=== PATIENT | male | born 1965 | race Caucasian/White ===

== ENCOUNTER 2021-03-26 10:04 | Emergency (ER) | payer MEDICAID, SELFPAY ==
[2021-03-26 10:07] VITALS: BP 129/75; PULSE 71; RESP 16; TEMP 36.5; O2SAT 99
--- NOTE | 2021-03-26 10:58 | NUR.NOTE ---
referral to [facility] for pcp establishment
[2021-03-26] MEDS: Lidocaine 2% Viscous 15 ML CUP PO (11:15)
[2021-03-26] MEDS: Clindamycin 300 MG CAP PO (11:15)
--- NOTE | 2021-03-26 11:45 | W.ED.GENAD ---
Discharge Plan Disposition Patient Disposition: HOME Condition: Stable Discharge Details Clinical Impression: Dental infection Primary Care Provider: Unknown,Unknown ED Provider: José Miguel Nick Home Meds and New Rx's Prescriptions: New clindamycin HCl 300 mg capsule 300 mg PO Q8H 10 Days Qty: 30 RF: 0 Continued lisinopril 20 mg Tablet RF: 0 oxycodone-acetaminophen [Percocet] 10-325 mg Tablet 1 tab PO Q6H PRNRF: 0 lorazepam 2 mg Tablet 2 mg PO DAILY PRNRF: 0 fluoxetine [Prozac] 20 mg Capsule 20 mg PO DAILY RF: 0 Eliquis 5 mg Tablet 5 mg PO BID RF: 0 Discharge Instructions Instructions: Dental Abscess (ED) Additional Instructions: Clindamycin as directed. Warm compresses every 2 hours for 20 minutes. Please watch for new or worsening symptoms and return to the ER for any concerns. Continue taking the Percocet you are already prescribed for your discomfort. [id number] medication as directed for symptomatic control. I have given you the local dental list, I recommend contacting all of the clinics locally to set up prompt outpatient reevaluation. I have also contacted our care management team to help expedite your outpatient primary care follow-up. Your chronic medications will need to be prescribed through 1 provider especially the narcotic medication. Please call Vivi at the [facility] at [phone]. Discharge Data Discharge Date/Time-TO BE ENTERED AT DEPARTURE: 03/26/21 11:57 Medical Decision Making 56-year-old gentleman presenting for right-sided facial pain and swelling over the past few days worsening in nature. Patient did take leftover Cipro tablets. He is also been taking his Percocet that he is prescribed. Clinically he appears well, nontoxic, is normotensive, no evidence of tachycardia, fever, trismus, etc. Airway is patent. Given his allergy to the penicillins, I will place him on oral clindamycin. Given he is on Eliquis I would prefer not to perform a digital block to avoid any potential complications. Patient is already taking Percocet, unable to take NSAIDs. I see no clear indication he requires additional narcotic medication at this time. I will provide him with viscous lidocaine. We had a lengthy conversation regarding his recent move to the area, need to establish primary care and dental follow-up. I have placed him on the care management list to help expedite outpatient primary care provider. He also states he contacted 2 or 3 local dentist and cannot be seen for a couple of days although in the broad scheme of follow-up I believe 2 or 3-day follow-up is completely appropriate. I will also provide him with the local dental list so that he may contact additional dentist to see if he can be seen sooner. Clinically there is no clear abscess formation that requires I&D or needle aspiration. Patient has chronic back pain, is prescribed Percocet on a regular basis, I feels that this medication should come from a single provider. Do not believe that refilling narcotic medication here in the ER is appropriate. He still does have some to get him through the next few days and adding him onto the care management list will hopefully expedite outpatient follow-up. Patient was given his first dose of clindamycin here in the ER and he was given viscous lidocaine as well. Patient has no additional questions or concerns and is comfortable with this plan. Standard discharge and return precautions provided This documentation was generated using [employer] system, please disregard any oddities of phrase or misspellings. HPI General Mode of arrival: ambulatory. Date/Time Provider Initiated Documentation: 03/26/21 10:21. Limitations to Documentation: no limitations. Information obtained by: patient. HPI Narrative: This is a 56-year-old male, unfortunately a rather vague and poor historian, presenting to the ER with past medical history of anxiety, chronic back pain, takes Eliquis daily, current smoker, recently relocated here from [place] for does not have a primary care provider, presenting to the ER today for a right sided dental infection. Patient states that he has poor dentition at baseline and does not have a dentist. He has contacted 2 or 3 local dentist, states that he cannot be seen for a couple of days. Patient had some leftover Cipro from her previous infection and did take a couple of those tablets over the past 24 hours. He states that he is prescribed oxycodone but that is not helping with the pain, and he is also concerned that he will be running out of this medication soon. He states that he cannot anti-inflammatory medication. Patient denies fever, headache, difficulty swallowing, chest pain, shortness of breath, nausea or vomiting. Related Data Home Medications Medication Instructions Recorded Confirmed Eliquis 5 mg PO BID 03/26/21 03/26/21 clindamycin HCl 300 mg PO Q8H 10 Days #30 cap 03/26/21 fluoxetine [Prozac] 20 mg PO DAILY 03/26/21 03/26/21 lisinopril 03/26/21 lorazepam 2 mg PO DAILY PRN 03/26/21 03/26/21 oxycodone-acetaminophen [Percocet] 1 tab PO Q6H PRN 03/26/21 03/26/21 Previous Rx's Medication Instructions Recorded clindamycin HCl 300 mg PO Q8H 10 Days #30 cap 03/26/21 Allergies Allergy/AdvReac Type Severity Reaction Status Date / Time Penicillins Allergy Unverified 03/26/21 10:10 General Stated Complaint: DentalOral BRANDY: 4 Review of Systems Constitutional Constitutional: Denies fever(s) and Denies headache(s) ENT Ears, Nose, Mouth, and Throat: Reports facial pain, Denies headache(s), Reports mouth pain, Denies neck pain and Denies sore throat Cardiovascular Cardiovascular: Denies chest pain Respiratory Respiratory: Denies cough Musculoskeletal Musculoskeletal: Denies neck pain Integumentary/Breasts Skin/Breast: Denies erythema Neurologic Neurologic: Denies headache(s) [facility] Active Problem List Dental infection (Acute) Social History Smoking/Tobacco Use Status: Current every day Smoking risk assessment performed?: Yes Alcohol Intake: former Substance use type: does not use Exam Const General: cooperative, healthy appearing, comfortable and no acute distress Orientation: alert, awake and oriented x3 HENMT Head: normal to inspection, normocephalic and atraumatic General nose exam: external nose normal Face images: 1. Mild swelling and discomfort. No erythema, warmth, fluctuance, induration or pointing abscess. Skin is intact. No evidence of trismus. Mouth: moist mucous membranes Teeth and gingiva: poor dentition (Throughout. Many teeth decayed to the gumline) Throat: posterior oropharynx normal Eyes General: appearance normal, both eyes and all related structures Conjunctivae: conjunctivae normal Neck Neck: normal visual inspection, full ROM, no lymphadenopathy, no meningeal signs, trachea midline, supple and nontender Resp Effort & Inspection: normal respiratory effort and able to speak in complete sentences Auscultation: clear to auscultation bilaterally Cardio Rate: regular rate Rhythm: regular rhythm Skin General skin exam: no rashes or lesions noted Neuro General: patient alert, patient awake, moves all extremities and no focal motor deficits Sensory Exam: no sensory deficits noted Psych Appearance: grossly normal Mental Status: mental status grossly normal Course Vital Signs Vital signs: Vital Signs Temperature 36.5 C 03/26/21 10:07 Pulse 71 03/26/21 10:07 Respiratory Rate 16 03/26/21 10:07 Blood Pressure 129/75 03/26/21 10:07 Pulse Oximetry 99 03/26/21 10:07 Temperature 36.5 C 03/26/21 10:07 Pulse 71 03/26/21 10:07 Respiratory Rate 16 03/26/21 10:07 Respiratory Effort 03/26/21 10:12 Blood Pressure 129/75 03/26/21 10:07 Blood Pressure Position Sitting 03/26/21 10:07 Pulse Oximetry 99 03/26/21 10:07 Oxygen Delivery Method Room Air 03/26/21 10:07 Oxygen Flow Rate 0 03/26/21 10:07 Pain Level 10 03/26/21 10:07
--- NOTE | 2021-03-27 13:19 | CMPROGNOTE_ITS ---
- If Service Date Differs Date of service: 03/27/21 Time of Service: 13:19 Care Management Progress Note EVELYN receives a telephone call from Alexx stating he is unable to find a dentist in the area who is accepting new patients and Medicaid. EVELYN telephones the [facility] in [place] and is advised that they are closed to new patients but that their [facility] is currently taking new patients. EVELYN contacts the [facility] at [phone] and is advised that they accept Medicaid. They additionally confirm that they are currently taking new patients. EVELYN contacts Alexx to relay the information and to provide contact information for the [facility].
== END 2021-03-26 11:57 | disposition home or self-care (01) ==
PROVIDERS: Emergency Provider Physician Assistant
DX: K04.7 Periapical abscess without sinus (principal)
CPT/HCPCS: 99283

== ENCOUNTER 2021-04-12 16:55 | Outpatient (REF) | payer MEDICAID, SELFPAY ==
[2021-04-12 15:28] LABS: ALT 71 U/L (16-63); AST 68 U/L (15-37); Albumin 3.5 g/dL (3.4-5.0); Alkaline Phosphatase 149 U/L (46-116); Anion Gap 9.9 mmol/L (3-11); BUN 18 mg/dL (7-18); Bilirubin, Total 0.7 mg/dL (0.2-1.0); CO2 27.1 mmol/L (21.0-32.0); CREATININE 1.7 mg/dL (0.70-1.30); Calcium 8.6 mg/dL (8.5-10.1); Chloride 103 mmol/L (98-107); Folate 7.3 ng/mL (8.6-20.0); Glucose 90 mg/dL (74-106); Potassium 4.1 mmol/L (3.5-5.1); Sodium 140 mmol/L (136-145); TSH (W/Ref FT4) 1.86 uIU/mL (0.36-3.74); Vitamin B12 519 pg/mL (193-986)
[2021-04-12 15:35] LABS: Absolute Basophil Count 0.03 10^3/uL (0.0-0.2); Absolute Eosinophil Count 0.05 10^3/uL (0.0-0.7); Absolute Lymphocyte Count 2.63 10^3/uL (1.2-3.4); Absolute Monocyte Count 0.46 10^3/uL (0.1-0.8); Absolute Neutrophil Count 1.66 10^3/uL (1.2-6.7); Basophils % 0.6; HCT 38.9 % (40.0-50.0); HGB 13.3 g/dL (13.5-17.5); Lymphocytes % 54.5; MCH 35.8 pg (27.0-33.0); MCHC 34.2 % (32.0-36.0); MCV 104.9 fL (80-95); MPV 10.7 fL (8.0-11.0); Monocytes % 9.5; Neutrophils % 34.4; Nucleated RBC 0 %; Platelet Count 101 10^3/uL (130-400); RBC 3.71 10^6/uL (4.36-5.78); RDW 13.4 % (11.8-14.1); RDW-SD 52.4 fL; WBC 4.83 10^3/uL (4.4-10.8)
[2021-04-16 10:23] LABS: Hepatitis C Ab w Rflx HCV PCR Reactive (Negative)
[2021-04-16 15:36] LABS: HCV RNA Detection Quantitative 1320000 IU/mL (Undetected); HCV RNA Qualitative Detected (Undetected)
== END 2021-04-12 16:56 | disposition home or self-care (01) ==
LOC: NCHCN 16:55
PROVIDERS: Visit Provider Family Medicine
DX: I10 Essential (primary) hypertension (principal); K21.9 Gastro-esophageal reflux disease without esophagitis; B19.20 Unspecified viral hepatitis C without hepatic coma; F41.8 Other specified anxiety disorders; G62.9 Polyneuropathy, unspecified; Z11.59 Encounter for screening for other viral diseases
CPT/HCPCS: 80053; 86803; 87522; 82607; 82746; 84443; 85025

== ENCOUNTER 2021-05-16 17:06 | Outpatient (REF) | payer MEDICAID, SELFPAY ==
[2021-05-16 20:37] LABS: HGB 13.3 g/dL (13.5-17.5); MCH 35.8 pg (27.0-33.0); MCHC 34.1 % (32.0-36.0); MCV 105.1 fL (80-95); Platelet Count 89 10^3/uL (130-400); RBC 3.71 10^6/uL (4.36-5.78); RDW 12.2 % (11.8-14.1); RDW-SD 48.2 fL; WBC 4.08 10^3/uL (4.4-10.8)
[2021-05-16 20:40] LABS: Bilirubin Negative (Negative); Blood Negative (Negative); Clarity Clear (Clear); Glucose Negative (Negative); Ketones Negative (Negative); Leukocyte Esterase Negative (Negative); Nitrite Negative (Negative); Specific Gravity 1.025 (1.005-1.025); pH 5.5 (5-8)
[2021-05-16 20:51] LABS: ALT 75 U/L (16-63); AST 85 U/L (15-37); Albumin 3.3 g/dL (3.4-5.0); Alkaline Phosphatase 135 U/L (46-116); Anion Gap 3.8 mmol/L (3-11); BUN 17 mg/dL (7-18); Bilirubin, Total 0.9 mg/dL (0.2-1.0); CO2 31.2 mmol/L (21.0-32.0); CREATININE 1.5 mg/dL (0.70-1.30); Calcium 8.5 mg/dL (8.5-10.1); Chloride 104 mmol/L (98-107); Estimated GFR 48.07 (mL/min/1.73m2); Glucose 88 mg/dL (74-106); Potassium 4.7 mmol/L (3.5-5.1); Sodium 139 mmol/L (136-145); Total Protein 7.7 g/dL (6.4-8.2)
[2021-05-16 21:03] LABS: ETHANOL BLOOD < 3.0 mg/dL (<10)
[2021-05-18 10:01] LABS: HIV-1/2 Ag & Ab Screen Negative (Negative)
[2021-05-18 13:35] LABS: Albumin 49.7 % (55.8-66.1)
[2021-05-22 15:40] LABS: Oxymorphone-by LC-MS/MS Negative ng/mL (Cutoff: 25)
[2021-05-22 15:41] LABS: Oxycodone Interpretation Positive; Oxycodone-by LC-MS/MS 25 ng/mL (Cutoff: 25)
[2021-05-23 15:03] LABS: 2-OH-Ethyl-Flurazepam Negative ng/mL (Cutoff: 10); 7-NH-Clonazepam Negative ng/mL (Cutoff: 10); 7-NH-Flunitrazepam Negative ng/mL (Cutoff: 10); Alpha OH-Alprazolam Negative ng/mL (Cutoff: 10); Alpha-OH Midazolam Negative ng/mL (Cutoff: 10); Alpha-OH-Triazolam Negative ng/mL (Cutoff: 10); Alprazolam Negative ng/mL (Cutoff: 10); Chlordiazepoxide Negative ng/mL (Cutoff: 10); Clonazepam Negative ng/mL (Cutoff: 10); Diazepam Negative ng/mL (Cutoff: 10); Flurazepam Negative ng/mL (Cutoff: 10); Lorazepam Negative ng/mL (Cutoff: 10); Midazolam Negative ng/mL (Cutoff: 10); N-Desmethylclobazam Negative ng/mL (Cutoff: 10); Prazepam Negative ng/mL (Cutoff: 10); Temazepam Negative ng/mL (Cutoff: 10); Triazolam Negative ng/mL (Cutoff: 10); Zolpidem Carboxylic acid Negative ng/mL (Cutoff: 10)
== END 2021-05-16 17:07 | disposition home or self-care (01) ==
LOC: NCHCN 17:06
PROVIDERS: Visit Provider Family Medicine
DX: F10.10 Alcohol abuse, uncomplicated (principal); Z00.00 Encounter for general adult medical examination without abnormal findings; Z11.4 Encounter for screening for human immunodeficiency virus [HIV]; I10 Essential (primary) hypertension; F19.10 Other psychoactive substance abuse, uncomplicated; R35.0 Frequency of micturition
CPT/HCPCS: 80053; 80365; 85027; 87389; 80320; 80346; 81003; 84165

== ENCOUNTER 2021-07-24 16:03 | Outpatient (CLI) | payer MEDICAID, SELFPAY ==
--- NOTE | 2021-07-24 13:45 | DI.MRI_ITS ---
Exam(s) MR LUMBAR SPINE WO EXAM: MR LUMBAR SPINE WO CLINICAL HISTORY: bilateral foot pain/PN with LBP,peripheral neuropathy,m79.2,m54.9. TECHNIQUE: Multiplanar multisequence MRI of the Lumbar spine was performed. COMPARISON: No exams were available for comparison FINDINGS: Bones: The last intervertebral disc space is designated the L5/S1 level for the numbering purpose of this examination. The vertebral body heights are well maintained. Alignment is satisfactory. The ma rrow signal characteristics are unremarkable. Cord: The conus tip ends at the T12 level. It is of normal size and signal intensity. T12-L1: No disc herniations or bulges are present. No central spinal canal or neural foraminal stenos is. L1-2: No disc herniations or bulges are present. No central spinal canal or neural foraminal stenosis . L2-3: No disc herniations or bulges are present. No central spinal canal or neural foraminal stenosis . L3-4: Minimal disc bulging. Mild facet degenerative changes. No central spinal canal or neural fora zaina stenosis. L4-5: The disc is well maintained in height. There is mild concentric disc bulging. No focal disc h erniation.. Prominent facet degenerative changes combine with the disc bulging to produce severe rosa tral canal stenosis. The osteophytes also moderately encroach on the neural foramen bilaterally. L5-S1: Minimal endplate osteophytes. Minimal disc bulging.. Small right lateral focal disc protrusi on which may impinge on the adjacent nerve root. Mild facet degenerative changes. No central spinal canal or neural foraminal stenosis. Soft tissues: The visualized SI joints and sacrum are well maintained. The paraspinal soft tissues ar e unremarkable. IMPRESSION: 1. Severe central canal stenosis and bilateral neural foraminal narrowing at L4-5 secondary to a com bination of disc bulging and prominent facet degenerative changes. 2. Small right lateral focal disc protrusion which appears to impinge on the adjacent nerve root. DATA REPOSITORY:
== END 2021-07-24 16:23 ==
PROVIDERS: PCP Nurse Practitioner Family; Visit Provider Psychiatry & Neurology Neurology
DX: M79.671 Pain in right foot (principal); M79.672 Pain in left foot; M54.59 Other low back pain; G62.89 Other specified polyneuropathies; M99.53 Intervertebral disc stenosis of neural canal of lumbar region; M51.37 Other intervertebral disc degeneration, lumbosacral region; G89.29 Other chronic pain
CPT/HCPCS: 72148

== ENCOUNTER 2021-10-19 16:19 | Outpatient (REF) | payer MEDICAID, SELFPAY ==
[2021-10-19 14:38] LABS: Hemoglobin A1C 5.3 % (<5.7)
[2021-10-19 14:47] LABS: BUN 17 mg/dL (7-18); CREATININE 1.2 mg/dL (0.70-1.30); Calcium 9.1 mg/dL (8.5-10.1); Chloride 96 mmol/L (98-107); Glucose 83 mg/dL (74-106); Sodium 133 mmol/L (136-145)
[2021-10-22 09:11] LABS: PSA, Screening 0.4 ng/mL (<=3.5)
== END 2021-10-19 16:20 | disposition home or self-care (01) ==
LOC: NCHCN 16:19
PROVIDERS: PCP Nurse Practitioner Family; Visit Provider Nurse Practitioner Family
DX: R35.0 Frequency of micturition (principal); R82.998 Other abnormal findings in urine; I10 Essential (primary) hypertension; Z12.5 Encounter for screening for malignant neoplasm of prostate; R79.89 Other specified abnormal findings of blood chemistry
CPT/HCPCS: 80048; 84153; 83036

== ENCOUNTER → 2021-11-13 01:12 | Outpatient (CLI) | payer MEDICAID, SELFPAY ==
--- NOTE | 2021-11-13 | DI.US_ITS ---
Exam(s) US ABDOMEN LIMITED EXAM: US ABDOMEN LIMITED CLINICAL HISTORY: HEPATIC CIRRHOSIS,K74.60,CHRONIC HEP C,B18.2,CHRONIC GASTRITIS TECHNIQUE: Ultrasound abdomen performed using standard protocol. COMPARISON: No prior exams were available for comparison. Priors were requested but have not yet ar rived. If these arrived an addendum will follow. FINDINGS: There is no ascites evident. LIVER: There are no hepatic lesions evident nor dilatation of intrahepatic ducts. GALLBLADDER/BILIARY: There are gallstones evident on the dependent wall of the gallbladder. Gallblad roger wall is not edematous and there is no pericholecystic fluid. The common hepatic duct isnot dilated, measuring 3mm at the level of xiang hepatis. PANCREAS: There is no evidence of pancreatic mass nor dilatation of the pancreatic duct. RIGHT KIDNEY:Apparently there has been partial right nephrectomy in 2009. The right kidney measures 5 .7 cm length by 3.9 x 4.5 cm. There are 2 echogenic structures at the outer aspect the kidney. Thes e may be surgical clips. Cannot exclude the fact the may represent calculi. There is no obvious mas s within the remaining right kidney and no perinephric fluid. No mass evident in the perinephric tis sues. IMPRESSION: 1. Cholelithiasis evident. No ultrasound evidence of acute cholecystitis nor dilatation of the bili bridgett tree. 2. Partial right nephrectomy. Two echogenic structures intimately related to the right kidney are p robably surgical clips. No obvious abnormal mass tissue at this level. 3. An addendum will follow if we receive the prior outside images for comparison. DATA REPOSITORY:
== END ==
PROVIDERS: PCP Nurse Practitioner Family; Visit Provider Nurse Practitioner Adult Health
DX: K74.60 Unspecified cirrhosis of liver (principal); B18.2 Chronic viral hepatitis C; K29.50 Unspecified chronic gastritis without bleeding; K80.20 Calculus of gallbladder without cholecystitis without obstruction; Z90.5 Acquired absence of kidney; F10.11 Alcohol abuse, in remission; R77.2 Abnormality of alphafetoprotein
CPT/HCPCS: 76705

== ENCOUNTER 2021-12-05 14:59 | Outpatient (REF) | payer MEDICAID, SELFPAY ==
[2021-12-05 15:47] LABS: ALT 28 U/L (16-63); AST 23 U/L (15-37); Albumin 3.9 g/dL (3.4-5.0); Alkaline Phosphatase 132 U/L (46-116); Anion Gap 9.9 mmol/L (3-11); BUN 19 mg/dL (7-18); Bilirubin, Total 0.5 mg/dL (0.2-1.0); CO2 28.1 mmol/L (21.0-32.0); CREATININE 1.3 mg/dL (0.70-1.30); Chloride 100 mmol/L (98-107); Glucose 99 mg/dL (74-106); Sodium 138 mmol/L (136-145); Total Protein 7.9 g/dL (6.4-8.2)
== END 2021-12-05 15:00 | disposition home or self-care (01) ==
LOC: NCHCN 14:59
PROVIDERS: PCP Nurse Practitioner Family; Referring Provider Nurse Practitioner Family; Visit Provider Nurse Practitioner Family
DX: Z87.890 Personal history of sex reassignment (principal); F64.8 Other gender identity disorders
CPT/HCPCS: 80053

== ENCOUNTER 2021-12-13 00:04 | Emergency (ER) | payer MEDICAID, SELFPAY ==
[2021-12-13 00:16] VITALS: BP 179/97; PULSE 75; RESP 16; TEMP 36.6; O2SAT 98
--- NOTE | 2021-12-13 00:50 | W.ED.GENAD ---
Discharge Plan Disposition Patient Disposition: HOME Condition: Stable Discharge Details Chief Complaint: PsychEval Clinical Impression: Neuropathic pain Primary Care Provider: Jessica Garcia ED Provider: Alexx Diaz Home Meds and New Rx's Prescriptions: No Action lidocaine-prilocaine 2.5-2.5 % cream 1 applic topical Q4H PRN Qty: 30 5RF Rx Instructions: apply small amount to bilateral feet prn pain bimatoprost [Latisse] 0.03 % Drops With Applicator 1 drp TOPICAL HS bimatoprost [Latisse] 0.03 % drops with applicator 1 applic topical DAILY amlodipine 5 mg tablet 5 mg PO DAILY atenolol 50 mg tablet 50 mg PO PRN pregabalin 25 mg capsule 25 cap PO DAILY Mavyret 100-40 mg tablet 3 tab PO .QHS fluoxetine [Prozac] 20 mg Capsule 20 mg PO DAILY lisinopril 20 mg tablet 40 mg PO DAILY Label Comments: increased to 40 mg per patient Discharge Instructions Instructions: Paresthesia (ED) Additional Instructions: Please follow-up with your primary care physician. Please return to the emergency department for any worsening symptoms Medical Decision Making 56-year-old male history of alcohol abuse, presents with acute on chronic neuropathic pain in bilateral feet. Has been going on for years, patient attributes it to his prior alcohol use. Complicated social situation at the moment involving being evicted from his apartment by his stepfather. Endorses that he is having trouble getting into the comforting as he lost his ID. Was picked up by EMS call was for chest pain and foot pain. Patient denies chest pain or shortness of breath. Hemodynamically stable. No SI no HI. Patient endorses that he is looking for a place to stay. I told him that he is welcome to wait in the waiting room this evening and I will have a case management referral process for him. Low suspicion for traumatic injury, no evidence of inflammation or infection, patient has warm well perfused sensate extremities is mobile ambulatory without assistance. High clinical suspicion for secondary gain for a place to stay tonight. HPI General Date/Time Provider Initiated Documentation: 12/13/21 00:48. HPI Narrative: 56-year-old male history of neuropathic pain presents brought in by EMS for acute on chronic bilateral foot pain in the setting of being kicked out of his apartment by his stepfather. Initial call was for chest pain however patient has not experienced any chest pain or respiratory distress. Patient endorses chronic neuropathic pain that he attributes to years of drinking. Denies SI denies HI. Related Data Home Medications Medication Instructions Recorded Confirmed fluoxetine 20 mg capsule (Prozac) 20 mg PO DAILY 03/26/21 12/13/21 amlodipine 5 mg tablet 5 mg PO DAILY 05/17/21 12/13/21 lisinopril 20 mg tablet 40 mg PO DAILY 08/21/21 12/13/21 lidocaine-prilocaine 2.5 %-2.5 % 1 applic topical Q4H PRN #30 grams 08/22/21 12/13/21 topical cream bimatoprost 0.03 % drops with 1 drp topical HS 10/23/21 12/13/21 applicator, eyelash base (Latisse) bimatoprost 0.03 % drops with 1 applic topical DAILY 10/30/21 12/13/21 applicator, eyelash base (Latisse) atenolol 50 mg tablet 50 mg PO PRN 12/13/21 glecaprevir 100 mg-pibrentasvir 40 3 tab PO .QHS 12/13/21 12/13/21 mg tablet (Mavyret) pregabalin 25 mg capsule 25 cap PO DAILY 12/13/21 12/13/21 Previous Rx's Medication Instructions Recorded lidocaine-prilocaine 2.5 %-2.5 % 1 applic topical Q4H PRN #30 grams 08/22/21 topical cream Allergies Allergy/AdvReac Type Severity Reaction Status Date / Time grape Allergy Severe Verified 12/13/21 00:22 ibuprofen [From Motrin] Allergy Severe Verified 12/13/21 00:22 aspirin Allergy Intermediate Verified 12/13/21 00:22 Penicillins Allergy Verified 12/13/21 00:22 General Stated Complaint: PsychEval BRANDY: 4 Review of Systems Narrative: Review of Systems Constitutional: negative Eyes: negative ENT: negative Cardiovascular: negative Respiratory: negative Gastrointestinal: negative : negative Musculoskeletal: negative Skin: negative Neurologic: Foot pain Psych: negative PFSH All Active Problems (Updated 12/13/21 @ 00:55 by Alexx Diaz MD) Lumbar stenosis without neurogenic claudication (Acute) Neuropathic pain (Acute) Dental infection (Acute) Medical History Alcohol abuse Anxiety with depression Chronic back pain Chronic kidney disease Cirrhosis, alcoholic Diverticulosis of colon GERD (gastroesophageal reflux disease) Hepatitis C Hypertension Peripheral neuropathy Renal cancer Substance abuse Surgical History H/O partial nephrectomy Family History Brother Hypertension Heart disease Father Hypertension Heart disease Mother Hypertension Heart disease Neuropathy Social History Smoking/Tobacco Use Status: Current every day Tobacco Type: cigarettes Smoking risk assessment performed?: Yes Alcohol Intake: former Substance use type: does not use Household members: family Number of Children: 2 current occupation: Retired [employer] Pets and animals: Yes Pets and animals: cat(s) and bird(s) Exam Narrative Exam Narrative: Physical Examination General: alert, awake, cooperative, resting comfortably, no acute distress HEENT: normocephalic, atraumatic; PERRL, EOM intact, conjunctiva normal; no nasal discharge; moist mucous membranes, oral and pharyngeal mucosa normal, tolerating secretions Neck: supple, trachea midline; full ROM Chest: normal to inspection Respiratory: normal respiratory effort, speaking in full sentences, clear to auscultation, no wheezing, rales or rhonchi Cardiac: regular rate, regular rhythm, S1S2 intact, no murmurs rubs or gallops GI: abdomen soft, non-tender, non-distended; no palpable mass or hepatosplenomegaly Skin: no lesions, rashes or trauma appreciated Neuro: AAOx3, normal speech, moving all extremities Extremities:Warm well perfused extremities, DP pulses intact ambulatory without assistance, no evidence of inflammation or infection; no edema no trauma Psych: Easily angered, denies SI denies HI Course Vital Signs Vital signs: Vital Signs Temperature 36.6 C 12/13/21 00:16 Pulse 75 12/13/21 00:16 Respiratory Rate 16 12/13/21 00:16 Blood Pressure 179/97 H 12/13/21 00:16 Pulse Oximetry 98 12/13/21 00:16 Temperature 36.6 C 12/13/21 00:16 Temperature Source Oral 12/13/21 00:16 Pulse 75 12/13/21 00:16 Respiratory Rate 16 12/13/21 00:16 Respiratory Effort 12/13/21 00:16 Blood Pressure 179/97 H 12/13/21 00:16 Blood Pressure Position Supine 12/13/21 00:16 Pulse Oximetry 98 12/13/21 00:16 Oxygen Delivery Method Room Air 12/13/21 00:16 Oxygen Flow Rate 0 12/13/21 00:16 Pain Level 10 12/13/21 00:16
[2021-12-13] MEDS: Acetaminophen 325 MG TAB (02:36)
== END 2021-12-13 01:02 | disposition home or self-care (01) ==
PROVIDERS: Emergency Provider Emergency Medicine; PCP Nurse Practitioner Family
DX: M79.2 Neuralgia and neuritis, unspecified (principal); M79.671 Pain in right foot; M79.672 Pain in left foot; G89.29 Other chronic pain; I12.9 Hypertensive chronic kidney disease with stage 1 through stage 4 chronic kidney disease, or unspecified chronic kidney disease; N18.9 Chronic kidney disease, unspecified; F17.210 Nicotine dependence, cigarettes, uncomplicated; Z90.5 Acquired absence of kidney
CPT/HCPCS: 99283; 99282

== ENCOUNTER 2021-12-18 13:04 | Emergency (ER) | payer MEDICAID, SELFPAY ==
--- NOTE | 2021-12-18 12:45 | RT.EKG_ITS ---
APPROVED REPORT Exam: Resting ECG Reason for Exam: dizzy Patient Location: E HR:65 bpm ECG Measurements Heart Rate 65 AXIS AK 153 P 54 QRSd 99 QRS 55 QT 417 T 52 QTc 433 Conclusion Sinus rhythm...normal P axis, V-rate 60- 99 sinus rhythm, normal axis, normal intervals, non ischemic
[2021-12-18 13:03] VITALS: BP 130/74; PULSE 64; RESP 18; TEMP 37; O2SAT 99
[2021-12-18 13:07] VITALS: RESP 18
--- NOTE | 2021-12-18 13:10 | W.ED.GENAD ---
Discharge Plan Disposition Patient Disposition: AGAINST MEDICAL ADVICE Condition: Improving Discharge Details Chief Complaint: Dizzy/Sync Clinical Impression: Dizziness Primary Care Provider: Jessica Garcia ED Provider: Alexx Diaz Home Meds and New Rx's Prescriptions: No Action lidocaine-prilocaine 2.5-2.5 % cream 1 applic topical Q4H PRN Qty: 30 5RF Rx Instructions: apply small amount to bilateral feet prn pain bimatoprost [Latisse] 0.03 % Drops With Applicator 1 drp TOPICAL HS bimatoprost [Latisse] 0.03 % drops with applicator 1 applic topical DAILY amlodipine 5 mg tablet 5 mg PO DAILY atenolol 50 mg tablet 50 mg PO PRN pregabalin 25 mg capsule 25 cap PO DAILY Mavyret 100-40 mg tablet 3 tab PO .QHS fluoxetine [Prozac] 20 mg Capsule 20 mg PO DAILY lisinopril 20 mg tablet 40 mg PO DAILY Label Comments: increased to 40 mg per patient Discharge Instructions Instructions: Dizziness (ED) Additional Instructions: Please follow-up with primary care physician. Please return to the emergency department develop any worsening symptoms. Please reach out to the resources provided to you by care management team. Medical Decision Making 56-year-old male history of neuropathy, hepatitis, presents with dizziness/lightheadedness that began while being served trespassing orders/restraining orders by [place] police. No chest pain or shortness of breath no nausea no vomiting. Blood sugar 160 in the field. No external signs of trauma no signs of intoxication. Patient is alert and oriented normal speech 5-5 strength upper and lower extremities cranial nerves II through XII intact. Likely stress reaction in the setting of restraining order placement versus dehydration versus electrolyte abnormality versus vasovagal episode versus unlikely ACS versus unlikely CVA. Will obtain basic labs, EKG, chest x-ray, CT brain. Disposition pending results. Likely will be discharged home with close follow-up 14: 55 patient resting comfortably no acute distress. Neurologically intact. Asymptomatic at this time. Patient refusing head CT and chest x-ray as he says what he can to do for me anyway or disc and kick me out. I explained to the patient that our initial concern was for his dizziness and wanted to evaluate for any intracranial process or intrathoracic process. Patient not complying with further treatment. I have contacted case planner to help provide available resources to this patient as I believe his primary reason for being here in the emergency department is his current homelessness and social situation with regards to the restraining order placed today. I will not force patient to proceed with CT and chest x-ray as he has no clinical signs of stroke thoracic or cardiopulmonary issues at this time. 15: 05 care management team to bedside offering resources and further discussion with patient however patient not receptive to conversation, interrupting conversation by taking a phone call, not allowing team to offer advice and further plan. Patient is connected with resources as an outpatient. At this time patient is medically stable, no acute distress no neurologic findings no lab abnormalities. Patient continues to obstruct the progress of his own care. At this point does not wish to further comply with evaluation. Patient be discharged AGAINST MEDICAL ADVICE. HPI General Date/Time Provider Initiated Documentation: 12/18/21 13:05. HPI Narrative: 56-year-old male history of neuropathy, hepatitis, currently experiencing lightheadedness and dizzy sensation, symptomatology arose as patient was being served a trespassing order and restraining order by state police. Patient has been evicted by his stepfather and was trespassing on the premises; denies history of cardiac disease or stroke in the past. Blood sugar 160 in the field. No weakness or numbness. No signs of trauma. Patient brought in by EMS, accompanied by [facility] police Related Data Home Medications Medication Instructions Recorded Confirmed fluoxetine 20 mg capsule (Prozac) 20 mg PO DAILY 03/26/21 12/13/21 amlodipine 5 mg tablet 5 mg PO DAILY 05/17/21 12/13/21 lisinopril 20 mg tablet 40 mg PO DAILY 08/21/21 12/13/21 lidocaine-prilocaine 2.5 %-2.5 % 1 applic topical Q4H PRN #30 grams 08/22/21 12/13/21 topical cream bimatoprost 0.03 % drops with 1 drp topical HS 10/23/21 12/13/21 applicator, eyelash base (Latisse) bimatoprost 0.03 % drops with 1 applic topical DAILY 10/30/21 12/13/21 applicator, eyelash base (Latisse) atenolol 50 mg tablet 50 mg PO PRN 12/13/21 glecaprevir 100 mg-pibrentasvir 40 3 tab PO .QHS 12/13/21 12/13/21 mg tablet (Mavyret) pregabalin 25 mg capsule 25 cap PO DAILY 12/13/21 12/13/21 Previous Rx's Medication Instructions Recorded lidocaine-prilocaine 2.5 %-2.5 % 1 applic topical Q4H PRN #30 grams 08/22/21 topical cream Allergies Allergy/AdvReac Type Severity Reaction Status Date / Time grape Allergy Severe Verified 12/13/21 00:22 ibuprofen [From Motrin] Allergy Severe Verified 12/13/21 00:22 aspirin Allergy Intermediate Verified 12/13/21 00:22 Penicillins Allergy Verified 12/13/21 00:22 General Stated Complaint: Dizzy/Sync BRANDY: 3 Review of Systems Narrative: Review of Systems Constitutional: negative Eyes: negative ENT: negative Cardiovascular: negative Respiratory: negative Gastrointestinal: negative : negative Musculoskeletal: negative Skin: negative Neurologic: dizziness Psych: negative PFSH All Active Problems (Updated 12/18/21 @ 15:08 by Alexx Diaz MD) Dizziness (Acute) Lumbar stenosis without neurogenic claudication (Acute) Neuropathic pain (Acute) Dental infection (Acute) Medical History Alcohol abuse Anxiety with depression Chronic back pain Chronic kidney disease Cirrhosis, alcoholic Diverticulosis of colon GERD (gastroesophageal reflux disease) Hepatitis C Hypertension Peripheral neuropathy Renal cancer Substance abuse Surgical History H/O partial nephrectomy Family History Brother Hypertension Heart disease Father Hypertension Heart disease Mother Hypertension Heart disease Neuropathy Social History Smoking/Tobacco Use Status: Current every day Tobacco Type: cigarettes Smoking risk assessment performed?: Yes Alcohol Intake: former Drug use: Rarely Substance use type: does not use and marijuana Household members: family Number of Children: 2 current occupation: Retired [employer] Pets and animals: Yes Pets and animals: cat(s) and bird(s) Do you feel safe at home: No (pt states he is homeless does not feel safe living on the street) Do you feel safe in your relationship?: Yes Exam Narrative Exam Narrative: Physical Examination General: alert, awake, cooperative, resting comfortably, no acute distress HEENT: normocephalic, atraumatic; PERRL, EOM intact, conjunctiva normal; no nasal discharge; moist mucous membranes, oral and pharyngeal mucosa normal, tolerating secretions Neck: supple, trachea midline; full ROM Chest: normal to inspection Respiratory: normal respiratory effort, speaking in full sentences, clear to auscultation, no wheezing, rales or rhonchi Cardiac: regular rate, regular rhythm, S1S2 intact, no murmurs rubs or gallops GI: abdomen soft, non-tender, non-distended; no palpable mass or hepatosplenomegaly Skin: no lesions, rashes or trauma appreciated Neuro: AAOx3, normal speech, moving all extremities; 5 out of 5 strength upper and lower extremities, cranial nerves II to XII intact Extremities: No trauma no peripheral edema Psych: Appropriate mood and affect Course Vital Signs Vital signs: Vital Signs Temperature 37.0 C 12/18/21 13:03 Pulse 64 12/18/21 13:03 Respiratory Rate 18 12/18/21 13:03 Blood Pressure 130/74 12/18/21 13:03 Pulse Oximetry 99 12/18/21 13:03 Temperature 37.0 C 12/18/21 13:03 Temperature Source Tympanic 12/18/21 13:03 Pulse 64 12/18/21 13:03 Respiratory Rate 18 12/18/21 13:03 Blood Pressure 130/74 12/18/21 13:03 Blood Pressure Position Supine 12/18/21 13:03 Pulse Oximetry 99 12/18/21 13:03 Oxygen Delivery Method Room Air 12/18/21 13:03 Oxygen Flow Rate 0 12/18/21 13:03
[2021-12-18 13:20] LABS: Abs Immature Grans 0.01 10^3/uL (0.0-0.06); Absolute Basophil Count 0.04 10^3/uL (0.0-0.2); Absolute Eosinophil Count 0.13 10^3/uL (0.0-0.7); Absolute Lymphocyte Count 2.63 10^3/uL (1.2-3.4); Absolute Monocyte Count 0.53 10^3/uL (0.1-0.8); Basophils % 0.7; Eosinophils % 2.1; HCT 34.7 % (40.0-50.0); HGB 12.1 g/dL (13.5-17.5); Immature Grans % 0.2; Lymphocytes % 42.8; MCH 34.6 pg (27.0-33.0); MCHC 34.9 % (32.0-36.0); MCV 99 fL (80-95); MPV 9.2 fL (8.0-11.0); Monocytes % 8.6; Neutrophils % 45.6; Platelet Count 109 10^3/uL (130-400); RDW 12.6 % (11.8-14.1); RDW-SD 45.2 fL; WBC 6.14 10^3/uL (4.4-10.8)
[2021-12-18] MEDS: Ondansetron 4 MG/2 ML VIAL IVP (13:20)
[2021-12-18] MEDS: Normal Saline 1,000 ML 1000 ML IV (13:33)
[2021-12-18 13:39] VITALS: RESP 18
[2021-12-18 13:39] LABS: ALT 33 U/L (16-63); AST 44 U/L (15-37); Albumin 3.6 g/dL (3.4-5.0); Alkaline Phosphatase 126 U/L (46-116); Anion Gap 6.4 mmol/L (3-11); BUN 17 mg/dL (7-18); Bilirubin, Total 0.5 mg/dL (0.2-1.0); CO2 30.6 mmol/L (21.0-32.0); CREATININE 1.4 mg/dL (0.70-1.30); Calcium 8.9 mg/dL (8.5-10.1); Chloride 101 mmol/L (98-107); Estimated GFR 52.05 (mL/min/1.73m2); Glucose 128 mg/dL (74-106); Potassium 3.9 mmol/L (3.5-5.1); Sodium 138 mmol/L (136-145); Total Protein 7.6 g/dL (6.4-8.2); Troponin I < 50 ng/L (<or=60)
--- NOTE | 2021-12-18 14:09 | NUR.NOTE ---
patient explained to this nurse the dizziness he is experiencing started last night (12/17/21) when he was trying to set up a tent, that was given to him, when it started raining and it was very dark outside. ODETTE, RN
--- NOTE | 2021-12-18 14:24 | PDOC.ERCMPRO ---
- If Service Date Differs Date of service: 12/18/21 Time of Service: 14:24 Care Management Progress Note SBIRT screen: positive for nicotine. Pt report he has cut back on his smoking to 6-7 cigarettes per day, but is not interested in quitting at this time. Pt is struggling with chronic pain and identifies some anxiety, based on his medical condition but does not endorse mental health symptoms beyond that
--- NOTE | 2021-12-18 14:41 | NUR.NOTE ---
patient walked out in hallway with no teleleads on, in socks, looking for this nurse. When asked he state When am I just going home. this nurse connect patient back up to his tele and BP cuff. this nurse, Spoke to Doctor about interaction. It was explained to this nurse that the patient refused chest x-ray and CT scan. Care management called to speak with patient
== END 2021-12-18 15:43 | disposition left against medical advice (07) ==
LOC: ER 15:57
PROVIDERS: Emergency Provider Emergency Medicine; PCP Nurse Practitioner Family
DX: R42 Dizziness and giddiness (principal); I12.9 Hypertensive chronic kidney disease with stage 1 through stage 4 chronic kidney disease, or unspecified chronic kidney disease; N18.9 Chronic kidney disease, unspecified; F17.210 Nicotine dependence, cigarettes, uncomplicated; Z53.20 Procedure and treatment not carried out because of patient's decision for unspecified reasons
CPT/HCPCS: 80053; 93005; 96361; 96374; 99284; 84484; 85025; 93010; J2405

== ENCOUNTER 2021-12-19 02:39 | Emergency (ER) | payer MEDICAID, SELFPAY ==
[2021-12-19 02:39] VITALS: BP 131/71; PULSE 72; RESP 16; TEMP 36.7; O2SAT 99
--- NOTE | 2021-12-19 02:50 | ED.GENADUL_ITS ---
Discharge Plan Disposition Patient Disposition: HOME Condition: Stable Discharge Details Clinical Impression: Dizziness Primary Care Provider: Jessica Garcia ED Provider: Efra Castellanos Home Meds and New Rx's Prescriptions: Continued lidocaine-prilocaine 2.5-2.5 % cream 1 applic topical Q4H PRN Qty: 30 5RF Rx Instructions: apply small amount to bilateral feet prn pain bimatoprost [Latisse] 0.03 % Drops With Applicator 1 drp TOPICAL HS bimatoprost [Latisse] 0.03 % drops with applicator 1 applic topical DAILY amlodipine 5 mg tablet 5 mg PO DAILY atenolol 50 mg tablet 50 mg PO PRN pregabalin 25 mg capsule 25 cap PO DAILY Mavyret 100-40 mg tablet 3 tab PO .QHS fluoxetine [Prozac] 20 mg Capsule 20 mg PO DAILY lisinopril 20 mg tablet 40 mg PO DAILY Label Comments: increased to 40 mg per patient Discharge Instructions Additional Instructions: Unfortunately your symptoms are likely from the lack of sleep from your social situation which we can't address tonight I have placed you on our follow up list to have a child caregiver reach out to see if theres any services they can set you up with you can always return for an exam if you feel you are more ill or are experienc ing worsening symptoms Medical Decision Making 56 yo male with hx of htn who comes in with cc of fatigue. He was recently kicked out of his family member's house and is homeless now. HE states due to this he hasn't been sleeping well. He was seen in the ED yesterday and had reassuring exam per documentation, lab work as well and left ama before head ct could be done though per chart review clinician felt this was likely of low yield. On discharge he walked to [facility] [place] throughout the day and called ems again for feeling fatigued. He denies chest pain, headache, dyspnea, n/v. HE arrives stable and has normal gait. He is caox4, speaking clearly in no distress. He has no focalmotor or sensation deficits and CN II-XII are intact. NIH of 0, reassuring Hints exam. His symptoms are likely related to his decreased sleep from his living situation which I advised at the current time I was not able to help him with but could have care management meet with him or reach out to him. There is no findings to suggest central stroke/vertigo though did offer to do the head CT which he declined to do. Had lab work done yesterday so do not feel any lab work indicated now. Will place on care management list to reach out to him to see if there are any services they can help with in terms of getting his medications and other resources. Advised to f/u with pcp, return precautions given Differential Diagnosis Differential Diagnosis: lack of sleep, vertigo Medical Records Medical records reviewed: Yes I reviewed the patient's medical records. HPI General Mode of arrival: EMS . Date/Time Provider Initiated Documentation: 12/19/21 02:43 . Limitations to Documentation: no limitations . Information obtained by: patient . History of Present Illness 56 year old M presents to the emergency department with the chief complaint of tired, Patient started experiencing this week(s) (1) and it has been constant. No relieving factors improve symptom(s), No exacerbating factors reported . Patient did receive the following treatments prior to arrival, none Related Data Home Medications Medication Instructions Recorded Confirmed fluoxetine 20 mg capsule (Prozac) 20 mg PO DAILY 03/26/21 12/19/21 amlodipine 5 mg tablet 5 mg PO DAILY 05/17/21 12/19/21 lisinopril 20 mg tablet 40 mg PO DAILY 08/21/21 12/19/21 lidocaine-prilocaine 2.5 %-2.5 % 1 applic topical Q4H PRN #30 grams 08/22/21 12/19/21 topical cream bimatoprost 0.03 % drops with 1 drp topical HS 10/23/21 12/19/21 applicator, eyelash base (Latisse) bimatoprost 0.03 % drops with 1 applic topical DAILY 10/30/21 12/19/21 applicator, eyelash base (Latisse) atenolol 50 mg tablet 50 mg PO PRN 12/13/21 glecaprevir 100 mg-pibrentasvir 40 3 tab PO .QHS 12/13/21 12/19/21 mg tablet (Mavyret) pregabalin 25 mg capsule 25 cap PO DAILY 12/13/21 12/19/21 Previous Rx's Medication Instructions Recorded lidocaine-prilocaine 2.5 %-2.5 % 1 applic topical Q4H PRN #30 grams 08/22/21 topical cream Allergies Allergy/AdvReac Type Severity Reaction Status Date / Time grape Allergy Severe Verified 12/19/21 02:43 ibuprofen [From Motrin] Allergy Severe Verified 12/19/21 02:43 aspirin Allergy Intermediate Verified 12/19/21 02:43 Penicillins Allergy Verified 12/19/21 02:43 General Stated Complaint: GenMedical BRANDY: 3 Review of Systems All systems reviewed & are unremarkable except as noted in HPI and below Constitutional Constitutional: Denies chills, Denies fever(s) and Denies weakness Eyes Eyes: Denies loss of vision Cardiovascular Cardiovascular: Denies chest pain and Denies dyspnea Respiratory Respiratory: Denies cough and Denies dyspnea Gastrointestinal Gastrointestinal: Denies abdominal pain, Denies nausea and Denies vomiting Integumentary/Breasts Skin/Breast: Denies rash Neurologic Neurologic: Denies loss of vision and Denies weakness PFS All Active Problems (Updated 12/19/21 @ 02:50 by Efra Castellanos MD) Dizziness (Acute) Lumbar stenosis without neurogenic claudication (Acute) Neuropathic pain (Acute) Dental infection (Acute) Medical History Alcohol abuse Anxiety with depression Chronic back pain Chronic kidney disease Cirrhosis, alcoholic Diverticulosis of colon GERD (gastroesophageal reflux disease) Hepatitis C Hypertension Peripheral neuropathy Renal cancer Substance abuse Surgical History H/O partial nephrectomy Family History Brother Hypertension Heart disease Father Hypertension Heart disease Mother Hypertension Heart disease Neuropathy Social History Smoking/Tobacco Use Status: Current every day Tobacco Type: cigarettes Smoking risk assessment performed?: Yes Alcohol Intake: former Drug use: Rarely Substance use type: does not use and marijuana Household members: family Number of Children: 2 current occupation: Retired [employer] Pets and animals: Yes Pets and animals: cat(s) and bird(s) Do you feel safe at home: No (pt states he is homeless does not feel safe living on the street) Do you feel safe in your relationship?: Yes Exam Const General: no acute distress Orientation: alert HENMT Head: normal to inspection Ears: external ears normal General nose exam: external nose normal Mouth: moist mucous membranes Eyes General: appearance normal, both eyes and all related structures Neck Neck: normal visual inspection Resp Effort & Inspection: normal respiratory effort and able to speak in complete sentences Cardio Rate: regular rate Skin General skin exam: no rashes or lesions noted Neuro General: patient alert and patient oriented x3 Extrem General: normal to inspection Psych Mental Status: mental status grossly normal Course Vital Signs Vital signs: Vital Signs Temperature 36.7 C 12/19/21 02:39 Pulse 72 12/19/21 02:39 Respiratory Rate 16 12/19/21 02:39 Blood Pressure 131/71 12/19/21 02:39 Pulse Oximetry 99 12/19/21 02:39 Temperature 36.7 C 12/19/21 02:39 Temperature Source Skin 12/19/21 02:39 Pulse 72 12/19/21 02:39 Respiratory Rate 16 12/19/21 02:39 Respiratory Effort 12/19/21 02:39 Blood Pressure 131/71 12/19/21 02:39 Blood Pressure Position Sitting 12/19/21 02:39 Pulse Oximetry 99 12/19/21 02:39 Oxygen Delivery Method Room Air 12/19/21 02:39 Oxygen Flow Rate 0 12/19/21 02:39 Pain Level 9 12/19/21 02:39 Comment 12/19/21 02:39
[2021-12-19 04:39] VITALS: RESP 16
== END 2021-12-19 03:06 | disposition home or self-care (01) ==
PROVIDERS: Emergency Provider Emergency Medicine; PCP Nurse Practitioner Family
DX: R42 Dizziness and giddiness (principal); R53.83 Other fatigue; I12.9 Hypertensive chronic kidney disease with stage 1 through stage 4 chronic kidney disease, or unspecified chronic kidney disease; N18.9 Chronic kidney disease, unspecified; F17.210 Nicotine dependence, cigarettes, uncomplicated; Z59.00 Homelessness unspecified
CPT/HCPCS: 99281

== ENCOUNTER 2021-12-19 05:59 | Emergency (ER) | payer MEDICAID, SELFPAY ==
[2021-12-19 06:09] VITALS: BP 129/83; PULSE 61; RESP 18; TEMP 36.3; O2SAT 100
[2021-12-19 06:10] VITALS: RESP 18
== END 2021-12-19 06:15 ==
LOC: ER 06:24
PROVIDERS: PCP Nurse Practitioner Family
DX: Z53.21 Procedure and treatment not carried out due to patient leaving prior to being seen by health care provider (principal)

== ENCOUNTER 2022-02-07 20:44 | Outpatient (REF) | payer MEDICAID, SELFPAY ==
[2022-02-07 19:28] LABS: Anion Gap 6.2 mmol/L (3-11); BUN 14 mg/dL (7-18); CO2 29.8 mmol/L (21.0-32.0); CREATININE 1.2 mg/dL (0.70-1.30); Calcium 9.2 mg/dL (8.5-10.1); Chloride 98 mmol/L (98-107); Estimated GFR 69.66 (mL/min/1.73m2); Glucose 109 mg/dL (74-106); Potassium 4.2 mmol/L (3.5-5.1); Sodium 134 mmol/L (136-145)
== END 2022-02-07 20:45 | disposition home or self-care (01) ==
LOC: NCHCN 20:44
PROVIDERS: PCP Nurse Practitioner Family; Visit Provider Nurse Practitioner Family
DX: I10 Essential (primary) hypertension (principal)
CPT/HCPCS: 80048

== ENCOUNTER 2022-02-24 21:12 | Inpatient (IN) | payer MEDICAID, SELFPAY ==
[2022-02-24] VITALS (44 sets, daily range): BP systolic 90–168; BP diastolic 62–98; PULSE 57–80; RESP 12–21; TEMP 36.7; O2SAT 91–100
--- NOTE | 2022-02-24 21:15 | DI.RAD_ITS ---
Exam(s) XR PORTABLE CHEST AP EXAM: XR PORTABLE CHEST AP CLINICAL HISTORY: post intubation TECHNIQUE: 2D digital imaging was performed of the chest. One image was obtained. An AP view was ob tained. COMPARISON: No exams were available for comparison FINDINGS: MEDIASTINUM: Normal. HEART: Normal. PULMONARY VASCULATURE: Normal. LUNGS: Clear. PLEURAL SPACE: No pleural effusion or pneumothorax. BONE:Within normal limits for the patient's age. There is an old healed right clavicular fracture. OTHER FINDINGS:The tip of the endotracheal tube is seen at the level of the clavicles approximately 9 cm above the irma. The endotracheal tube passes into the stomach. The tip, though not included o n this examination, is below the diaphragm. IMPRESSION: 1. Endotracheal and enteric tubes are in place as discussed above. 2. No acute pulmonary process. DATA REPOSITORY: RADIATION DOSE DELIVERED:
--- NOTE | 2022-02-24 21:15 | DI.CT_ITS ---
Exam(s) CT HEAD WO EXAM: CT HEAD WO CLINICAL HISTORY: altered. TECHNIQUE: Imaging Protocol: Axial computed tomography images with coronal and sagittal reformatted images were created and reviewed COMPARISON: No exams were available for comparison FINDINGS: Ventricles and Extra axial spaces: Normal in size and morphology for the patient's age. Hemorrhage: None. Cerebral parenchyma: Normal. Midline shift: None. Brainstem/Cerebellum: Normal. Calvarium: Normal. Visualized Paranasal sinuses/Mastoids: Mucosal thickening in the visualized paranasal sinuses is note d particularly the maxillary and ethmoid air cells. The mastoid air cells are clear. Soft Tissues: Unremarkable. IMPRESSION: No acute intracranial process. RADIATION DOSE DELIVERED: 828.79mGy.cm Total DLP DATA REPOSITORY: All CT scans at this facility are submitted to the National Radiology Data Registry (NRDR) Dose Index Registry (DIR) with the [employer] (A[employer]). RADIATION OPTIMIZATION: All CT scans at this facility use at least one of these dose optimization te chniques: automated exposure control; mA and/or kV adjustment per patient size (includes targeted exa ms where dose is matched to clinical indication); or iterative reconstruction.
--- NOTE | 2022-02-24 21:43 | ED.GENADUL_ITS ---
Discharge Plan Disposition Patient Disposition: [facility] INPATIENT Condition: Serious Discharge Details Chief Complaint: OD/Poison Clinical Impression: Benzodiazepine overdose, Somnolence, AMS (altered mental status) Primary Care Provider: Jessica Garcia ED Provider: Rohan Martel Home Meds and New Rx's Prescriptions: No Action bimatoprost [Latisse] 0.03 % Drops With Applicator 1 drp TOPICAL HS bimatoprost [Latisse] 0.03 % drops with applicator 1 applic topical DAILY amlodipine 5 mg tablet 5 mg PO DAILY pregabalin 25 mg capsule See Rx Instructions PO BID Qty: 28 0RF Rx Instructions: Rx #1 25mg BID x 2 wk, then Rx #2 pregabalin 50 mg capsule 50 mg PO BID Qty: 60 5RF Rx Instructions: Rx #2 after titration. atenolol 50 mg tablet 50 mg PO PRN Mavyret 100-40 mg tablet 3 tab PO .QHS fluoxetine [Prozac] 20 mg Capsule 20 mg PO DAILY lisinopril 20 mg tablet 40 mg PO DAILY Label Comments: increased to 40 mg per patient Medical Decision Making This is a 57-year-old male who identifies as female who presents today for overdose. Patient states that she has been drinking alcohol all throughout the day and at around noon began starting to take 2 mg alprazolam's. Patient took upwards of 20+ tablets throughout the afternoon. This evening the patient was found obtunded by the hotel staff, and EMS was called. When EMS arrived the patient was notably animated and talkative and discussed what been going on throughout the day. However as the patient transitioned here the patient became more responsive and more fatigued appearing. Blood glucose is normal. Patient was brought to the ER for further management. Patient denies any other drug use. Physical exam demonstrates a notably altered patient. Patient has no gag ref michelle. Patient is breathing spontaneously with a diminished respiratory effort. Oxygenation remained stable. GCS is around 10-11, however with no gag reflex I am very concerned for potential aspiration. Patient is quite altered and extremely sleepy. EMS states that just in the last 30 minutes there has been a notable decline in the patient's mental status and alertness. I am worried that the patient has had a large amount of ingestants just before arrival, and that we are beginning to see the effects of this now. For protection of the patient's airway, prevention of life-threatening deterioration, we will electively intubate the patient. This was discussed with the patient however the patient did not at all comprehend what was going on, and only asked what her heart rate was multiple times. 10:44 PM Patient was intubated successfully without any complication or difficulty. Patient remained stable on low-dose propofol. Laboratory work-up demonstrates no significant abnormalities. Potassium is slightly low at 3.3, we will replenish this. Transaminases are at baseline. Thyroid function stable. Alcohol level low. Salicylate is 6.9. We will get a repeat level in 2 hours. Acetaminophen normal. We did contact poison control and they had no additional recommendations. Pending CT scan of the head. Patient stable and is a good candidate for admission to the ICU. 11:[address] scan of the head is negative for acute process. Patient remained stable on the vent. Discussed the case with Dr. Capps. He agrees with the assessment and plan. I have extensively reviewed the treatment plan with the patient. I have addressed all patient concerns at this time. I have also discussed the plan with the admitting physician and they agree with the current assessment and plan and have agreed to assume responsibility for the patient. All parties demonstrate verbal understanding and agreement with our assessment and plan at this time. The documentation in this chart was dictated using Vidible dictation software. Please excuse any dictation errors. EKG 21: 55 Rate 61, sinus rhythm, no significant ST elevation or depression. Intervals are stable. No evidence of STEMI. QRS is minimally widened at 109, but on comparison appears very similar to baseline from prior EKG on 12/18/2021 FINDINGS: Tubes, catheters and devices: Endotracheal tube is in place with distal tip approximately 9.7 cm proximal to the irma, at the level of the clavicular heads. Enteric tube is in place with distal tip and side port subdiaphragmatic, side port approximately 4-5 cm distal to expected location of GE junction. Lungs: Lungs are adequately inflated and symmetric. No focal consolidation. Asymmetric streaky right perihilar opacity suspected to represent subsegmental atelectasis but nonspecific. Pleural spaces: No visible pleural effusion. No pneumothorax. Heart/Mediastinum: Cardiomediastinal contours within normal limits. Bones/joints: Old healed right midclavicular fracture. No acute osseous finding. IMPRESSION: Endotracheal and enteric tubes are in place as discussed. Thank you for allowing us to participate in the care of your patient. Dictated and Authenticated by: Sea Perales MD 02/24/2022 10:57 PM Eastern Time ([place] & [place]) FINDINGS: Brain: Normal volume for age. No acute intracranial hemorrhage. Perez-white matter differentiation is grossly preserved. No edema. No midline shift or herniation. Cerebral ventricles: No ventriculomegaly. Paranasal sinuses: Mucosal thickening of the ethmoid air cells. There is trace mucoid debris within the dependent maxillary sinuses. Otherwise no air-fluid levels. Mastoid air cells: No mastoid effusion. Pharynx: Mucosal thickening within the nasal cavity with low-attenuation material within the nasopharynx. Bones/joints: Persistent metopic suture, normal anatomic variant. No discrete, displaced, or depressed fracture. Soft tissues: No focal soft tissue abnormality. IMPRESSION: No acute intracranial finding. Thank you for allowing us to participate in the care of your patient. Dictated and Authenticated by: Sea Perales MD 02/24/2022 11:06 PM Eastern Time ([place] & [place]) HPI General Date/Time Provider Initiated Documentation: 02/24/22 21:21 . HPI Narrative: This is a 57-year-old male who identifies as female who presents today for overdose. Patient states that she has been drinking alcohol all throughout the day and at around noon began starting to take 2 mg alprazolam's. Patient took upwards of 20+ tablets throughout the afternoon. This evening the patient was found obtunded by the hotel staff, and EMS was called. When EMS arrived the patient was notably animated and talkative and discussed what been going on throughout the day. However as the patient transitioned here the patient became more responsive and more fatigued appearing. Blood glucose is normal. Patient was brought to the ER for further management. Patient denies any other drug use. Related Data Home Medications Medication Instructions Recorded Confirmed fluoxetine 20 mg capsule (Prozac) 20 mg PO DAILY 03/26/21 01/10/22 amlodipine 5 mg tablet 5 mg PO DAILY 05/17/21 01/10/22 lisinopril 20 mg tablet 40 mg PO DAILY 08/21/21 01/10/22 bimatoprost 0.03 % drops with 1 drp topical HS 10/23/21 01/10/22 applicator, eyelash base (Latisse) bimatoprost 0.03 % drops with 1 applic topical DAILY 10/30/21 01/10/22 applicator, eyelash base (Latisse) atenolol 50 mg tablet 50 mg PO PRN 12/13/21 01/10/22 glecaprevir 100 mg-pibrentasvir 40 3 tab PO .QHS 12/13/21 01/10/22 mg tablet (Mavyret) pregabalin 25 mg capsule See Rx Instructions PO BID #28 caps 01/15/22 pregabalin 50 mg capsule 50 mg PO BID #60 caps 01/15/22 Previous Rx's Medication Instructions Recorded pregabalin 25 mg capsule See Rx Instructions PO BID #28 caps 01/15/22 pregabalin 50 mg capsule 50 mg PO BID #60 caps 01/15/22 Allergies Allergy/AdvReac Type Severity Reaction Status Date / Time grape Allergy Severe Verified 01/10/22 11:21 ibuprofen [From Motrin] Allergy Severe Verified 01/10/22 11:21 aspirin Allergy Intermediate Verified 01/10/22 11:21 Penicillins Allergy Verified 01/10/22 11:21 General BRANDY: 5 Review of Systems All systems reviewed & are unremarkable except as noted in HPI and below PFSH All Active Problems (Updated 02/24/22 @ 23:21 by Rohan Martel DO) Benzodiazepine overdose (Acute) Somnolence (Acute) AMS (altered mental status) (Acute) Lumbar stenosis without neurogenic claudication (Acute) Neuropathic pain (Acute) Dental infection (Acute) Medical History Alcohol abuse Anxiety with depression Chronic back pain Chronic kidney disease Cirrhosis, alcoholic Diverticulosis of colon GERD (gastroesophageal reflux disease) Hepatitis C Hypertension Peripheral neuropathy Renal cancer Substance abuse Surgical History H/O partial nephrectomy Family History Brother Hypertension Heart disease Father Hypertension Heart disease Mother Hypertension Heart disease Neuropathy Social History Smoking/Tobacco Use Status: Current every day Tobacco Type: cigarettes Smoking risk assessment performed?: Yes Alcohol Intake: former Drug use: Rarely Substance use type: marijuana Household members: family Number of Children: 2 current occupation: Retired [employer] Pets and animals: Yes Pets and animals: cat(s) and bird(s) Do you feel safe at home: No (pt states he is homeless does not feel safe living on the street) Do you feel safe in your relationship?: Yes Exam Narrative Exam Narrative: 1.Const: Well-nourished, Well-developed, appearing stated age 2.Eyes: PERRL, no conjunctival injection, and symmetrical lids. 3.ENT: Atraumatic external nose and ears. Moist MM. Neck: Symmetric, trachea midline, No thyromegaly. 4.CVS: +S1/S2, No murmurs or gallops. Peripheral pulses 2+ and equal in all extremities. Brisk capillary refill in all extremities. 5.RESP: Unlabored but diminished respiratory effort. Clear to auscultation bilaterally. No wheezes rales or rhonchi 6.GI: Soft, Nontender/Nondistended, No hepatosplenomegaly. No guarding or rebound. 7.MSK: Normocephalic/Atraumatic, Extremities w/o deformity or ttp No cyanosis or clubbing, Normal movement of all extremities 8.Skin: Warm, Dry. No rashes or lesions. 9.Neuro: purchasing administrative assistant II-XII grossly intact. Sensation grossly intact, no focal neurologic deficits. 10.Psych: (AAO) x1. Notably altered. Speech minimally slurred. Patient appears intoxicated or under the influence of high-dose benzos. Procedures Intubation Time out performed: Yes sedative: Etomidate Mg Given: 20 paralytic: Rocuronium Mg Given: 100 Laryngoscope: other (glidescope) ET Tube Size: 7 ET Tube Uncuffed: No Tube Secured Depth (cm): 22 Tube Secured Location: teeth Tube Placement Confirmation: visualized tube passing through cords, equal breath sounds bilaterally, no breath sounds over epigastrum and confirmation by capnometry Patient Tolerated Procedure: well and no complications Intubation Complications: none Critical Care Time Critical Care Time Critical Care Time: Yes Total Critical Care Time: 45 Attestation: Upon my evaluation, this patient had a high probability of imminent or life- threatening deterioration, which required my direct attention, intervention, and personal management. I have personally provided 45 minutes of critical care time exclusive of time spent on separately billable procedures. Time includes review of laboratory data, radiology results, discussion with consultants, and monitoring for potential decompensation. Interventions were performed as documented.
[2022-02-24] MEDS: Normal Saline 1,000 ML 1000 ML IV (21:45)
--- NOTE | 2022-02-24 21:45 | RT.EKG_ITS ---
APPROVED REPORT Exam: Resting ECG Reason for Exam: od Patient Location: E HR:61 bpm ECG Measurements Heart Rate 61 AXIS CA 145 P -3 QRSd 109 QRS 24 QT 431 T 22 QTc 436 Conclusion Sinus rhythm...normal P axis, V-rate 60- 99 PHysician: Rate 61, sinus rhythm, no significant ST elevation or depression. Intervals are stable. No evidence of STEMI. QRS is minimally widened at 109, but on comparison appears very similar to lanny cee from prior EKG on 12/18/2021
[2022-02-24 21:48] LABS: Abs Immature Grans 0.03 10^3/uL (0.0-0.06); Absolute Basophil Count 0.06 10^3/uL (0.0-0.2); Absolute Eosinophil Count 0.42 10^3/uL (0.0-0.7); Absolute Lymphocyte Count 2.66 10^3/uL (1.2-3.4); Absolute Monocyte Count 0.58 10^3/uL (0.1-0.8); Absolute Neutrophil Count 3.12 10^3/uL (1.2-6.7); Basophils % 0.9; Eosinophils % 6.1; HCT 40.2 % (40.0-50.0); HGB 14.3 g/dL (13.5-17.5); Immature Grans % 0.4; Lymphocytes % 38.7; MCH 35.6 pg (27.0-33.0); MCHC 35.6 % (32.0-36.0); MCV 100 fL (80-95); MPV 9.2 fL (8.0-11.0); Monocytes % 8.4; Neutrophils % 45.5; Platelet Count 135 10^3/uL (130-400); RBC 4.02 10^6/uL (4.36-5.78); RDW 14.6 % (11.8-14.1); RDW-SD 54.3 fL; WBC 6.87 10^3/uL (4.4-10.8)
[2022-02-24] MEDS: Etomidate 20 MG/10 ML VIAL IVP (22:03)
[2022-02-24] MEDS: Rocuronium 50 MG/5 ML SYR 100 MG IVP (22:05)
[2022-02-24 22:09] LABS: ALT 64 U/L (16-63); AST 45 U/L (15-37); Alkaline Phosphatase 108 U/L (46-116); Anion Gap 7.6 mmol/L (3-11); BUN 15 mg/dL (7-18); Bilirubin, Total 0.5 mg/dL (0.2-1.0); CO2 30.4 mmol/L (21.0-32.0); CREATININE 1.5 mg/dL (0.70-1.30); Chloride 99 mmol/L (98-107); ETHANOL BLOOD 83.6 mg/dL (<10); Glucose 87 mg/dL (74-106); Potassium 3.3 mmol/L (3.5-5.1); Sodium 137 mmol/L (136-145); TSH (W/Ref FT4) 0.84 uIU/mL (0.36-3.74); Total Protein 8.7 g/dL (6.4-8.2)
[2022-02-24 22:11] LABS: Salicylate 6.9 mg/dL (<2.8)
[2022-02-24 22:12] LABS: Acetaminophen < 2 ug/mL (10-30)
[2022-02-24] MEDS: PROPOFOL 1,000 MG/100 ML BTL 11.25 MG IVPB (22:20)
--- NOTE | 2022-02-24 22:58 | DI.VRAD_ITS ---
PROCEDURE INFORMATION: Exam: XR Chest Exam date and time: 02/24/2022 10:10 PM Age: 57 years old Clinical indication: Device placement; Other: Post intubation TECHNIQUE: Imaging protocol: Radiologic exam of the chest. Views: 1 view. COMPARISON: No relevant prior studies available. FINDINGS: Tubes, catheters and devices: Endotracheal tube is in place with distal tip approximately 9.7 cm proximal to the irma, at the level of the clavicular heads. Enteric tube is in place with distal tip and side port subdiaphragmatic, side port approximately 4-5 cm distal to expected location of GE junction. Lungs: Lungs are adequately inflated and symmetric. No focal consolidation. Asymmetric streaky right perihilar opacity suspected to represent subsegmental atelectasis but nonspecific. Pleural spaces: No visible pleural effusion. No pneumothorax. Heart/Mediastinum: Cardiomediastinal contours within normal limits. Bones/joints: Old healed right midclavicular fracture. No acute osseous finding. IMPRESSION: Endotracheal and enteric tubes are in place as discussed. Dictated and Authenticated by: Sea Perales MD. Ordering:MELBA Madrigal MD
[2022-02-24] MEDS: Normal Saline 1,000 ML 150 ML IV (23:00)
[2022-02-24 23:06] LABS: Source Nasal/Nares
--- NOTE | 2022-02-24 23:07 | DI.VRAD_ITS ---
PROCEDURE INFORMATION: Exam: CT Head Without Contrast Exam date and time: 02/24/2022 10:40 PM Age: 57 years old Clinical indication: Altered mental status/memory loss; Other: AMS TECHNIQUE: Imaging protocol: Computed tomography of the head without contrast. Radiation optimization: All CT scans at this facility use at least one of these dose optimization techniques: automated exposure control; mA and/or kV adjustment per patient size (includes targeted exams where dose is matched to clinical indication); or iterative reconstruction. COMPARISON: No relevant prior studies available. FINDINGS: Brain: Normal volume for age. No acute intracranial hemorrhage. Perez-white matter differentiation is grossly preserved. No edema. No midline shift or herniation. Cerebral ventricles: No ventriculomegaly. Paranasal sinuses: Mucosal thickening of the ethmoid air cells. There is trace mucoid debris within the dependent maxillary sinuses. Otherwise no air-fluid levels. Mastoid air cells: No mastoid effusion. Pharynx: Mucosal thickening within the nasal cavity with low-attenuation material within the nasopharynx. Bones/joints: Persistent metopic suture, normal anatomic variant. No discrete, displaced, or depressed fracture. Soft tissues: No focal soft tissue abnormality. IMPRESSION: No acute intracranial finding. Dictated and Authenticated by: Sea Perales MD. Ordering:MELBA Madrigal MD
[2022-02-24 23:10] LABS: Bilirubin Negative (Negative); Blood Negative (Negative); Clarity Clear (Clear); Glucose Negative (Negative); Ketones Negative (Negative); Leukocyte Esterase Negative (Negative); Nitrite Negative (Negative); Specific Gravity 1.015 (1.005-1.025); Urobilinogen 0.2 EU/dL (Up TO 0.2); pH 6.5 (5-8)
[2022-02-24 23:23] LABS: *AMPHETAMINES SCREEN URINE Negative (Negative); *BARBITURATES SCREEN URINE Negative (Negative); *BENZODIAZEPINES SCREEN URINE Positive (Negative); Cannabinoids THC Positive (Negative); Cocaine Screen,Urine Positive (Negative); METHADONE URINE SCREEN Negative (Negative); OPIATES URINE SCREEN Negative (Negative); Tricyclic Antidepressants Negative (Negative)
[2022-02-24] MEDS: POTASSIUM CHLORIDE 20 MEQ/100 ML BAG 50 MEQ IVPB (23:25)
[2022-02-24 23:36] LABS: Magnesium 1.7 mg/dL (1.8-2.4)
[2022-02-24 23:42] LABS: COVID-19 PCR Negative (Negative)
--- NOTE | 2022-02-24 23:56 | HPE_ITS ---
Date of service: 02/24/22 Time of Service: 23:56 Assessment and Plan Assessment and plan (1) Benzodiazepine overdose: Start date: 02/24/22 Status: Acute Assessment and plan: This is a 57-year-old gentleman who prefers to be called she, Diane, who was brought to the ED obtunded from alcohol intake all the day of admission plus an overdose of Xanax which she had at home and was taking throughout the day with up to 20 tablets swallows. He had advancing respiratory suppression and did not have a gag reflex. He was intubated in a controlled fashion with sedation using propofol and will be supported protecting airway as he clears his Xanax overdose. He will need respiratory support for at least 24 hours and his OG tube did have some pill particles when placed to suction which will continue to be in place. He did not have suicidal ideation by review when he reported to the ED. He does have chronic depression. He is a full code. (2) Substance abuse: Assessment and plan: Patient had cocaine in his urine drug screen and alcohol level was elevated with patient also slightly dehydrated which will be treated with IV fluids. His electrolyte abnormalities will also be repleted. As he awakens we need to watch closely for alcohol withdrawal. Long-term he needs assistance with substance abuse and should not be prescribed addictive medications. (3) Anxiety with depression: Assessment and plan: Patient has chronic depression and anxiety and most likely should not be prescribed benzodiazepines in the future. He had a large bottle of different colored Xanax tablets and Xanax is not on his active list. The pill bottle was from last year. (4) Alcohol abuse: Assessment and plan: Patient was drinking alcohol all day and will need to be on CIWA protocol once he clears his Xanax overdose. He was not suicidal and should seek treatment for his substance abuse. (5) Hepatitis C: Assessment and plan: On treatment by medication list but this needs to be cleared once patient awakens. (6) Hypertension: Assessment and plan: Hold medications while patient is sedated with propofol which may cause hypotension. Reevaluate once patient awakens. This may be associate with chronic alcohol use and needs reevaluation. (7) Peripheral neuropathy: Assessment and plan: Chronically on Lyrica which will be restarted once patient awakens. Patient should avoid addictive medications. History of Present Illness History of Present Illness Chief Complaint: Overdose Xanax with alcohol intoxication Narrative: This is a 57-year-old male patient who identifies himself as female presenting to the ED after being found in his apartment by staff having been drinking alcohol daily and taking more than 20 tablets of his Xanax 2 mg tablets. The patient was awake in the ED and did not endorse suicidal ideation but was simply overmedicating with alcohol and Xanax. He was very talkative earlier in the ED visit but did not have a gag reflex and was intubated and sedated to guard his airway anticipating further sedation with his Xanax dosing. He did have an OG tube placed and some pill particles were found once he was in ICU with the OG being placed to suction. The patient did have a low potassium level and had repletion of potassium in the ED. Magnesium was also being checked and repleted if needed. The bigger concern would be sedation and less so alcohol withdrawal with benzodiazepine overdose. As he clears his benzodiazepine he will need to be watched closely for alcohol withdrawal if he remains hospitalized. He is a full code. His medication list and chronic medical problems were not able to be reviewed and as says it appears he is on treatment for hep C and chronic myalgias and pain along with mood disorder. See ED note for evaluation and discussion while patient still speaking. Review of Systems Narrative: 13 point review of systems otherwise unrevealing and unobtainable with patient being intubated and sedated. PFSH All Active Problems Benzodiazepine overdose (Acute) Somnolence (Acute) AMS (altered mental status) (Acute) Lumbar stenosis without neurogenic claudication (Acute) Neuropathic pain (Acute) Dental infection (Acute) Medical History Alcohol abuse Anxiety with depression Chronic back pain Chronic kidney disease Cirrhosis, alcoholic Diverticulosis of colon GERD (gastroesophageal reflux disease) Hepatitis C Hypertension Peripheral neuropathy Renal cancer Substance abuse Surgical History H/O partial nephrectomy Family History Brother Hypertension Heart disease Father Hypertension Heart disease Mother Hypertension Heart disease Neuropathy Social History Smoking/Tobacco Use Status: Current every day Tobacco Type: cigarettes Smoking risk assessment performed?: Yes Alcohol Intake: former Drug use: Rarely Substance use type: marijuana Household members: family Number of Children: 2 current occupation: Retired [employer] Pets and animals: Yes Pets and animals: cat(s) and bird(s) Do you feel safe at home: No (pt states he is homeless does not feel safe living on the street) Do you feel safe in your relationship?: Yes Meds Allergies and Home Medications Allergies Allergy/AdvReac Type Severity Reaction Status Date / Time grape Allergy Severe Verified 01/10/22 11:21 ibuprofen [From Motrin] Allergy Severe Verified 01/10/22 11:21 aspirin Allergy Intermediate Verified 01/10/22 11:21 Penicillins Allergy Verified 01/10/22 11:21 Home Medications Medication Instructions Recorded Confirmed Type fluoxetine 20 mg capsule (Prozac) 20 mg PO DAILY 03/26/21 01/10/22 History amlodipine 5 mg tablet 5 mg PO DAILY 05/17/21 01/10/22 History lisinopril 20 mg tablet 40 mg PO DAILY 08/21/21 01/10/22 History bimatoprost 0.03 % drops with 1 drp topical HS 10/23/21 01/10/22 History applicator, eyelash base (Latisse) bimatoprost 0.03 % drops with 1 applic topical DAILY 10/30/21 01/10/22 History applicator, eyelash base (Latisse) atenolol 50 mg tablet 50 mg PO PRN 12/13/21 01/10/22 History glecaprevir 100 mg-pibrentasvir 40 3 tab PO .QHS 12/13/21 01/10/22 History mg tablet (Mavyret) pregabalin 25 mg capsule See Rx Instructions PO BID #28 caps 01/15/22 Rx pregabalin 50 mg capsule 50 mg PO BID #60 caps 01/15/22 Rx Exam Narrative Exam Narrative: General: Patient appears older than stated age, he is unconscious being sedated with propofol and intubated breathing comfortably with assisted breathing. HEENT: Normocephalic, eyes with pupils equal and react to light symmetrically and extraocular movement intact by passive exam. Sclera anicteric. Oropharynx with moist mucosa. Neck: Supple without JVD. Back: Not examined. Lungs: Fair aeration with assisted inspiration and clear vesicular breath sounds without rales or rhonchi. No expiratory wheeze. Heart: Regular rate and rhythm with no murmurs gallops appreciated. Abdomen: Obese contour, soft and nontender to palpation with no palpable hepatosplenomegaly. Bowel sounds positive in all quadrants. Genitalia/rectal: Exam deferred with Holbrook catheter in place. Extremities: Without clubbing, cyanosis or pitting edema. Skin changes over lower extremities with variable hyperpigmentation changes and loss of hair but no skin breakdown or ulcerations. Skin: Hyperpigmentation which is diffuse and without suspicious lesions, appears to be freckling which is confluent. Otherwise normal color, warm and dry. Neuro: Cranial nerves II through XII grossly intact by passive exam, no focalized motor deficits. Patient is sedated and has decreased muscle tone. Psych: Not testable with patient having history of depression. By history no abnormal thought processes manifested. By history remote and recent memory was grossly intact. Results Imaging Imaging Studies: Exam: CT Head Without Contrast Exam date and time: 02/24/2022 10:40 PM Age: 57 years old Clinical indication: Altered mental status/memory loss; Other: AMS TECHNIQUE: Imaging protocol: Computed tomography of the head without contrast. Radiation optimization: All CT scans at this facility use at least one of these dose optimization techniques: automated exposure control; mA and/or kV adjustment per patient size (includes targeted exams where dose is matched to clinical indication); or iterative reconstruction. COMPARISON: No relevant prior studies available. FINDINGS: Brain: Normal volume for age. No acute intracranial hemorrhage. Perez-white matter differentiation is grossly preserved. No edema. No midline shift or herniation. Cerebral ventricles: No ventriculomegaly. Paranasal sinuses: Mucosal thickening of the ethmoid air cells. There is trace mucoid debris within the dependent maxillary sinuses. Otherwise no air-fluid levels. Mastoid air cells: No mastoid effusion. Pharynx: Mucosal thickening within the nasal cavity with low-attenuation material within the nasopharynx. Bones/joints: Persistent metopic suture, normal anatomic variant. No discrete, displaced, or depressed fracture. Soft tissues: No focal soft tissue abnormality. IMPRESSION: No acute intracranial finding. Exam: XR Chest Exam date and time: 02/24/2022 10:10 PM Age: 57 years old Clinical indication: Device placement; Other: Post intubation TECHNIQUE: Imaging protocol: Radiologic exam of the chest. Views: 1 view. COMPARISON: No relevant prior studies available. FINDINGS: Tubes, catheters and devices: Endotracheal tube is in place with distal tip approximately 9.7 cm proximal to the irma, at the level of the clavicular heads. Enteric tube is in place with distal tip and side port subdiaphragmatic, side port approximately 4-5 cm distal to expected location of GE junction. Lungs: Lungs are adequately inflated and symmetric. No focal consolidation.? Asymmetric streaky right perihilar opacity suspected to represent subsegmental atelectasis but nonspecific. Pleural spaces: No visible pleural effusion. No pneumothorax. Heart/Mediastinum: Cardiomediastinal contours within normal limits. Bones/joints: Old healed right midclavicular fracture. No acute osseous finding. IMPRESSION: Endotracheal and enteric tubes are in place as discussed. Labs Result diagrams: 02/24/22 21:40 02/25/22 08:09 Labs: Laboratory Results - last 24 hr 02/24/22 02/24/22 02/24/22 21:40 21:40 21:40 WBC 6.87 RBC 4.02 L Hgb 14.3 Hct 40.2 MCV 100 H MCH 35.6 H MCHC 35.6 RDW 14.6 H Plt Count 135 MPV 9.2 Immature Gran % 0.4 Neutrophils % 45.5 Lymphocytes % 38.7 Monocytes % 8.4 Eosinophils % 6.1 Basophils % 0.9 Nucleated RBC % 0.0 Absolute Neutrophils 3.12 Absolute Lymphocytes 2.66 Absolute Monocytes 0.58 Absolute Eosinophils 0.42 Absolute Basophils 0.06 Sodium 137 Potassium 3.3 L Chloride 99 Carbon Dioxide 30.4 Anion Gap 7.6 BUN 15 Creatinine 1.5 H Est GFR (CKD-EPI 2020) 53.30 Glucose 87 Calcium 9.0 Magnesium Total Bilirubin 0.5 AST 45 H ALT 64 H Alkaline Phosphatase 108 Total Protein 8.7 H Albumin 4.0 TSH 0.84 Urine Color Urine Clarity Urine pH Ur Specific [place] Urine Protein Urine Ketones Urine Blood Urine Nitrite Urine Bilirubin Urine Urobilinogen Ur Leukocyte Esterase Urine Glucose Salicylates 6.9 Urine Opiates Screen Urine Methadone Screen Acetaminophen < 2 Ur Barbiturates Screen Ur Tricyclics Screen Ur Amphetamines Screen U Benzodiazepines Scrn Urine Cocaine Screen Ur THC Screen Ethyl Alcohol 83.6 H COVID-19 Source SARS-CoV-2 (PCR) 02/24/22 02/24/22 02/24/22 21:40 22:55 23:00 WBC RBC Hgb Hct MCV MCH MCHC RDW Plt Count MPV Immature Gran % Neutrophils % Lymphocytes % Monocytes % Eosinophils % Basophils % Nucleated RBC % Absolute Neutrophils Absolute Lymphocytes Absolute Monocytes Absolute Eosinophils Absolute Basophils Sodium Potassium Chloride Carbon Dioxide Anion Gap BUN Creatinine Est GFR (CKD-EPI 2020) Glucose Calcium Magnesium 1.7 L Total Bilirubin AST ALT Alkaline Phosphatase Total Protein Albumin TSH Urine Color Urine Clarity Urine pH Ur Specific [place] Urine Protein Urine Ketones Urine Blood Urine Nitrite Urine Bilirubin Urine Urobilinogen Ur Leukocyte Esterase Urine Glucose Salicylates Urine Opiates Screen Negative Urine Methadone Screen Negative Acetaminophen Ur Barbiturates Screen Negative Ur Tricyclics Screen Negative Ur Amphetamines Screen Negative U Benzodiazepines Scrn Positive A Urine Cocaine Screen Positive A Ur THC Screen Positive A Ethyl Alcohol COVID-19 Source Nasal/Nares SARS-CoV-2 (PCR) Negative 02/24/22 23:00 WBC RBC Hgb Hct MCV MCH MCHC RDW Plt Count MPV Immature Gran % Neutrophils % Lymphocytes % Monocytes % Eosinophils % Basophils % Nucleated RBC % Absolute Neutrophils Absolute Lymphocytes Absolute Monocytes Absolute Eosinophils Absolute Basophils Sodium Potassium Chloride Carbon Dioxide Anion Gap BUN Creatinine Est GFR (CKD-EPI 2020) Glucose Calcium Magnesium Total Bilirubin AST ALT Alkaline Phosphatase Total Protein Albumin TSH Urine Color Yellow Urine Clarity Clear Urine pH 6.5 Ur Specific [place] 1.015 Urine Protein Negative Urine Ketones Negative Urine Blood Negative Urine Nitrite Negative Urine Bilirubin Negative Urine Urobilinogen 0.2 Ur Leukocyte Esterase Negative Urine Glucose Negative Salicylates Urine Opiates Screen Urine Methadone Screen Acetaminophen Ur Barbiturates Screen Ur Tricyclics Screen Ur Amphetamines Screen U Benzodiazepines Scrn Urine Cocaine Screen Ur THC Screen Ethyl Alcohol COVID-19 Source SARS-CoV-2 (PCR) Last Vital Signs Temp 36.7 C 02/24/22 21:44 Pulse 67 02/24/22 23:07 Resp 16 02/24/22 23:07 BP 118/73 02/24/22 23:07 Pulse Ox 100 02/24/22 23:07 PAWSS Evidence of Increased Autonomic Activity (i.e. HR>120, tremor, sweating, agitation, nausea)?: Yes Result: 1
[2022-02-25] VITALS (196 sets, daily range): BP systolic 91–154; BP diastolic 56–113; PULSE 43–76; RESP 12–23; TEMP 36.3–37.4; O2SAT 93–100
[2022-02-25 01:48] LABS: BE 2 mmol/L (-2-3); HCO3 27 mmol/L (22-26); pCO2 49 mmHg (35-45); pH 7.36 (7.35-7.45); pO2 58 mmHg (80-105); sO2 91 % (95-98); tCO2 25 mmol/L (23-27)
[2022-02-25 01:49] LABS: Site Left Radial
[2022-02-25 01:50] LABS: FIO2 21 %
--- NOTE | 2022-02-25 02:13 | NUR.NOTE ---
soft wrist restrants used.Nursing Note:
[2022-02-25] MEDS: MAGNESIUM SULFATE 2 GM/50 ML BAG IVPB (03:11)
[2022-02-25] MEDS: PROPOFOL 1,000 MG/100 ML BTL 15.75 MG IVPB (03:11)
[2022-02-25] MEDS: Normal Saline 1,000 ML 150 ML IV ×4 (03:12→23:30)
[2022-02-25 08:30] LABS: Anion Gap 4.9 mmol/L (3-11); BUN 14 mg/dL (7-18); CO2 29.1 mmol/L (21.0-32.0); CREATININE 1.3 mg/dL (0.70-1.30); Calcium 8.1 mg/dL (8.5-10.1); Chloride 106 mmol/L (98-107); Estimated GFR 63.28 (mL/min/1.73m2); Glucose 95 mg/dL (74-106); Sodium 140 mmol/L (136-145)
[2022-02-25] MEDS: PROPOFOL 1,000 MG/100 ML BTL 18 MG IV ×2 (08:30→14:19)
--- NOTE | 2022-02-25 08:30 | PDOC.CMIN ---
- If Service Date Differs Date of service: 02/25/22 Time of Service: 08:30 Care Management Initial Assess REASON FOR HOSPITALIZATION:: overdose PAST MEDICAL HISTORY/PAST SURGICAL HISTORY:: All Active Problems . Benzodiazepine overdose (Acute). Somnolence (Acute). AMS (altered mental status) (Acute). Lumbar stenosis without neurogenic claudication (Acute). Neuropathic pain (Acute). Dental infection (Acute). Medical History . Alcohol abuse. Anxiety with depression. Chronic back pain. Chronic kidney disease. Cirrhosis, alcoholic. Diverticulosis of colon. GERD (gastroesophageal reflux disease). Hepatitis C. Hypertension. Peripheral neuropathy. Renal cancer. Substance abuse. Surgical History . H/O partial nephrectomy PREVIOUS FUNCTIONAL STATUS/SOCIAL/FAMILY SUPPORTS:: Diane lives in in a local motel. She declined to identify which one. Diane is . She stated to CM that she has no friends or family. CURRENT FUNCTIONAL STATUS:: Diane is intubated and unable to engage in conversation. No one is listed on her HIPAA. CM will follow up with Diane when she has been extubated. ADVANCE DIRECTIVES:: none on file Has patient been provided with info about the portal/API?: Yes Did the patient sign up for the portal?: No CODE STATUS:: Full Code INSURANCE COVERAGE / FINANCIAL ISSUES:: Medicaid CURRENT HOME/COMMUNITY SERVICES/EQUIPMENT:: unknown PRIMARY CARE PHYSICIAN:: Jessica Garcia POTENTIAL DISCHARGE NEEDS:: follow up with PCP, mental health and plan of care PATIENT/FAMILY EDUCATION NEEDS:: Review of discharge instructions, follow up plan, limitations, activity, substance use resources, [facility] [employer] TRANSPORTATION:: via private vehicle with a friend PLAN:: Diane's discharge plan is unclear at this time. She is intubated and not able to converse. CM will follow and assess for ongoing discharge coincerns when Diane has been extubated.
[2022-02-25] MEDS: Enoxaparin 40 MG/0.4 ML SYR SC (12:59)
[2022-02-25] MEDS: PROPOFOL 1,000 MG/100 ML BTL 31.5 MG IV (19:05)
--- NOTE | 2022-02-25 19:34 | PGE_ITS ---
Date of Service Date of service: 02/25/22 Time of Service: 19:34 Assessment and Plan Assessment and plan (1) Benzodiazepine overdose: Start date: 02/24/22 Status: Acute Assessment and plan: This is a 57-year-old transgender female. She was brought to the ED obtunded from alcohol intake all the day of admission plus an overdose of Xanax which she had at home and was taking throughout the day with up to 20 tablets swallowed. She had advancing respiratory suppression and did not have a gag reflex; therefore was intubated in a controlled fashion with sedation using propofol. Plan is respiratory support for at least 24 hours. OG tube did have some pill particles when placed to suction which will continue to be in place. She did not have suicidal ideation by review when he reported to the ED. She does have chronic depression. Precedex initiated. Plan for spont. breathing trial tomorrow and then extubation if possible. (2) Substance abuse: Assessment and plan: Patient had cocaine in his urine drug screen, alcohol level was elevated, known overdose on benzos. Once extubated, plan to load with Phenobarbitol for expected alcohol withdrawal. Long-term she needs assistance with substance abuse and should not be prescribed addictive medications. (3) Anxiety with depression: Assessment and plan: Patient has chronic depression and anxiety and most likely should not be prescribed benzodiazepines in the future. She had a large bottle of different colored Xanax tablets and Xanax is not on her active list. The pill bottle was from last year. Cont fluoxetine (4) Alcohol abuse: Assessment and plan: Patient was drinking alcohol all day and will need to be on CIWA protocol once she clears the Xanax overdose and is extubated. Currently on precedex. She was not suicidal and should seek treatment for substance abuse. (5) Hepatitis C: Assessment and plan: On treatment with Mavyret. (6) Hypertension: Assessment and plan: Hold medications while patient is sedated with propofol which may cause hypotension. Reevaluate once patient awakens. This may be associate with chronic alcohol use and needs reevaluation. (7) Peripheral neuropathy: Assessment and plan: Chronically on Lyrica which will be restarted once patient awakens. Patient should avoid addictive medications. Subjective Subjective Patient reports: afebrile; denies diarrhea Interval history since last seen: Intubated. Developed agitation later in the day and precedex initiated. Exam Narrative Exam Narrative: General: Sedated and intubated. HEENT: Sclera clear. MMM Lungs: Fair aeration with assisted inspiration and clear vesicular breath sounds. Heart: Regular rate and rhythm with no murmurs. Abdomen: Obese contour, soft, + bowel sounds. Genitalia; Holbrook catheter in place. Extremities: Without clubbing, cyanosis or pitting edema. Skin changes over lower extremities with variable hyperpigmentation changes and loss of hair but no skin breakdown or ulcerations. Skin: Hyperpigmentation which is diffuse and without suspicious lesions, appears to be freckling which is confluent. Psych: Not testable while sedated/intubated. Objective Last Vital Signs Temp 37 C 02/25/22 16:05 Pulse 67 02/25/22 18:01 Resp 19 02/25/22 18:01 BP 145/83 H 02/25/22 18:01 Pulse Ox 97 02/25/22 18:01 Laboratory Results - last 24 hr 02/24/22 02/24/22 02/24/22 21:40 21:40 21:40 WBC 6.87 RBC 4.02 L Hgb 14.3 Hct 40.2 MCV 100 H MCH 35.6 H MCHC 35.6 RDW 14.6 H Plt Count 135 MPV 9.2 Immature Gran % 0.4 Neutrophils % 45.5 Lymphocytes % 38.7 Monocytes % 8.4 Eosinophils % 6.1 Basophils % 0.9 Nucleated RBC % 0.0 Absolute Neutrophils 3.12 Absolute Lymphocytes 2.66 Absolute Monocytes 0.58 Absolute Eosinophils 0.42 Absolute Basophils 0.06 ABG Sample Site ABG pH ABG pCO2 ABG pO2 ABG HCO3 ABG Total CO2 ABG O2 Saturation ABG Base Excess Oxygen Liter Flow FiO2 Sodium 137 Potassium 3.3 L Chloride 99 Carbon Dioxide 30.4 Anion Gap 7.6 BUN 15 Creatinine 1.5 H Est GFR (CKD-EPI 2020) 53.30 Glucose 87 Calcium 9.0 Magnesium Total Bilirubin 0.5 AST 45 H ALT 64 H Alkaline Phosphatase 108 Total Protein 8.7 H Albumin 4.0 TSH 0.84 Urine Color Urine Clarity Urine pH Ur Specific [place] Urine Protein Urine Ketones Urine Blood Urine Nitrite Urine Bilirubin Urine Urobilinogen Ur Leukocyte Esterase Urine Glucose Salicylates 6.9 Urine Opiates Screen Urine Methadone Screen Acetaminophen < 2 Ur Barbiturates Screen Ur Tricyclics Screen Ur Amphetamines Screen U Benzodiazepines Scrn Urine Cocaine Screen Ur THC Screen Ethyl Alcohol 83.6 H COVID-19 Source SARS-CoV-2 (PCR) 02/24/22 02/24/22 02/24/22 21:40 22:55 23:00 WBC RBC Hgb Hct MCV MCH MCHC RDW Plt Count MPV Immature Gran % Neutrophils % Lymphocytes % Monocytes % Eosinophils % Basophils % Nucleated RBC % Absolute Neutrophils Absolute Lymphocytes Absolute Monocytes Absolute Eosinophils Absolute Basophils ABG Sample Site ABG pH ABG pCO2 ABG pO2 ABG HCO3 ABG Total CO2 ABG O2 Saturation ABG Base Excess Oxygen Liter Flow FiO2 Sodium Potassium Chloride Carbon Dioxide Anion Gap BUN Creatinine Est GFR (CKD-EPI 2020) Glucose Calcium Magnesium 1.7 L Total Bilirubin AST ALT Alkaline Phosphatase Total Protein Albumin TSH Urine Color Urine Clarity Urine pH Ur Specific [place] Urine Protein Urine Ketones Urine Blood Urine Nitrite Urine Bilirubin Urine Urobilinogen Ur Leukocyte Esterase Urine Glucose Salicylates Urine Opiates Screen Negative Urine Methadone Screen Negative Acetaminophen Ur Barbiturates Screen Negative Ur Tricyclics Screen Negative Ur Amphetamines Screen Negative U Benzodiazepines Scrn Positive A Urine Cocaine Screen Positive A Ur THC Screen Positive A Ethyl Alcohol COVID-19 Source Nasal/Nares SARS-CoV-2 (PCR) Negative 02/24/22 02/25/22 02/25/22 23:00 01:44 02:08 WBC RBC Hgb Hct MCV MCH MCHC RDW Plt Count MPV Immature Gran % Neutrophils % Lymphocytes % Monocytes % Eosinophils % Basophils % Nucleated RBC % Absolute Neutrophils Absolute Lymphocytes Absolute Monocytes Absolute Eosinophils Absolute Basophils ABG Sample Site Left Radial ABG pH 7.36 ABG pCO2 49 H ABG pO2 58 L ABG HCO3 27 H ABG Total CO2 25 ABG O2 Saturation 91 L ABG Base Excess 2 Oxygen Liter Flow VT 450/ RR 14/ P 5 FiO2 21 Sodium Potassium Chloride Carbon Dioxide Anion Gap BUN Creatinine Est GFR (CKD-EPI 2020) Glucose Calcium Magnesium Total Bilirubin AST ALT Alkaline Phosphatase Total Protein Albumin TSH Urine Color Yellow Urine Clarity Clear Urine pH 6.5 Ur Specific [place] 1.015 Urine Protein Negative Urine Ketones Negative Urine Blood Negative Urine Nitrite Negative Urine Bilirubin Negative Urine Urobilinogen 0.2 Ur Leukocyte Esterase Negative Urine Glucose Negative Salicylates 3.0 Urine Opiates Screen Urine Methadone Screen Acetaminophen Ur Barbiturates Screen Ur Tricyclics Screen Ur Amphetamines Screen U Benzodiazepines Scrn Urine Cocaine Screen Ur THC Screen Ethyl Alcohol COVID-19 Source SARS-CoV-2 (PCR) 02/25/22 08:09 WBC RBC Hgb Hct MCV MCH MCHC RDW Plt Count MPV Immature Gran % Neutrophils % Lymphocytes % Monocytes % Eosinophils % Basophils % Nucleated RBC % Absolute Neutrophils Absolute Lymphocytes Absolute Monocytes Absolute Eosinophils Absolute Basophils ABG Sample Site ABG pH ABG pCO2 ABG pO2 ABG HCO3 ABG Total CO2 ABG O2 Saturation ABG Base Excess Oxygen Liter Flow FiO2 Sodium 140 Potassium 4.0 Chloride 106 Carbon Dioxide 29.1 Anion Gap 4.9 BUN 14 Creatinine 1.3 Est GFR (CKD-EPI 2020) 63.28 Glucose 95 Calcium 8.1 L Magnesium Total Bilirubin AST ALT Alkaline Phosphatase Total Protein Albumin TSH Urine Color Urine Clarity Urine pH Ur Specific [place] Urine Protein Urine Ketones Urine Blood Urine Nitrite Urine Bilirubin Urine Urobilinogen Ur Leukocyte Esterase Urine Glucose Salicylates Urine Opiates Screen Urine Methadone Screen Acetaminophen Ur Barbiturates Screen Ur Tricyclics Screen Ur Amphetamines Screen U Benzodiazepines Scrn Urine Cocaine Screen Ur THC Screen Ethyl Alcohol COVID-19 Source SARS-CoV-2 (PCR) PAWSS Evidence of Increased Autonomic Activity (i.e. HR>120, tremor, sweating, agitation, nausea)?: Yes Result: 1
[2022-02-25] MEDS: dexmedeTOMidine IN 0.9 % NACL 400 MCG/100 ML BTL IV (19:37)
[2022-02-25] MEDS: PROPOFOL 1,000 MG/100 ML BTL 22.5 MG IV (22:44)
[2022-02-26] VITALS (75 sets, daily range): BP systolic 111–172; BP diastolic 54–88; PULSE 52–87; RESP 11–25; TEMP 36.5–39.3; O2SAT 94–99
[2022-02-26] MEDS: PROPOFOL 1,000 MG/100 ML BTL 18 MG IV (03:50)
[2022-02-26] MEDS: dexmedeTOMidine IN 0.9 % NACL 400 MCG/100 ML BTL 13.125 MCG IV (05:25)
[2022-02-26 06:23] LABS: Abs Immature Grans 0.02 10^3/uL (0.0-0.06); Absolute Basophil Count 0.03 10^3/uL (0.0-0.2); Absolute Eosinophil Count 0.24 10^3/uL (0.0-0.7); Absolute Lymphocyte Count 1.24 10^3/uL (1.2-3.4); Absolute Neutrophil Count 4.47 10^3/uL (1.2-6.7); Basophils % 0.5; Eosinophils % 3.6; HCT 38.6 % (40.0-50.0); HGB 13.6 g/dL (13.5-17.5); Immature Grans % 0.3; Lymphocytes % 18.8; MCH 35.3 pg (27.0-33.0); MCHC 35.2 % (32.0-36.0); MCV 100 fL (80-95); MPV 9.1 fL (8.0-11.0); Monocytes % 9.1; Neutrophils % 67.7; RBC 3.85 10^6/uL (4.36-5.78); RDW 14.3 % (11.8-14.1); RDW-SD 52.5 fL
[2022-02-26 06:47] LABS: Magnesium 1.6 mg/dL (1.8-2.4)
[2022-02-26 06:51] LABS: ALT 48 U/L (16-63); AST 39 U/L (15-37); Albumin 3.2 g/dL (3.4-5.0); Alkaline Phosphatase 73 U/L (46-116); Anion Gap 7.2 mmol/L (3-11); BUN 14 mg/dL (7-18); CO2 25.8 mmol/L (21.0-32.0); CREATININE 1.2 mg/dL (0.70-1.30); Calcium 8.3 mg/dL (8.5-10.1); Chloride 106 mmol/L (98-107); Estimated GFR 69.66 (mL/min/1.73m2); Glucose 121 mg/dL (74-106); Potassium 3.9 mmol/L (3.5-5.1); Sodium 139 mmol/L (136-145); Total Protein 7.3 g/dL (6.4-8.2)
[2022-02-26] MEDS: Normal Saline 1,000 ML 150 ML IV ×2 (06:57→12:16)
[2022-02-26 07:53] LABS: Platelet Count 77 10^3/uL (130-400)
[2022-02-26 08:07] LABS: BE -1 mmol/L (-2-3); HCO3 23 mmol/L (22-26); pCO2 34 mmHg (35-45); pH 7.45 (7.35-7.45); pO2 73 mmHg (80-105); sO2 96 % (95-98); tCO2 21 mmol/L (23-27)
[2022-02-26 08:08] LABS: FIO2 21 %
--- NOTE | 2022-02-26 08:33 | PDOC.CMPRO ---
- If Service Date Differs Date of service: 02/26/22 Time of Service: 08:33 Care Management Progress Note S/O: Diane was sitting up in bed in the ICU when CM met with her. She was extubated this morning and was still a bit sleepy. Diane seemed irritated when CM asked questions. For example, when CM asked where do you live? She answered Where did you get me from? She stated that she has no friends or family. She started crying several times during the conversation. Diane stated that she wanted to go home and lives in a hotel but would not say which one. Diane informed CM that she has difficulty walking secondary to pain. Per her record, she has severe spinal stenosis. CM asked how she would get home if discharged and Diane didn't have an answer. CM asked about [facility] but Diane did not seem familiar with the agency. Now that she has been extubated, a mental health consult has been ordered as Diane presented following an overdose. She informed CM that she had not slept in months and took the medication to be able to sleep. A: Diane is a 57 year old male who identifies as female, admitted on 02/24/22 following an overdose of benzodiazepines P:Diane's discharge plan is unclear at this time. She is intubated and not able to converse. CM will follow and assess for ongoing discharge concerns when Diane has been extubated.
[2022-02-26] MEDS: Enoxaparin 40 MG/0.4 ML SYR SC (08:43)
--- NOTE | 2022-02-26 10:33 | W.NUTCONSULT ---
Date of service: 02/26/22 Time of Service: 10:34 Nutritional Consult ASSESSMENT: 57-year-old transgender female admitted to ICU with benzodiazepine overdose requiring intubation 02/24/22. PMH: polysubstance abuse, Hep C, HTN. BMI wnl- appears well nourished prior to hospitalization. Estimated Needs: 2199-6228 kcal, 75-90 g protein, 2250 ml fluid NPO day 3, receiving IV fluids. NUTRITIONAL DIAGNOSIS: Inability to meet macronutrient needs due to intubation. INTERVENTION: If unable to wean in next 48 hours, recommend enteral feeding to support macronutrient needs. Recommend Jevity 1.2 @ 65 cc/hour, when IV fluids d/c- flush 250 mg q 6 hours provides total of 1900 kcal, 84 g protein, 2270 ml fluid MONITORING AND EVALUATION: weight, po intake, labs Time Spent in Nutritional Counseling and Treatment: 0
[2022-02-26] MEDS: Acetaminophen 325 MG TAB PO ×2 (12:11→16:15)
--- NOTE | 2022-02-26 14:28 | DSE_ITS ---
Date of service: 02/26/22 Time of Service: 14:33 DS: Diagnosis Discharge Diagnosis (1) Benzodiazepine overdose: Status: Acute Asessment and Plan: Denied suicide attempt. Mental health evaluated after extubation. Planning community services and a home visit the day following d/c. Recommend to further benzodiazapine prescriptions unless in small quantities and closely watch. (2) Substance abuse: Asessment and Plan: Etoh, cocaine and benzos. She has a counsellor appt for 03/05/22. Mental health home visit tomorrow. (3) Anxiety with depression: Asessment and Plan: Cont fluoxetine. (4) Alcohol abuse: Asessment and Plan: Does not desire inpatient treatment. Mental health to follow. 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 (5) Hepatitis C: Asessment and Plan: Has not been compliant with Mavyret. (6) Hypertension: Asessment and Plan: Cont amlodipine and lisinopril. (7) Peripheral neuropathy: Asessment and Plan: Had tried Lyrica previously and felt it wasn't helpful. He does have scripts for Lyrica because he was willing to try it again. However, he didn't pick those scripts up. Discharge Plan Disposition Patient Disposition: HOME Condition: Improving Discharge Details Reason For Visit: Benzodiazepine Overdose with respiratory suppressi Admit Date/Time: 02/24/22 23:17 Admit Provider: David Capps Attending Provider: David Capps Primary Care Provider: Jessica Garcia [facility] Hospital Course: This is a 57-year-old patient who identifies himself as female presenting to the ED after being found in her apartment by staff having been drinking alcohol daily and taking more than 20 tablets of his Xanax 2 mg tablets.? The patient was awake in the ED and did not endorse suicidal ideation but was simply overmedicating with alcohol and Xanax.? She was very talkative earlier in the ED visit but did not have a gag reflex and was intubated and sedated to guard his airway anticipating further sedation with his Xanax dosing.? She did have an OG tube placed and some pill particles were found once she was in ICU with the OG being placed to suction.? The patient did have a low potassium level and had repletion of potassium in the ED.? Magnesium was also being checked and repleted if needed.? The bigger concern would be sedation and less so alcohol withdrawal with benzodiazepine overdose.? As she clears his benzodiazepine she will need to be watched closely for alcohol withdrawal if she remains hospitalized.? She is a full code.? K and Mg were mildly low and were replaced. Diagnosis PCP f/u in 1-2 weeks. Has therapist appt scheduled on 03/05/22 with Kelsie Warren. Home Meds and New Rx's Prescriptions: New folic acid 1 mg Tablet 1 mg PO QAM Qty: 0 0RF multivitamin [Multiple Vitamins] Tablet 1 tab PO QAM Qty: 0 0RF thiamine mononitrate (vit B1) [Vitamin B-1 (mononitrate)] 100 mg Tablet 100 mg PO QAM Qty: 0 0RF Continued bimatoprost [Latisse] 0.03 % Drops With Applicator 1 drp TOPICAL HS bimatoprost [Latisse] 0.03 % drops with applicator 1 applic topical DAILY amlodipine 5 mg tablet 5 mg PO DAILY pregabalin 25 mg capsule See Rx Instructions PO BID Qty: 28 0RF Rx Instructions: Rx #1 25mg BID x 2 wk, then Rx #2 pregabalin 50 mg capsule 50 mg PO BID Qty: 60 5RF Rx Instructions: Rx #2 after titration. atenolol 50 mg tablet 50 mg PO PRN Mavyret 100-40 mg tablet 3 tab PO .QHS fluoxetine [Prozac] 20 mg Capsule 20 mg PO DAILY lisinopril 20 mg tablet 40 mg PO DAILY Label Comments: increased to 40 mg per patient Discharge Instructions Activity:: Activity as Tolerated Equipment/Supplies:: No Equipment Needed Diet:: Resume usual diet Discharge Orders Discharge Orders: Discharge Order (Routine); Ordered 02/26/22 Ordered By: Alexx Garcia DS: Summary Time Spent with Patient providing and/or coordinating discharge services: Greater than 30 minutes Status at Discharge Functional status at discharge: independent ambulation Overall status at discharge: patient is progressing back to baseline Mental Status: mental status grossly normal Speech and Movement: speech and movement normal Mood: dysthymic mood Affect: anxious affect Exam Psych Mental Status: mental status grossly normal Speech and Movement: speech and movement normal Mood: dysthymic mood Affect: anxious affect DS: Data Vitals/I&O Vitals and I&O: Vital Signs Temperature 39.3 C H 02/26/22 12:11 Temperature Source Temporal Artery Scan 02/26/22 09:28 Pulse 69 02/26/22 14:01 Pulse 73 02/26/22 14:01 Respiratory Rate 16 02/26/22 14:01 Respiratory Effort 02/26/22 09:28 Respiratory Depth Normal 02/26/22 09:28 Respiratory Pattern Normal 02/26/22 09:28 Blood Pressure 123/58 L 02/26/22 14:01 Blood Pressure Mean 75 02/26/22 14:01 Blood Pressure Position Supine 02/26/22 08:20 Pulse Oximetry 96 02/26/22 10:01 Respiratory End-tidal CO2 34 02/26/22 08:16 Oxygen Delivery Method Room Air 02/26/22 09:28 Oxygen Flow Rate 0 02/26/22 09:28 Fraction of Inspired Oxygen (FIO2) 21 02/26/22 08:33 Pain Level 5 02/26/22 09:28 Intake & Output 02/25/22 02/26/22 02/26/22 23:59 11:59 23:59 Intake Total 2320.744 / 4169.207 1228.999 / 2026.499 797.5 / 2026.499 Output Total 1850 / 2650 325 / 325 Balance 470.744 / 1519.207 903.999 / 1701.499 797.5 / 1701.499 Intake: IV 2320.744 / 4169.207 1228.999 / 2026.499 797.5 / 2026.499 Output: Gastric Drainage 0 / 150 Oral 0 / 150 Urine 1850 / 2500 325 / 325 Other: Urine Color Pale Yellow Yellow Green Urine Appearance Clear Clear Comment Holbrook in place, patent. FC Voiding Methods Indwelling Catheter Data Completed and Pending Labs on day of discharge: Labs from last 24 hours 02/26/22 02/26/22 02/26/22 08:01 05:37 05:37 WBC 6.60 RBC 3.85 L Hgb 13.6 Hct 38.6 L MCV 100 H MCH 35.3 H MCHC 35.2 RDW 14.3 H Plt Count 77 L MPV 9.1 Immature Gran % 0.3 Neutrophils % 67.7 Lymphocytes % 18.8 Monocytes % 9.1 Eosinophils % 3.6 Basophils % 0.5 Nucleated RBC % 0.0 Absolute Neutrophils 4.47 Absolute Lymphocytes 1.24 Absolute Monocytes 0.60 Absolute Eosinophils 0.24 Absolute Basophils 0.03 ABG Sample Site Unknown ABG pH 7.45 ABG pCO2 34 L ABG pO2 73 L ABG HCO3 23 ABG Total CO2 21 L ABG O2 Saturation 96 ABG Base Excess -1 FiO2 21 Sodium 139 Potassium 3.9 Chloride 106 Carbon Dioxide 25.8 Anion Gap 7.2 BUN 14 Creatinine 1.2 Est GFR (CKD-EPI 2020) 69.66 Glucose 121 H Calcium 8.3 L Magnesium Total Bilirubin 1.0 AST 39 H ALT 48 Alkaline Phosphatase 73 Total Protein 7.3 Albumin 3.2 L 02/26/22 05:37 WBC RBC Hgb Hct MCV MCH MCHC RDW Plt Count MPV Immature Gran % Neutrophils % Lymphocytes % Monocytes % Eosinophils % Basophils % Nucleated RBC % Absolute Neutrophils Absolute Lymphocytes Absolute Monocytes Absolute Eosinophils Absolute Basophils ABG Sample Site ABG pH ABG pCO2 ABG pO2 ABG HCO3 ABG Total CO2 ABG O2 Saturation ABG Base Excess FiO2 Sodium Potassium Chloride Carbon Dioxide Anion Gap BUN Creatinine Est GFR (CKD-EPI 2020) Glucose Calcium Magnesium 1.6 L Total Bilirubin AST ALT Alkaline Phosphatase Total Protein Albumin PFSH All Active Problems Benzodiazepine overdose (Acute) Somnolence (Acute) AMS (altered mental status) (Acute) Lumbar stenosis without neurogenic claudication (Acute) Neuropathic pain (Acute) Dental infection (Acute) Medical History Alcohol abuse Anxiety with depression Chronic back pain Chronic kidney disease Cirrhosis, alcoholic Diverticulosis of colon GERD (gastroesophageal reflux disease) Hepatitis C Hypertension Peripheral neuropathy Renal cancer Substance abuse Surgical History H/O partial nephrectomy Family History Brother Hypertension Heart disease Father Hypertension Heart disease Mother Hypertension Heart disease Neuropathy Social History Smoking/Tobacco Use Status: Current every day Tobacco Type: cigarettes Smoking risk assessment performed?: Yes Alcohol Intake: former Drug use: Rarely Substance use type: marijuana Household members: family Number of Children: 2 current occupation: Retired [employer] Pets and animals: Yes Pets and animals: cat(s) and bird(s) Do you feel safe at home: No (pt states he is homeless does not feel safe living on the street) Do you feel safe in your relationship?: Yes
[2022-02-26 16:31] LABS: Bilirubin Negative (Negative); Blood Moderate (Negative); Clarity Clear (Clear); Glucose Negative (Negative); Ketones Negative (Negative); Leukocyte Esterase Negative (Negative); Nitrite Negative (Negative)
[2022-02-26 16:39] LABS: Bacteria Negative HPF (Negative); C & S Indicated? No; Crystals Negative HPF (Negative); Epithelial Cells Negative HPF (Negative); Mucus Negative (Negative); WBC Negative HPF (0-5)
--- NOTE | 2022-02-26 16:48 | CHAPLAIN ---
Oliverio RN in the ICU called to let me know that Diane would like to talk with someone from the LGTBQ community. I visited with Diane, who is a transgendered female and thought she might be dying if the assistant professor of nursing was visiting her. When I asked if she wanted to speak with an LGTBQ clergy person said, she didn't want to talk with him specialists, which I took to mean a varnish blender. I offered to contact, Rev. Viri Batista, a member of the LGBTQ community. She said she would visit this afternoon. Diane was still a bit groggy from being extubated earlier the morning. She had been drinking on 01/25 and then starting taking all her meds. She told ED staff she took the meds because she had not been able to sleep and needed to. Diane is currently housed in a hotel, and didn't tell care management which hotel.
--- NOTE | 2022-02-26 18:03 | PDOC.CMDIS ---
- If Service Date Differs Date of service: 02/26/22 Time of Service: 18:03 Care Management Discharge Reason for Hospitalization: overdose Discharge Plan: Diane was discharged back to her room at [facility] after safety planning with Chary Foley from [facility]. A referral was made to [facility] and Diane met virtually with Meera Recinos. Meera was able to confirm that her bed is still available and is working with Diane to connect her to needed services in the community. Transportation was coordinated by EVELYN through [facility]. Patient/Family Education Needs: Review of discharge instructions, follow up plan, limitations, activity, substance use resources, Ask Me Three - Disposition Disposition: Community Discharge Transport via of: Other
--- NOTE | 2022-02-27 11:06 | PDOC.MHCN ---
Date of service: 02/26/22 Time of Service: 11:06 PHQ-9 Over the last 2 weeks, how often have you been bothered by any of the following problems? 1. Little interest or pleasure in doing things: not at all 2. Feeling down, depressed, or hopeless: not at all 3. Trouble falling or staying asleep, or sleeping too much: nearly every day 4. Feeling tired or having little energy: not at all 5. Poor appetite or overeating: not at all 6. Feeling bad about yourself - or that you are a failure or have let yourself and your family down: not at all 7. Trouble concentrating on things, such as reading the newspaper or watching television: not at all 8. Moving or speaking so slowly that other people could have noticed? - Or the opposite - being so fidgety or restless that you have been moving around a lot more than usual: not at all 9. Thoughts that you would be better off or of hurting yourself in some way: several days Total score: 4 If you checked off any problems, how difficult have these problems made it for you to do your work, take care of things at home, or get along with other people?: not difficult at all Source: Developed by Drs. Adonis Deleon, Kim Greco, Ray Dillon and colleagues, with an educational richard from [employer]. Suicide Severity Rate CSSRS Have you wished you were or wished you could go to sleep and not wake up?: Yes Have you actually had any thoughts of killing yourself?: No CSSRS3 Have you ever done anything, started to do anything or prepared to do anything to end your life?: No Screening Score Total Score: 2 Screening: Positive Mental Health Emergency Note Release [facility] release signed:: Yes Reason for Visit Client presented to the ED via ambulance after intentionally taking 20 2mg tabs of Xanax and drinking Vodka. Client had not, per his report, taken these in an attempt to by suicide but rather to sleep as he had not slept in a month more than an hour here or there and is experiencing significant pain in his back and feet. Client is followed by [facility] since December of 2021. HIs medications are prescribed through his PCP Jessica Garcia of [facility]. Client reported that he has been taking his medications as prescribed up until this one instance. He reported they work however, is frustrated that he is in so much pain and no one is addressing this for him. He reported that this pain is affecting his sleep, mobility and day to day functioning. Client was just reassigned a new therapist however, missed their appointment last week but has another one on 10.25 @11am. In the last 2 weeks has the pt presented for ES prior to today?: Unknown Client Information Client is: Adult Outpatient Well Housed: No,status: Homeless Non Suicidal Self Injury Current: No History: No Safety Risk/Harm to Self or Others Current Ideation to Harm Self or Others: No Risk: Does risk to harm exist?: No Risk: Low Risk Duty to warn indicated: No Asssessment/Mental Status Appearance: Disheveled Attitude: Cooperative, Guarded and Hostile Behavior: Repetitive movements Speech: Loud and Soft Affect: Flat and Incongurent with mood Mood: Stressed and Depressed Thought process: Goal directed Hallucinations: No Delusions: No Attention: Unremarkable Perception: Not impaired Orientation: Fully orientated Memory: Impaired in: (No memories of when he was under the influence of his medications ) Recent Insight: Fair Judgement: Fair Neurovegetative Symptoms Sleep: Decrease Appetitie: No change Interests: No change Energy: Decrease Libido: Not applicable Substance Use: Other (Using in the last 3 weeks 3-4 drinks a night of liquor. ) Do you use nicotine?: Yes Have you used substances in the last 7 days?: yes, ETOH 3-4 daily for the past 3 weeks. Additional Issues: Assaultive/Threatening Behavior: No Medical Concerns: No Client engaged in active self harm w/weapon: No Threatening to run away: No Child reported abuse/neglect: No Voluntarily presenting for services: Yes Domestic violence is a concern: No Extreme Psychosis or extreme behavior is present: No Impression Client is a 57 year old single Transgender female who is currently homeless and staying at the [facility] in [facility]. They moved to [place] from [place] to help their parents but their parents kicked them out per their report because they don't agree with their lifestyle. Client presented as depressed and guarded with their answers and remorseful about the overdose stating they took it to sleep and denied any intent of wanting to . They denied any memories of their actions while under the effects of the Xanax and ETOH. Their answers to the PHQ-9 seemed to be under-reported based on visual observations like tearfulness, eye avoidance and no concerns for natural supports etc. Client was tearful when speaking about his and children and that he misses them. Client reported that the pain in their feet and back have impacted all aspects of their life including sleeping, mobility and day to day tasks. They are future oriented however, in wanting to become a female and did note professional supports that they can outreach to and are involved with to include Lissett Pederson from [facility] and Jessica Garcia from [facility] as well as a new therapist at [facility]. [facility]:: [facility] and [facility] Plan/Disposition Recommended Disposition: PCP/Office visit. Plan: This clinician will stop by the client's place of housing on 02.28.2022 as a check in. Client will attend their next scheduled therapy appointment. This clinician attempted to connect with Lissett Pederson while in the assessment to set up another appointment, however she did not answer. A voicemail was left. This clinician requested critical care nurse specialist to attempt to see if [facility] could meet with the client to address other resource needs per the client's request. Person reported agreement to plan: Yes Reports/communication Outcome discussed with: ED/Personnel
== END 2022-02-26 17:25 | disposition home or self-care (01) | DRG 918 ==
LOC: ER 02-25 00:02 → ICU 02-25 01:31
PROVIDERS: Family Medicine; Admitting Provider Family Medicine; Emergency Provider Student in an Organized Health Care Education/Training Program; PCP Nurse Practitioner Family; Visit Provider Family Medicine
DX: T42.4X1A Poisoning by benzodiazepines, accidental (unintentional), initial encounter (principal); T51.0X1A Toxic effect of ethanol, accidental (unintentional), initial encounter; R40.0 Somnolence; F10.10 Alcohol abuse, uncomplicated; F19.10 Other psychoactive substance abuse, uncomplicated; F12.90 Cannabis use, unspecified, uncomplicated; F41.8 Other specified anxiety disorders; G89.29 Other chronic pain; M54.9 Dorsalgia, unspecified; N18.9 Chronic kidney disease, unspecified; K70.30 Alcoholic cirrhosis of liver without ascites; K57.30 Diverticulosis of large intestine without perforation or abscess without bleeding; K21.9 Gastro-esophageal reflux disease without esophagitis; B19.20 Unspecified viral hepatitis C without hepatic coma; I10 Essential (primary) hypertension; G62.9 Polyneuropathy, unspecified; Z85.528 Personal history of other malignant neoplasm of kidney; Z90.5 Acquired absence of kidney; F17.210 Nicotine dependence, cigarettes, uncomplicated; F64.9 Gender identity disorder, unspecified; E86.0 Dehydration; E87.6 Hypokalemia
CPT/HCPCS: 31500; 36415; 51702; 80048; 80053; 80307; 82805; 87635; 93005; 96361; 96365; 96366; 96368; 99291; J1650; 36600; 70450; 71045; 80320; 80329; 81003; 81015; 83735; 84443; 85025; 93010; 94002; 94003; 99223; 99233; 99239; J3480

== ENCOUNTER 2022-04-09 15:50 | Outpatient (REF) | payer MEDICAID, SELFPAY ==
[2022-04-09 21:18] LABS: Abs Immature Grans 0.03 10^3/uL (0.0-0.06); Absolute Basophil Count 0.06 10^3/uL (0.0-0.2); Absolute Eosinophil Count 0.12 10^3/uL (0.0-0.7); Absolute Lymphocyte Count 1.79 10^3/uL (1.2-3.4); Absolute Monocyte Count 0.53 10^3/uL (0.1-0.8); Absolute Neutrophil Count 3.96 10^3/uL (1.2-6.7); Basophils % 0.9; Eosinophils % 1.8; HCT 41.1 % (40.0-50.0); HGB 14.2 g/dL (13.5-17.5); Immature Grans % 0.5; Lymphocytes % 27.6; MCH 35.9 pg (27.0-33.0); MCHC 34.5 % (32.0-36.0); MCV 104 fL (80-95); MPV 9.6 fL (8.0-11.0); Monocytes % 8.2; Platelet Count 169 10^3/uL (130-400); RBC 3.95 10^6/uL (4.36-5.78); RDW 13.5 % (11.8-14.1); RDW-SD 52.8 fL; WBC 6.49 10^3/uL (4.4-10.8)
[2022-04-09 21:32] LABS: INR 1.1 (0.9-1.1); PTT Activated 26.4 sec (21.0-27.5); Prothrombin Time 10.6 sec (9.3-11.0)
[2022-04-09 21:57] LABS: ALT 113 U/L (16-63); AST 57 U/L (15-37); Albumin 4.2 g/dL (3.4-5.0); Alkaline Phosphatase 142 U/L (46-116); Anion Gap 5.2 mmol/L (3-11); BUN 19 mg/dL (7-18); Bilirubin, Total 0.4 mg/dL (0.2-1.0); CO2 28.8 mmol/L (21.0-32.0); CREATININE 1.3 mg/dL (0.70-1.30); Calcium 9.1 mg/dL (8.5-10.1); Calculated LDL 99 mg/dL (<100); Chloride 99 mmol/L (98-107); Cholesterol 209 mg/dL (<200); Estimated GFR 63.28 (mL/min/1.73m2); Ferritin 201 ng/mL (26-388); Glucose 103 mg/dL (74-106); HDL Cholesterol 83 mg/dL (40-60); Potassium 4.1 mmol/L (3.5-5.1); Sodium 133 mmol/L (136-145); TSH (W/Ref FT4) 1.14 uIU/mL (0.36-3.74); Triglyceride 137 mg/dL (<150); Vitamin B12 547 pg/mL (193-986)
[2022-04-09 22:17] LABS: Iron 177 ug/dL (65-175); Total Iron Binding Capacity 463 ug/dL (250-450); Transferrin Sat 38 % (20-55)
[2022-04-12 09:13] LABS: Hepatitis C Ab w Rflx HCV PCR Reactive (Negative)
[2022-04-12 10:41] LABS: AFP Tumor Marker 11.3 ng/mL (<8.1)
[2022-04-15 12:07] LABS: HCV RNA Detection Quantitative 43200 IU/mL (Undetected); HCV RNA Qualitative Detected (Undetected)
== END 2022-04-09 15:51 | disposition home or self-care (01) ==
LOC: NCHCN 15:50
PROVIDERS: PCP Nurse Practitioner Family; Visit Provider Nurse Practitioner Family
DX: I10 Essential (primary) hypertension (principal); R53.83 Other fatigue; B19.20 Unspecified viral hepatitis C without hepatic coma; I73.9 Peripheral vascular disease, unspecified; R06.02 Shortness of breath; K70.30 Alcoholic cirrhosis of liver without ascites
CPT/HCPCS: 80053; 80061; 86803; 87522; 82105; 82607; 82728; 83540; 83550; 83735; 84443; 85025; 85610; 85730

== ENCOUNTER 2022-04-20 14:28 | Emergency (ER) | payer MEDICAID, SELFPAY ==
[2022-04-20 14:32] VITALS: BP 187/99; PULSE 86; RESP 18; TEMP 37; O2SAT 99
[2022-04-20] MEDS: Cyclobenzaprine 10 MG TAB PO (15:56)
[2022-04-20] MEDS: Lidocaine 5% Patch 1 PATCH TP (15:57)
--- NOTE | 2022-04-20 16:06 | ED.GENADUL_ITS ---
Discharge Plan Disposition Patient Disposition: Home Condition: Stable Discharge Details Clinical Impression: Cervical muscle strain, Lumbago Primary Care Provider: Jessica Garcia ED Provider: Allyson Brito Home Meds and New Rx's Prescriptions: New cyclobenzaprine 10 mg tablet 10 mg PO TID PRN (Reason: muscle spasm) Qty: 10 0RF No Action bimatoprost [Latisse] 0.03 % Drops With Applicator 1 drp TOPICAL HS bimatoprost [Latisse] 0.03 % drops with applicator 1 applic topical DAILY amlodipine 5 mg tablet 5 mg PO DAILY atenolol 50 mg tablet 50 mg PO PRN Mavyret 100-40 mg tablet 3 tab PO .QHS fluoxetine [Prozac] 20 mg Capsule 20 mg PO DAILY lisinopril 20 mg tablet 40 mg PO DAILY Label Comments: increased to 40 mg per patient folic acid 1 mg Tablet 1 mg PO QAM Qty: 0 0RF multivitamin [Multiple Vitamins] Tablet 1 tab PO QAM Qty: 0 0RF thiamine mononitrate (vit B1) [Vitamin B-1 (mononitrate)] 100 mg Tablet 100 mg PO QAM Qty: 0 0RF Discharge Instructions Instructions: Cervical Strain (ED), Low Back Strain (ED) Additional Instructions: Use lidocaine patch as directed. You may obtain these [id number] and apply 1 a day. Take the muscle relaxer as directed. It may make you sleepy. Alternate ice and heat and try massage. Follow-up with your primary care provider or urgent care for further evaluation. Return to the ER for any loss of bowel or bladder control, numbness tingling to your rectal area, unable to lift legs. Referrals: Jessica Garcia [Primary Care Provider] - 1 week Discharge Data Discharge Date/Time-TO BE ENTERED AT DEPARTURE: 04/20/22 16:21 Medical Decision Making 57-year-old male with past medical history of chronic back pain presents to the ER with acute exacerbation which got worse after sleeping in abnormal bed. Reports increased over the last 5 days. He denies any loss of bowel or bladder control, denies any radiation of pain to his arms or legs. He does have a chronic history of some numbness in his feet. He has been seen by [facility] pain clinic and sees Dr. Branch with neurology. He has been taking Tylenol. No known recent injuries. He is moving without difficulty. Does complain of muscle spasm and paraspinous pain around his neck. Flexeril muscle relaxer and lidocaine patch ordered. Patient has relief after Flexeril and lidocaine patch. Instructed on Tylenol ibuprofen, alternating ice and heat massage. Patient verbalized understanding. Patient given Flexeril to go. This text was generated using [employer] dictation system, please disregard any oddities of phrase or misspellings. Medical Records Medical records reviewed: Yes I reviewed the patient's medical records. Sign Out No HPI General Mode of arrival: ambulatory . Date/Time Provider Initiated Documentation: 04/20/22 14:33 . Limitations to Documentation: no limitations . Information obtained by: patient, RN notes reviewed and old records reviewed . HPI Narrative: 57-year-old male with past medical history of chronic back pain presents to the ER with acute exacerbation which got worse after sleeping in abnormal bed. Reports increased over the last 5 days. He denies any loss of bowel or bladder control, denies any radiation of pain to his arms or legs. He does have a chronic history of some numbness in his feet. He has been seen by [facility] pain clinic and sees Dr. Branch with neurology. He has been taking Tylenol. No known recent injuries. He is moving without difficulty. Does complain of muscle spasm and paraspinous pain around his neck. Related Data Home Medications Medication Instructions Recorded Confirmed fluoxetine 20 mg capsule (Prozac) 20 mg PO DAILY 03/26/21 04/20/22 amlodipine 5 mg tablet 5 mg PO DAILY 05/17/21 04/20/22 bimatoprost 0.03 % drops with 1 drp topical HS 10/23/21 04/20/22 applicator, eyelash base (Latisse) bimatoprost 0.03 % drops with 1 applic topical DAILY 10/30/21 04/20/22 applicator, eyelash base (Latisse) atenolol 50 mg tablet 50 mg PO PRN 12/13/21 03/18/22 glecaprevir 100 mg-pibrentasvir 40 3 tab PO .QHS 12/13/21 04/20/22 mg tablet (Mavyret) folic acid 1 mg tablet 1 mg PO QAM #0 tabs 02/26/22 04/20/22 multivitamin (Multiple Vitamins 1 tab PO QAM #0 tabs 02/26/22 03/18/22 tablet) thiamine mononitrate (vit B1) 100 100 mg PO QAM #0 tabs 02/26/22 04/20/22 mg tablet (Vitamin B-1 (mononitrate)) lisinopril 20 mg tablet 40 mg PO DAILY 03/18/22 03/18/22 cyclobenzaprine 10 mg tablet 10 mg PO TID PRN muscle spasm #10 04/20/22 tabs Previous Rx's Medication Instructions Recorded folic acid 1 mg tablet 1 mg PO QAM #0 tabs 02/26/22 multivitamin (Multiple Vitamins 1 tab PO QAM #0 tabs 02/26/22 tablet) thiamine mononitrate (vit B1) 100 100 mg PO QAM #0 tabs 02/26/22 mg tablet (Vitamin B-1 (mononitrate)) cyclobenzaprine 10 mg tablet 10 mg PO TID PRN muscle spasm #10 04/20/22 tabs Allergies Allergy/AdvReac Type Severity Reaction Status Date / Time grape Allergy Severe Verified 04/20/22 14:35 ibuprofen [From Motrin] Allergy Severe Verified 03/18/22 13:01 aspirin Allergy Intermediate Verified 04/20/22 14:35 Penicillins Allergy Verified 04/20/22 14:35 General Stated Complaint: Nk/Back Pain BRANDY: 4 Review of Systems All systems reviewed & are unremarkable except as noted in HPI and below ENT Ears, Nose, Mouth, and Throat: Reports neck pain Musculoskeletal Musculoskeletal: Reports as per HPI, Reports back pain and Reports neck pain PFSH All Active Problems (Updated 04/20/22 @ 16:11 by Allyson Brito NP) Cervical muscle strain (Acute) Lumbago (Acute) Lumbar stenosis without neurogenic claudication (Acute) Neuropathic pain (Acute) Dental infection (Acute) Medical History Alcohol abuse Anxiety with depression Chronic back pain Chronic kidney disease Cirrhosis, alcoholic Diverticulosis of colon GERD (gastroesophageal reflux disease) Hepatitis C Hypertension Peripheral neuropathy Renal cancer Substance abuse Surgical History H/O partial nephrectomy Family History Brother Hypertension Heart disease Father Hypertension Heart disease Mother Hypertension Heart disease Neuropathy Social History Smoking/Tobacco Use Status: Current every day Tobacco Type: cigarettes Smoking risk assessment performed?: Yes Alcohol Intake: former Drug use: Never Substance use type: does not use Household members: family Number of Children: 2 current occupation: Retired [employer] Pets and animals: Yes Pets and animals: cat(s) and bird(s) Do you feel safe at home: No (pt states he is homeless does not feel safe living on the street) Do you feel safe in your relationship?: Yes Exam Narrative Exam Narrative: Constitutional: Alert and oriented x3. Appears stated age. Normal body habitus. Head: Normocephalic, no trauma. Eyes: Pupils PERRL, Red reflex noted, EOM's intact. Eyelids symmetrical without lesions, discharge, or swelling. Chest: RRR, Normal S1, S2, distal pulses intact. Resp: Lungs clear to auscultation bilaterally, no wheezes, rales, or rhonchi. Abdomen: Soft, non-distended, Normoactive bowel sounds all 4 quads. Musculoskeletal: Normal gait, 5/5 strength to all four extremities. No midline C-spine tenderness crepitus step-off with palpation. Does have paraspinous tenderness to palpation and mild tense muscles. He is able to rotate and extend his neck without difficulty. Skin: No suspicious rashes or lesions. Capillary refill less than 2 sec. Neurologic: Cranial nerves II-XII intact. Alert and oriented x 3. Motor: No deficits noted. Sensory: Intact bilaterally all 4 extremities. Patient has been eating in the room without difficulty, most of all 4 extremities, electrocardiogram technician equal bilaterally, intact dorsal pedal flexion extension. Hematologic/Lymphatic: No ecchymosis, no lymphadenopathy. Course Vital Signs Vital signs: Vital Signs Temperature 37.0 C 04/20/22 14:32 Pulse 86 04/20/22 14:32 Respiratory Rate 18 04/20/22 14:32 Blood Pressure 187/99 H 04/20/22 14:32 Pulse Oximetry 99 04/20/22 14:32 Temperature 37.0 C 04/20/22 14:32 Temperature Source Temporal Artery Scan 04/20/22 14:32 Pulse 86 04/20/22 14:32 Respiratory Rate 18 04/20/22 14:32 Respiratory Effort Non-Labored 04/20/22 14:37 Blood Pressure 187/99 H 04/20/22 14:32 Blood Pressure Position Sitting 04/20/22 14:32 Pulse Oximetry 99 04/20/22 14:32 Oxygen Delivery Method Room Air 04/20/22 14:32 Oxygen Flow Rate 0 04/20/22 14:32
[2022-04-20] MEDS: Cyclobenzaprine 10 MG TAB, 3 TABS/BTL PO (16:21)
== END 2022-04-20 16:21 | disposition home or self-care (01) ==
PROVIDERS: Emergency Provider Registered Nurse Emergency; PCP Nurse Practitioner Family
DX: S16.1XXA Strain of muscle, fascia and tendon at neck level, initial encounter (principal); X58.XXXA Exposure to other specified factors, initial encounter; M54.50 Low back pain, unspecified
CPT/HCPCS: 99283

== ENCOUNTER → 2022-04-23 01:25 | Outpatient (CLI) | payer MEDICAID, SELFPAY ==
--- NOTE | 2022-04-23 | DI.US_ITS ---
Exam(s) US ABDOMEN EXAM: US ABDOMEN CLINICAL HISTORY: HEPATIC CIRRHOSIS, HCC SCREENING TECHNIQUE: Ultrasound abdomen performed using standard protocol. COMPARISON: US US ABDOMEN LIMITED from 11/13/2021 FINDINGS: ABDOMINAL AORTA AND IVC: Visualized portions normal caliber. PANCREAS: Normal where visualized. LIVER: The liver measures 14.8 cm long. The liver has a nodular contour. Hepatopedal flow in the Po rtal Vein. There is a coarsened echotexture to the liver. GALLBLADDER:No evidence of cholelithiasis. No evidence of wall thickening. No pericholecystic fluid i dentified. The echogenic area along the posterior wall of the gallbladder is again seen. This is unc hanged. This may represent stones. BILIARY SYSTEM: Common bile duct measures < 7 mm. No intrahepatic biliary ductal dilation. FLORES'S SIGN: Negative. KIDNEYS: Kidneys are symmetric in size. No evidence of renal calculi. No evidence of hydronephrosis. No renal mass or cyst identified. The patient had a partial nephrectomy on the right. SPLEEN: The spleen is mildly enlarged measuring 13.4 cm. ASCITES: None seen. IMPRESSION: 1. A coarsened echotexture to the liver with a nodular contour suggestive of hepatic cirrhosis. No e vidence of a hepatic mass is seen sonographically. 2. Mild splenomegaly. DATA REPOSITORY:
== END ==
PROVIDERS: PCP Nurse Practitioner Family; Visit Provider Nurse Practitioner Adult Health
DX: R16.1 Splenomegaly, not elsewhere classified (principal)
CPT/HCPCS: 76700

== ENCOUNTER 2022-05-03 14:24 | Emergency (ER) | payer MEDICAID, SELFPAY ==
[2022-05-03 14:28] VITALS: BP 134/84; PULSE 85; RESP 20; TEMP 36.8; O2SAT 97
--- NOTE | 2022-05-03 15:30 | ED.GENADUL_ITS ---
Discharge Plan Disposition Patient Disposition: Home Condition: Stable Discharge Details Clinical Impression: Back pain Primary Care Provider: Jessica Garcia ED Provider: Caitlin Villar Home Meds and New Rx's Prescriptions: New methylprednisolone [Medrol (Jules)] 4 mg tablets,dose pack See Rx Instructions .ROUTE .COMPLEX Qty: 21 0RF Rx Instructions: orally per package directions orphenadrine citrate 100 mg tablet extended release 100 mg PO BID Qty: 10 0RF Continued bimatoprost [Latisse] 0.03 % Drops With Applicator 1 drp TOPICAL HS bimatoprost [Latisse] 0.03 % drops with applicator 1 applic topical DAILY amlodipine 5 mg tablet 5 mg PO DAILY atenolol 50 mg tablet 50 mg PO PRN PRN Mavyret 100-40 mg tablet 3 tab PO .QHS fluoxetine [Prozac] 20 mg Capsule 20 mg PO DAILY lisinopril 20 mg tablet 40 mg PO DAILY Label Comments: increased to 40 mg per patient folic acid 1 mg Tablet 1 mg PO QAM Qty: 0 0RF thiamine mononitrate (vit B1) [Vitamin B-1 (mononitrate)] 100 mg Tablet 100 mg PO QAM Qty: 0 0RF cyclobenzaprine 10 mg tablet 10 mg PO TID PRN (Reason: muscle spasm) Qty: 10 0RF Discharge Instructions Instructions: Back Pain (ED) Additional Instructions: Take Medrol as prescribed Take the Norflex as needed for musculoskeletal pain No heavy lifting or repetitive motion Light stretching as tolerated Recheck on Friday with persistent pain Return earlier should you have new or worsening complaints Referrals: Jessica Garcia [Primary Care Provider] - Discharge Data Discharge Date/Time-TO BE ENTERED AT DEPARTURE: 05/03/22 15:49 Medical Decision Making This 57-year-old male with history of hypertension presents with reports of back pain for the past 2 weeks in the absence of neurological symptoms Take muscle relaxant as prescribed Take prednisone as prescribed No clinical evidence of cauda equina syndrome Return precautions reviewed and patient expressed understanding Recheck in 3 to 5 days with persist discomfort Light stretching reviewed Neurovascularly intact at time of discharge home, ambulatory steady gait Medical Records Medical records reviewed: Yes I reviewed the patient's medical records. Lab Data Lab results reviewed: Yes I reviewed the patient's lab results. HPI General Date/Time Provider Initiated Documentation: 05/03/22 15:12 . HPI Narrative: 57-year-old gentleman with report of musculoskeletal right back pain that started approximately 2 days ago. He states he is been sleeping on a new mattress for the past 3 weeks. He denies any known traumatic injury. He denies any strength or sensation changes to his extremities. He denies any changes in bowel or bladder. He denies any abdominal pain, chest pain, shortness of breath. Denies any calf pain or swelling. He states the pain is exacerbated with movement. Related Data Home Medications Medication Instructions Recorded Confirmed fluoxetine 20 mg capsule (Prozac) 20 mg PO DAILY 03/26/21 05/03/22 amlodipine 5 mg tablet 5 mg PO DAILY 05/17/21 05/03/22 bimatoprost 0.03 % drops with 1 drp topical HS 10/23/21 05/03/22 applicator, eyelash base (Latisse) bimatoprost 0.03 % drops with 1 applic topical DAILY 10/30/21 05/03/22 applicator, eyelash base (Latisse) atenolol 50 mg tablet 50 mg PO PRN PRN 12/13/21 05/03/22 glecaprevir 100 mg-pibrentasvir 40 3 tab PO .QHS 12/13/21 04/20/22 mg tablet (Mavyret) folic acid 1 mg tablet 1 mg PO QAM #0 tabs 02/26/22 05/03/22 thiamine mononitrate (vit B1) 100 100 mg PO QAM #0 tabs 02/26/22 05/03/22 mg tablet (Vitamin B-1 (mononitrate)) lisinopril 20 mg tablet 40 mg PO DAILY 03/18/22 05/03/22 cyclobenzaprine 10 mg tablet 10 mg PO TID PRN muscle spasm #10 04/20/22 05/03/22 tabs methylprednisolone 4 mg tablets in See Rx Instructions PO .COMPLEX 05/03/22 a dose pack (Medrol (Jules)) #21 dose pk orphenadrine citrate 100 mg 100 mg PO BID #10 tabs 05/03/22 tablet,extended release Previous Rx's Medication Instructions Recorded folic acid 1 mg tablet 1 mg PO QAM #0 tabs 02/26/22 thiamine mononitrate (vit B1) 100 100 mg PO QAM #0 tabs 02/26/22 mg tablet (Vitamin B-1 (mononitrate)) cyclobenzaprine 10 mg tablet 10 mg PO TID PRN muscle spasm #10 04/20/22 tabs methylprednisolone 4 mg tablets in See Rx Instructions PO .COMPLEX 05/03/22 a dose pack (Medrol (Jules)) #21 dose pk orphenadrine citrate 100 mg 100 mg PO BID #10 tabs 05/03/22 tablet,extended release Allergies Allergy/AdvReac Type Severity Reaction Status Date / Time grape Allergy Severe Verified 05/03/22 14:30 ibuprofen [From Motrin] Allergy Severe Verified 05/03/22 14:30 aspirin Allergy Intermediate Verified 05/03/22 14:30 Penicillins Allergy Verified 05/03/22 14:30 General Stated Complaint: Nk/Back Pain BRANDY: 4 Review of Systems All systems reviewed & are unremarkable except as noted in HPI and below PFSH All Active Problems (Updated 05/03/22 @ 15:37 by CHAVA Wyatt) Cervical muscle strain (Acute) Lumbago (Acute) Back pain (Acute) Lumbar stenosis without neurogenic claudication (Acute) Neuropathic pain (Acute) Dental infection (Acute) Medical History Alcohol abuse Anxiety with depression Chronic back pain Chronic kidney disease Cirrhosis, alcoholic Diverticulosis of colon GERD (gastroesophageal reflux disease) Hepatitis C Hypertension Peripheral neuropathy Renal cancer Substance abuse Surgical History H/O partial nephrectomy Family History Brother Hypertension Heart disease Father Hypertension Heart disease Mother Hypertension Heart disease Neuropathy Social History Smoking/Tobacco Use Status: Current every day Tobacco Type: cigarettes Smoking risk assessment performed?: Yes Alcohol Intake: former Drug use: Never Substance use type: does not use Household members: family Number of Children: 2 current occupation: Retired [employer] Pets and animals: Yes Pets and animals: cat(s) and bird(s) Do you feel safe at home: No (pt states he is homeless does not feel safe living on the street) Do you feel safe in your relationship?: Yes Exam Const General: cooperative and comfortable HENMT Head: normal to inspection Eyes Sclera: sclerae normal Neck Other: no midline tenderness Resp Effort & Inspection: normal respiratory effort Auscultation: clear to auscultation bilaterally Cardio Rate: regular rate Rhythm: regular rhythm GI Inspection: normal to inspection Back/Spine/Pelvis Back: no CVA tenderness Back/spine/pelvis image: 1. Reproducible tenderness with palpation, no rashes or lesions Skin General skin exam: no rashes or lesions noted Neuro General: patient alert and patient oriented x3 Extrem General: normal to inspection Other: neurovascularly intact Course Vital Signs Vital signs: Vital Signs Temperature 36.8 C 05/03/22 14:28 Pulse 85 05/03/22 14:28 Respiratory Rate 20 05/03/22 14:28 Blood Pressure 134/84 05/03/22 14:28 Pulse Oximetry 97 05/03/22 14:28 Temperature 36.8 C 05/03/22 14:28 Temperature Source Skin 05/03/22 14:28 Pulse 85 05/03/22 14:28 Respiratory Rate 20 05/03/22 14:28 Respiratory Effort 05/03/22 14:32 Blood Pressure 134/84 05/03/22 14:28 Blood Pressure Position Sitting 05/03/22 14:28 Pulse Oximetry 97 05/03/22 14:28 Oxygen Delivery Method Room Air 05/03/22 14:28 Oxygen Flow Rate 0 05/03/22 14:28 Pain Level 7 05/03/22 14:28
== END 2022-05-03 15:49 | disposition home or self-care (01) ==
PROVIDERS: Emergency Provider Physician Assistant; PCP Nurse Practitioner Family
DX: M54.50 Low back pain, unspecified (principal)
CPT/HCPCS: 99283

== ENCOUNTER 2022-07-04 23:48 | Emergency (ER) | payer MEDICAID, SELFPAY ==
--- NOTE | 2022-07-04 23:45 | DI.RAD_ITS ---
Exam(s) XR PORTABLE CHEST AP EXAM: XR PORTABLE CHEST AP CLINICAL HISTORY: overdose, r/o acute disease TECHNIQUE: 2D digital imaging was performed. COMPARISON: CR,XR XR PORTABLE CHEST AP from 02/24/2022 FINDINGS: Exam is extremely limited by patient positioning and lack of pulmonary inflation. The heart size is within normal limits. The aorta appears tortuous. The lungs are grossly clear. Leads overlie the c hest. IMPRESSION: No gross evidence of an acute abnormality. Limited exam. DATA REPOSITORY: RADIATION DOSE DELIVERED:
--- NOTE | 2022-07-04 23:45 | RT.EKG_ITS ---
APPROVED REPORT Exam: Resting ECG Reason for Exam: chest pain Patient Location: E HR:65 bpm ECG Measurements Heart Rate 65 AXIS NH 146 P 74 QRSd 100 QRS 30 QT 401 T 20 QTc 415 Conclusion Sinus rhythm...normal P axis, V-rate 60- 99. Sinus. Normal axis. Peaked T waves anterior leads. No STEMI. I have reviewed and interpreted ECG and agree with software generated interpretation.
[2022-07-04 23:48] VITALS: BP 140/85; PULSE 66; RESP 18; TEMP 37.2; O2SAT 100
[2022-07-04 23:50] VITALS: O2SAT 99
[2022-07-05] VITALS (54 sets, daily range): BP systolic 85–165; BP diastolic 7–94; PULSE 54–91; RESP 10–27; TEMP 37; O2SAT 93–100
--- NOTE | 2022-07-05 00:08 | ED.GENADUL_ITS ---
Discharge Plan Discharge Details Chief Complaint: OD/Poison Primary Care Provider: Jessica Garcia ED Provider: Nieves Tsang Home Meds and New Rx's Prescriptions: No Action bimatoprost [Latisse] 0.03 % Drops With Applicator 1 drp TOPICAL HS bimatoprost [Latisse] 0.03 % drops with applicator 1 applic topical DAILY amlodipine 5 mg tablet 5 mg PO DAILY atenolol 50 mg tablet 50 mg PO PRN PRN Mavyret 100-40 mg tablet 3 tab PO .QHS fluoxetine [Prozac] 20 mg Capsule 20 mg PO DAILY lisinopril 20 mg tablet 40 mg PO DAILY Patient Comments: increased to 40 mg per patient folic acid 1 mg Tablet 1 mg PO QAM Qty: 0 0RF thiamine mononitrate (vit B1) [Vitamin B-1 (mononitrate)] 100 mg Tablet 100 mg PO QAM Qty: 0 0RF cyclobenzaprine 10 mg tablet 10 mg PO TID PRN (Reason: muscle spasm) Qty: 10 0RF methylprednisolone [Medrol (Jules)] 4 mg tablets,dose pack See Rx Instructions .ROUTE .COMPLEX Qty: 21 0RF Rx Instructions: orally per package directions orphenadrine citrate 100 mg tablet extended release 100 mg PO BID Qty: 10 0RF Medical Decision Making 0005 -- 57-year-old male who identifies as female with a history of hypertension, hepatitis C, alcohol abuse, chronic kidney disease, GERD, peripheral neuropathy, renal cancer with history of partial nephrectomy, anxiety and depression who presents as an overdose of pregabalin. Patient states she did not do it to harm herself but did it to dull the pain . Patient drowsy on arrival and laying on her side on stretcher. Her vitals are within normal limits. Oxygen saturation mid 90s on room air, will place on 2 L nasal cannula. She is drowsy but arousable and able to answer questions. There is alcohol on breath. Moving all extremities otherwise. No evidence of obvious trauma. Will obtain screening labs including tox work-up with salicylate, acetaminophen, UDS, alcohol and portable chest x-ray. Will give IV fluids and call poison control. 0100 --nursing discussed with poison control who recommended 4-hour observation for Lyrica which can cause CHEST PAIN COORDINATOR depression and hypotension. If patient remains hemodynamically stable without worsening condition 4 hours postingestion, can be medically cleared. Labs reviewed. Normal white blood cell count. Creatinine 1.4. Mild elevation of liver enzymes. Troponin negative. Urinalysis negative. Negative salicylate and acetaminophen which is essentially 3 hours postingestion. UDS positive for THC. Alcohol level 122.7 which based on clearance will be near 0 at 5 AM. We will continue to monitor and medically clear at 5 AM for evaluation with mental health. 0500 --patient has remained hemodynamically stable and no acute complaints. Patient is more awake and alert. Patient evaluated by mental health and patient continues to deny suicidal ideation. Patient endorses to mental health that she cannot return home as her parents have just found out that she is transgender and patient does not feel safe at home. Patient has been here for the past year after her in [place] and has no other friends or family here. Mental health is requesting if we can hold patient here until day team can attempt to obtain a care bed for patient for depression, substance use and respite care. 0730 --Case endorsed to Dr. Martel to continue to follow-up with mental health regarding disposition. Medical Records Medical records reviewed: Yes I reviewed the patient's medical records. Imaging Data Radiologic Study: Radiologist's impression: XR Chest Exam date and time: 07/04/2022 11:46 PM Age: 57 years old Clinical indication: Other: Overdose, R/O acute disease TECHNIQUE: Imaging protocol: Radiologic exam of the chest. Views: 1 view. COMPARISON: XR PORTABLE CHEST AP 02/24/2022 10:10 PM FINDINGS: Limited due to rotation Lungs: No consolidation. Pleural spaces: No pleural effusion. No pneumothorax. Heart/Mediastinum: No cardiomegaly. Bones/joints: Unremarkable. IMPRESSION: No acute findings. Lab Data Lab results reviewed: Yes I reviewed the patient's lab results. Labs: Laboratory Tests Range/Units 07/05/22 07/05/22 07/05/22 00:00 00:00 00:00 WBC (4.4-10.8) 10^3/uL 7.46 RBC (4.36-5.78) 10^6/uL 3.99 L Hgb (13.5-17.5) g/dL 14.4 Hct (40.0-50.0) % 42.3 MCV (80-95) fL 106 H MCH (27.0-33.0) pg 36.1 H MCHC (32.0-36.0) % 34.0 RDW (11.8-14.1) % 13.2 Plt Count (130-400) 10^3/uL 149 MPV (8.0-11.0) fL 9.5 Immature Gran % 0.5 Neutrophils % 49.8 Lymphocytes % 37.5 Monocytes % 8.0 Eosinophils % 3.5 Basophils % 0.7 Nucleated RBC % (0.0-0.3) % 0.0 Absolute Neutrophils (1.2-6.7) 10^3/uL 3.71 Absolute Lymphocytes (1.2-3.4) 10^3/uL 2.80 Absolute Monocytes (0.1-0.8) 10^3/uL 0.60 Absolute Eosinophils (0.0-0.7) 10^3/uL 0.26 Absolute Basophils (0.0-0.2) 10^3/uL 0.05 Macrocytosis 3+ Sodium (136-145) mmol/L 135 L Potassium (3.5-5.1) mmol/L 3.9 Chloride (98-107) mmol/L 100 Carbon Dioxide (21.0-32.0) mmol/L 28.3 Anion Gap (3-11) mmol/L 6.7 BUN (7-18) mg/dL 14 Creatinine (0.70-1.30) mg/dL 1.4 H Est GFR (CKD-EPI 2020) (mL/min/1.73m2) 57.90 Glucose (74-106) mg/dL 101 Calcium (8.5-10.1) mg/dL 8.9 Magnesium (1.8-2.4) mg/dL 1.9 Total Bilirubin (0.2-1.0) mg/dL 0.4 AST (15-37) U/L 61 H ALT (16-63) U/L 90 H Alkaline Phosphatase (46-116) U/L 101 Troponin I (<or=60) ng/L < 50 Total Protein (6.4-8.2) g/dL 8.5 H Albumin (3.4-5.0) g/dL 3.9 Urine Color (Yellow) Urine Clarity (Clear) Urine pH (5-8) Ur Specific [place] (1.005-1.025) Urine Protein (Negative) mg/dL Urine Ketones (Negative) mg/dL Urine Blood (Negative) Urine Nitrite (Negative) Urine Bilirubin (Negative) Urine Urobilinogen (Up to 0.2) mg/dL Ur Leukocyte Esterase (Negative) Urine Glucose (Negative) mg/dL Salicylates (<2.8) mg/dL Urine Opiates Screen (Negative) Urine Methadone Screen (Negative) Acetaminophen (10-30) ug/mL Ur Barbiturates Screen (Negative) Ur Tricyclics Screen (Negative) Ur Amphetamines Screen (Negative) U Benzodiazepines Scrn (Negative) Urine Cocaine Screen (Negative) Ur THC Screen (Negative) Ethyl Alcohol (<10) mg/dL 122.7 H Range/Units 07/05/22 07/05/22 07/05/22 00:00 00:01 00:25 WBC (4.4-10.8) 10^3/uL RBC (4.36-5.78) 10^6/uL Hgb (13.5-17.5) g/dL Hct (40.0-50.0) % MCV (80-95) fL MCH (27.0-33.0) pg MCHC (32.0-36.0) % RDW (11.8-14.1) % Plt Count (130-400) 10^3/uL MPV (8.0-11.0) fL Immature Gran % Neutrophils % Lymphocytes % Monocytes % Eosinophils % Basophils % Nucleated RBC % (0.0-0.3) % Absolute Neutrophils (1.2-6.7) 10^3/uL Absolute Lymphocytes (1.2-3.4) 10^3/uL Absolute Monocytes (0.1-0.8) 10^3/uL Absolute Eosinophils (0.0-0.7) 10^3/uL Absolute Basophils (0.0-0.2) 10^3/uL Macrocytosis Sodium (136-145) mmol/L Potassium (3.5-5.1) mmol/L Chloride (98-107) mmol/L Carbon Dioxide (21.0-32.0) mmol/L Anion Gap (3-11) mmol/L BUN (7-18) mg/dL Creatinine (0.70-1.30) mg/dL Est GFR (CKD-EPI 2021) (mL/min/1.73m2) Glucose (74-106) mg/dL Calcium (8.5-10.1) mg/dL Magnesium (1.8-2.4) mg/dL Total Bilirubin (0.2-1.0) mg/dL AST (15-37) U/L ALT (16-63) U/L Alkaline Phosphatase (46-116) U/L Troponin I (<or=60) ng/L Total Protein (6.4-8.2) g/dL Albumin (3.4-5.0) g/dL Urine Color (Yellow) Yellow Urine Clarity (Clear) Clear Urine pH (5-8) 6.5 Ur Specific [place] (1.005-1.025) 1.010 Urine Protein (Negative) mg/dL Negative Urine Ketones (Negative) mg/dL Negative Urine Blood (Negative) Negative Urine Nitrite (Negative) Negative Urine Bilirubin (Negative) Negative Urine Urobilinogen (Up to 0.2) mg/dL 0.2 Ur Leukocyte Esterase (Negative) Negative Urine Glucose (Negative) mg/dL Negative Salicylates (<2.8) mg/dL < 2.8 Urine Opiates Screen (Negative) Urine Methadone Screen (Negative) Acetaminophen (10-30) ug/mL < 2 Ur Barbiturates Screen (Negative) Ur Tricyclics Screen (Negative) Ur Amphetamines Screen (Negative) U Benzodiazepines Scrn (Negative) Urine Cocaine Screen (Negative) Ur THC Screen (Negative) Ethyl Alcohol (<10) mg/dL Range/Units 07/05/22 07/05/22 00:25 04:47 WBC (4.4-10.8) 10^3/uL RBC (4.36-5.78) 10^6/uL Hgb (13.5-17.5) g/dL Hct (40.0-50.0) % MCV (80-95) fL MCH (27.0-33.0) pg MCHC (32.0-36.0) % RDW (11.8-14.1) % Plt Count (130-400) 10^3/uL MPV (8.0-11.0) fL Immature Gran % Neutrophils % Lymphocytes % Monocytes % Eosinophils % Basophils % Nucleated RBC % (0.0-0.3) % Absolute Neutrophils (1.2-6.7) 10^3/uL Absolute Lymphocytes (1.2-3.4) 10^3/uL Absolute Monocytes (0.1-0.8) 10^3/uL Absolute Eosinophils (0.0-0.7) 10^3/uL Absolute Basophils (0.0-0.2) 10^3/uL Macrocytosis Sodium (136-145) mmol/L Potassium (3.5-5.1) mmol/L Chloride (98-107) mmol/L Carbon Dioxide (21.0-32.0) mmol/L Anion Gap (3-11) mmol/L BUN (7-18) mg/dL Creatinine (0.70-1.30) mg/dL Est GFR (CKD-EPI 2020) (mL/min/1.73m2) Glucose (74-106) mg/dL Calcium (8.5-10.1) mg/dL Magnesium (1.8-2.4) mg/dL Total Bilirubin (0.2-1.0) mg/dL AST (15-37) U/L ALT (16-63) U/L Alkaline Phosphatase (46-116) U/L Troponin I (<or=60) ng/L Total Protein (6.4-8.2) g/dL Albumin (3.4-5.0) g/dL Urine Color (Yellow) Urine Clarity (Clear) Urine pH (5-8) Ur Specific [place] (1.005-1.025) Urine Protein (Negative) mg/dL Urine Ketones (Negative) mg/dL Urine Blood (Negative) Urine Nitrite (Negative) Urine Bilirubin (Negative) Urine Urobilinogen (Up to 0.2) mg/dL Ur Leukocyte Esterase (Negative) Urine Glucose (Negative) mg/dL Salicylates (<2.8) mg/dL Urine Opiates Screen (Negative) Negative Urine Methadone Screen (Negative) Negative Acetaminophen (10-30) ug/mL Cancelled Ur Barbiturates Screen (Negative) Negative Ur Tricyclics Screen (Negative) Negative Ur Amphetamines Screen (Negative) Negative U Benzodiazepines Scrn (Negative) Negative Urine Cocaine Screen (Negative) Negative Ur THC Screen (Negative) Positive A Ethyl Alcohol (<10) mg/dL ECG Data Attestation: I personally reviewed and interpreted this ECG (s) as follows: Interpretation: Rate of 111, sinus, no STEMI. HPI General Mode of arrival: EMS . Date/Time Provider Initiated Documentation: 07/04/22 23:59 . Limitations to Documentation: no limitations . Information obtained by: patient . HPI Narrative: Patient is a 57-year-old male who identifies as female who presents from home for reported overdose. Patient is able to state that she thinks she took 20 tabs of pregabalin 25 mg at 9 PM this evening to try to dull the pain . Patient states she has chronic feet pain for which she has taken pregabalin in the past. Patient states is an old prescription from 1 year ago and has not taken it regularly. Patient states she also drinks about 5-10 liquor drinks daily and states she drank about 5-10 today. She denies any other drug use or any overdose of other prescriptions. EMS reported vitals within normal limits. Patient states she did not do this to harm herself and denies any history of suicide attempts. EMS did report that patient has never dressed as female and did today for the first time with her family. Patient has no [place] but has been staying here recently. Related Data Home Medications Medication Instructions Recorded Confirmed fluoxetine 20 mg capsule (Prozac) 20 mg PO DAILY 03/26/21 05/03/22 amlodipine 5 mg tablet 5 mg PO DAILY 05/17/21 05/03/22 bimatoprost 0.03 % drops with 1 drp topical HS 10/23/21 05/03/22 applicator, eyelash base (Latisse) bimatoprost 0.03 % drops with 1 applic topical DAILY 10/30/21 05/03/22 applicator, eyelash base (Latisse) atenolol 50 mg tablet 50 mg PO PRN PRN 12/13/21 05/03/22 glecaprevir 100 mg-pibrentasvir 40 3 tab PO .QHS 12/13/21 04/20/22 mg tablet (Mavyret) folic acid 1 mg tablet 1 mg PO QAM #0 tabs 02/26/22 05/03/22 thiamine mononitrate (vit B1) 100 100 mg PO QAM #0 tabs 02/26/22 05/03/22 mg tablet (Vitamin B-1 (mononitrate)) lisinopril 20 mg tablet 40 mg PO DAILY 03/18/22 05/03/22 cyclobenzaprine 10 mg tablet 10 mg PO TID PRN muscle spasm #10 04/20/22 05/03/22 tabs methylprednisolone 4 mg tablets in See Rx Instructions PO .COMPLEX 05/03/22 a dose pack (Medrol (Jules)) #21 dose pk orphenadrine citrate 100 mg 100 mg PO BID #10 tabs 05/03/22 tablet,extended release Previous Rx's Medication Instructions Recorded folic acid 1 mg tablet 1 mg PO QAM #0 tabs 02/26/22 thiamine mononitrate (vit B1) 100 100 mg PO QAM #0 tabs 02/26/22 mg tablet (Vitamin B-1 (mononitrate)) cyclobenzaprine 10 mg tablet 10 mg PO TID PRN muscle spasm #10 04/20/22 tabs methylprednisolone 4 mg tablets in See Rx Instructions PO .COMPLEX 05/03/22 a dose pack (Medrol (Jules)) #21 dose pk orphenadrine citrate 100 mg 100 mg PO BID #10 tabs 05/03/22 tablet,extended release Allergies Allergy/AdvReac Type Severity Reaction Status Date / Time grape Allergy Severe Verified 07/04/22 23:56 ibuprofen [From Motrin] Allergy Severe Verified 07/04/22 23:56 aspirin Allergy Intermediate Verified 07/04/22 23:56 Penicillins Allergy Verified 07/04/22 23:56 General Stated Complaint: OD/Poison BRANDY: 2 Review of Systems All systems reviewed & are unremarkable except as noted in HPI and below Constitutional Constitutional: Reports as per HPI, Denies chills and Denies fever(s) Eyes Eyes: Denies blurry vision ENT Ears, Nose, Mouth, and Throat: Denies dizziness, Denies sore throat and Denies throat swelling Cardiovascular Cardiovascular: Denies chest pain and Denies dyspnea Respiratory Respiratory: Denies cough and Denies dyspnea Gastrointestinal Gastrointestinal: Denies abdominal pain, Denies diarrhea and Denies vomiting Genitourinary Genitourinary: Denies hematuria and Denies dysuria Musculoskeletal Musculoskeletal: Denies back pain and Denies numbness Integumentary/Breasts Skin/Breast: Denies lesions and Denies rash Neurologic Neurologic: Denies dizziness, Denies localized weakness and Denies numbness Allergic/Immunologic Allergic/Immunologic: Denies throat swelling PFSH All Active Problems (Updated 06/03/22 @ 00:04 by STEPHANY JAMA) Lumbar stenosis without neurogenic claudication (Acute) Neuropathic pain (Acute) Dental infection (Acute) Medical History Alcohol abuse Anxiety with depression Chronic back pain Chronic kidney disease Cirrhosis, alcoholic Diverticulosis of colon GERD (gastroesophageal reflux disease) Hepatitis C Hypertension Peripheral neuropathy Renal cancer Substance abuse Surgical History H/O partial nephrectomy Family History Brother Hypertension Heart disease Father Hypertension Heart disease Mother Hypertension Heart disease Neuropathy Social History Smoking/Tobacco Use Status: Current every day Tobacco Type: cigarettes Smoking risk assessment performed?: Yes Alcohol Intake: former Drug use: Never Substance use type: does not use Household members: family Number of Children: 2 current occupation: Retired pryor Pets and animals: Yes Pets and animals: cat(s) and bird(s) Do you feel safe at home: No (pt states he is homeless does not feel safe living on the street) Do you feel safe in your relationship?: Yes Exam Const General: other (Drowsy but arousable and able to answer questions.) [facility] Head: normal to inspection Ears: hearing grossly normal bilaterally and external ears normal Face and sinus: normal facial exam Mouth: oral mucosae normal Teeth and gingiva: edentulous Eyes General: appearance normal, both eyes and all related structures Pupils: PERRL EOM: EOM intact bilaterally Neck Neck: normal visual inspection and No submandibular swelling Lymphatic: no lymphadenopathy noted Chest Chest: normal inspection of the chest and no tenderness Resp Effort & Inspection: normal respiratory effort and able to speak in complete sentences Auscultation: clear to auscultation bilaterally Cardio Rate: regular rate Rhythm: regular rhythm GI Inspection: normal to inspection Palpation: soft, not firm, not rigid and nontender Auscultation: hypoactive bowel sounds Male General Exam: Yes normal external exam Back/Spine/Pelvis Thoracic/Lumbar Spine: thoracic and lumbar spine normal to inspection Pelvis: no pain with anterior-posterior compression Skin General skin exam: no rashes or lesions noted Neuro General: patient alert, patient awake and patient oriented x3 Cognition: normal cognition Speech: speech normal Motor: muscle tone normal throughout Sensory Exam: no sensory deficits noted Extrem General: normal to inspection, full ROM, capillary refill normal, no calf tenderness bilaterally and no edema Psych Appearance: grossly normal Mental Status: mental status grossly normal Speech and Movement: speech and movement normal Affect: normal affect Course Vital Signs Vital signs: Vital Signs Temperature 99 F 07/04/22 23:48 Pulse 66 07/04/22 23:48 Respiratory Rate 18 07/04/22 23:48 Blood Pressure 140/85 07/04/22 23:48 Pulse Oximetry 100 07/04/22 23:48 Temperature 99 F 07/04/22 23:48 Temperature Source Temporal Artery Scan 07/04/22 23:48 Pulse 66 07/04/22 23:48 Respiratory Rate 18 07/04/22 23:48 Respiratory Effort Normal 07/04/22 23:48 Blood Pressure 140/85 07/04/22 23:48 Blood Pressure Position Supine 07/04/22 23:48 Pulse Oximetry 100 07/04/22 23:48 Oxygen Delivery Method Nasal Cannula 07/04/22 23:48 Oxygen Flow Rate 2 07/04/22 23:48
[2022-07-05] MEDS: Normal Saline 1,000 ML 1000 ML IV ×2 (00:10→04:26)
[2022-07-05 00:16] LABS: Abs Immature Grans 0.04 10^3/uL (0.0-0.06); Absolute Basophil Count 0.05 10^3/uL (0.0-0.2); Absolute Eosinophil Count 0.26 10^3/uL (0.0-0.7); Absolute Neutrophil Count 3.71 10^3/uL (1.2-6.7); Basophils % 0.7; Eosinophils % 3.5; HCT 42.3 % (40.0-50.0); HGB 14.4 g/dL (13.5-17.5); Immature Grans % 0.5; Lymphocytes % 37.5; MCH 36.1 pg (27.0-33.0); MCV 106 fL (80-95); MPV 9.5 fL (8.0-11.0); Neutrophils % 49.8; RBC 3.99 10^6/uL (4.36-5.78); RDW 13.2 % (11.8-14.1); RDW-SD 51.8 fL; WBC 7.46 10^3/uL (4.4-10.8)
--- NOTE | 2022-07-05 00:22 | DI.VRAD_ITS ---
PROCEDURE INFORMATION: Exam: XR Chest Exam date and time: 07/04/2022 11:46 PM Age: 57 years old Clinical indication: Other: Overdose, R/O acute disease TECHNIQUE: Imaging protocol: Radiologic exam of the chest. Views: 1 view. COMPARISON: XR PORTABLE CHEST AP 02/24/2022 10:10 PM FINDINGS: Limited due to rotation Lungs: No consolidation. Pleural spaces: No pleural effusion. No pneumothorax. Heart/Mediastinum: No cardiomegaly. Bones/joints: Unremarkable. IMPRESSION: No acute findings. Dictated and Authenticated by: Reyes Prakash MD. Ordering:BALJIT Pickett MD
[2022-07-05 00:27] LABS: ETHANOL BLOOD 122.7 mg/dL (<10); Macrocytosis 3+; Platelet Count 149 10^3/uL (130-400)
[2022-07-05 00:32] LABS: ALT 90 U/L (16-63); AST 61 U/L (15-37); Albumin 3.9 g/dL (3.4-5.0); Alkaline Phosphatase 101 U/L (46-116); Anion Gap 6.7 mmol/L (3-11); BUN 14 mg/dL (7-18); Bilirubin, Total 0.4 mg/dL (0.2-1.0); CO2 28.3 mmol/L (21.0-32.0); CREATININE 1.4 mg/dL (0.70-1.30); Calcium 8.9 mg/dL (8.5-10.1); Chloride 100 mmol/L (98-107); Glucose 101 mg/dL (74-106); Magnesium 1.9 mg/dL (1.8-2.4); Potassium 3.9 mmol/L (3.5-5.1); Sodium 135 mmol/L (136-145); Total Protein 8.5 g/dL (6.4-8.2); Troponin I < 50 ng/L (<or=60)
[2022-07-05 00:34] LABS: Acetaminophen < 2 ug/mL (10-30)
[2022-07-05 00:36] LABS: Salicylate < 2.8 mg/dL (<2.8)
[2022-07-05 00:37] LABS: Bilirubin Negative (Negative); Blood Negative (Negative); Clarity Clear (Clear); Glucose Negative (Negative); Ketones Negative (Negative); Leukocyte Esterase Negative (Negative); Nitrite Negative (Negative); Urobilinogen 0.2 mg/dL (Up to 0.2); pH 6.5 (5-8)
[2022-07-05 00:44] LABS: *AMPHETAMINES SCREEN URINE Negative (Negative); *BARBITURATES SCREEN URINE Negative (Negative); *BENZODIAZEPINES SCREEN URINE Negative (Negative); Cannabinoids THC Positive (Negative); Cocaine Screen,Urine Negative (Negative); METHADONE URINE SCREEN Negative (Negative); OPIATES URINE SCREEN Negative (Negative); Tricyclic Antidepressants Negative (Negative)
--- NOTE | 2022-07-05 01:04 | NUR.NOTE ---
@0104[facility] Poison control called and updated on pt status. Spoke with DEENA Baltazar. Pt needs to be monitored for 4 hours before she can be medically cleared. Observing for TIRE MOLD ENGRAVER depression, low BP. MD Sharan made aware.
[2022-07-05] MEDS: ACETAMINOPHEN 1,000 MG/100 ML BTL 400 MG IVPB (02:10)
--- NOTE | 2022-07-05 08:23 | NUR.NOTE ---
Nursing Note: patient states they took all the lyrica because they are in pain and no one will help them. Asked patient if they ever just took the Lyrica as prescribed for pain and they stated it does not help.
[2022-07-05] MEDS: MORPHine 4 MG/ML SYR 2 MG IVP (09:26)
--- NOTE | 2022-07-05 09:33 | CMSP_ITS ---
- If Service Date Differs Date of service: 07/05/22 Time of Service: 09:33 Care Management Safety Plan Status: Interim - Reason for Wait Reason for Wait: Medical Clearance Chief Complaint: Per Report: Diane Frances) is a 57-year-old male who identifies as female with a history of hypertension, hepatitis C, alcohol abuse, chronic kidney disease, GERD, peripheral neuropathy, renal cancer with history of partial nephrectomy, anxiety and depression who presents as an overdose of pregabalin. Patient states she did not do it to harm herself but did it to dull the pain . CM will respond to ED to assess patient after patient has been medically cleared and assessed by screener. If screener deems patient meets criteria for psychiatric stabilization CM will facilitate interdepartmental huddle with [facility] screener for safety planning considerations and meet with patient to review [facility] policy and safety plan, establish individual wishes for treatment and maintain patient rights. In the interim; please note safety plan below to guide patient care while awaiting further assessment in the ED. SAFETY PLAN: 1. Will remain on suicide precautions and in paper clothes. 2. Will remain in room under direct supervision of one-on-one staff at all times provided by VIDHYA, RETAIL LOAN ORIGINATOR ASSISTANT transformation architect. 3. May have paper cups, plates, finger foods as well as a cardboard spoon with which to eat meals. 4. Follow [facility] Management of the Admitted Behavioral Health Patient policy. 5. Personal care: Comfort bath system only at this time. 6. Bathroom privileges: with escort in ED. Available in room without limitation on Med/Surg. 6. No personal belongings at this time; per RN discretion. 7. No visitors at this time. 8. Phone contact limited to legal contact at this time. 9. Activities: Music tablet per RN discretion. Med/Surg: Television and remote available at RN discretion. 10. Due to VOLUNTARY status, if patient wishes to leave [facility], staff will contact [facility] Crisis Screener ([phone]) and On-Call Personnel Records Clerk ([phone]) as soon as possible. In the event of elopement, notify [facility] Police ([phone]). If deemed appropriate for inpatient psychiatric care, safety plan will be established with patient, and care team, to adhere to patient goals, identify restrictions based on behavioral status, address nutrition, and determine allow ed personal belongings, tools for hygiene and personal care. As well plan will determine level of activity including ambulation, level of supervision, visitors, and determine privileges based on level of acuity, behaviors and level of engagement by patient.
[2022-07-05] MEDS: Lisinopril 20 MG TAB PO (12:16)
[2022-07-05] MEDS: Spironolactone 50 MG TAB 100 MG PO (12:17)
--- NOTE | 2022-07-05 12:24 | W.EDPROG ---
Date of service: 07/05/22 Time of Service: 12:27 Medical Decision Making Patient was signed out to me by my colleague Dr. Nieves Tsang. Please refer to HPI, physical exam, assessment and plan. Sign Out Sign Out Data: Sign Out Comment: Medically cleared. Depression and alcohol use. Not suicidal. Transgender and does not feel comfortable returning home. Follow-up with mental health this morning regarding disposition/possible placement to care bed. Last updated by Nieves Tsang DO at 07/05/22 07:26 Discharge Plan Disposition Patient Disposition: Home Discharge Details Chief Complaint: OD/Poison Clinical Impression: Suicide attempt Primary Care Provider: Jessica Garcia ED Provider: Rohan Martel Home Meds and New Rx's Prescriptions: No Action bimatoprost [Latisse] 0.03 % Drops With Applicator 1 drp TOPICAL HS amlodipine 5 mg tablet 5 mg PO DAILY Patient Comments: patient states they stopped taking it. atenolol 50 mg tablet 50 mg PO PRN PRN Mavyret 100-40 mg tablet 3 tab PO .QHS fluoxetine [Prozac] 20 mg Capsule 20 mg PO DAILY Patient Comments: patient states does not take anymore. lisinopril 20 mg tablet 20 mg PO DAILY folic acid 1 mg Tablet 1 mg PO QAM Qty: 0 0RF thiamine mononitrate (vit B1) [Vitamin B-1 (mononitrate)] 100 mg Tablet 100 mg PO QAM Qty: 0 0RF cyclobenzaprine 10 mg tablet 10 mg PO TID PRN (Reason: muscle spasm) Qty: 10 0RF Patient Comments: patient states took this only when back was bad. methylprednisolone [Medrol (Jules)] 4 mg tablets,dose pack See Rx Instructions .ROUTE .COMPLEX Qty: 21 0RF Patient Comments: patient states took this only when back was bad. Rx Instructions: orally per package directions orphenadrine citrate 100 mg tablet extended release 100 mg PO BID Qty: 10 0RF Patient Comments: patient states took this only when back was bad. estradiol 0.1 mg/24 hr patch semiweekly Patient Comments: CHANGE 2 PATCH ON THE SKIN TWICE WEEKLY omeprazole 40 mg capsule,delayed release(DR/EC) 40 mg PO PRN PRN spironolactone 50 mg tablet 100 mg PO DAILY Discharge Instructions Additional Instructions: Please follow-up closely with your mental health advocates. Please abide by the safety plan that has been made between you and your mental health advocate. Please respond to the check-in calls as discussed. If you notice any worsening of your symptoms, or any new symptoms such as vomiting, diarrhea, fever, chills, shortness of breath, chest pain, numbness, weakness, or fainting , please return immediately to the emergency department for reevaluation. Please follow up with your primary care provider as soon as possible for reassessment and reevaluation. As always, it was a pleasure participating in your medical care today. Referrals: Jessica Garcia [Primary Care Provider] -
--- NOTE | 2022-07-05 12:37 | NUR.NOTE ---
Nursing Note: pT was given back her belongings, pT refused to sign paperwork stating her belongings were in her possession as hospital personal needed to cut the shirt on pTs arrival. pT is upset about the cut shirt, stating the hospital owe's them a 'new one'.
[2022-07-05] MEDS: MORPHine 4 MG/ML SYR IM (12:39)
--- NOTE | 2022-07-05 13:27 | MHPN_ITS ---
Date of service: 07/05/22 Time of Service: 13:27 PHQ-9 Over the last 2 weeks, how often have you been bothered by any of the following problems? 1. Little interest or pleasure in doing things: not at all 2. Feeling down, depressed, or hopeless: nearly every day 3. Trouble falling or staying asleep, or sleeping too much: nearly every day 4. Feeling tired or having little energy: not at all 5. Poor appetite or overeating: nearly every day 6. Feeling bad about yourself - or that you are a failure or have let yourself and your family down: nearly every day 7. Trouble concentrating on things, such as reading the newspaper or watching television: not at all 8. Moving or speaking so slowly that other people could have noticed? - Or the opposite - being so fidgety or restless that you have been moving around a lot more than usual: nearly every day 9. Thoughts that you would be better off or of hurting yourself in some way: nearly every day Total score: 18 If you checked off any problems, how difficult have these problems made it for y ou to do your work, take care of things at home, or get along with other people?: not difficult at all Source: Developed by Drs. Adonis Deleon, Kim Greco, Ray Dillon and colleagues, with an educational richard from [employer]. Suicide Severity Rate CSSRS Have you wished you were or wished you could go to sleep and not wake up?: Yes Have you actually had any thoughts of killing yourself?: Yes CSSRS2 Have you been thinking about how you might do this?: Yes Have you had these thoughts and had some intention of acting on them?: Yes Have you started to work out or worked out the details of how to kill yourself? Do you intend to carry out this plan?: No CSSRS3 Have you ever done anything, started to do anything or prepared to do anything to end your life?: Yes CSSRS4 Was this within the past three months?: No Screening Score Total Score: 6 Screening: Positive Mental Health Emergency Note Release [facility] release signed:: Yes Reason for Visit Client presented to the ED after [facility] went to do a welfare check and found her unresponsive following an intentional overdose per the client's report on 07.05.22 which was to try and get rid of the pain in her feet caused by neuropathy. In the last 2 weeks has the pt presented for ES prior to today?: Unknown Client Information Client is: Adult Outpatient Well Housed: Yes Non Suicidal Self Injury Current: No History: No Safety Risk/Harm to Self or Others Current Ideation to Harm Self or Others: Yes to others. (Thoughts no plan to kill his step father who she also stated he may before anyway due to having cancer he is is not treating. ) Intent: No Plan: no, does not have a plan. History of becoming violent with another person(any age): no history of violence with others. Risk: Does risk to harm exist?: yes. Access to means: No. Risk: Moderate Risk Duty to warn indicated: No Asssessment/Mental Status Appearance: Disheveled Attitude: Cooperative and Hostile Behavior: Repetitive movements (Rubbing feet which she states are in pain. ) Speech: Normal Affect: Cogruent with mood Mood: Stressed, Anxious and Irritable Thought process: Goal directed Hallucinations: No Delusions: No Attention: Unremarkable Perception: Not impaired Orientation: Fully orientated Memory: Intact Insight: Good Judgement: Fair Neurovegetative Symptoms Sleep: Decrease Appetitie: Increase Interests: No change Energy: Decrease Libido: Not applicable Substance Use: ETOH dependence Do you use nicotine?: Yes Have you used substances in the last 7 days?: yes, ETOH Additional Issues: Assaultive/Threatening Behavior: No Medical Concerns: No Client engaged in active self harm w/weapon: No Threatening to run away: No Child reported abuse/neglect: No Voluntarily presenting for services: Yes Domestic violence is a concern: No Extreme Psychosis or extreme behavior is present: No Impression Client is a 56 year old, , born male transitioning to female who is living with her mother and step father because she has no other place to live. The client prior to that had been living in a halfway through the [place] [facility] until those services ended. She is diagnosed with MDD. Client is disabled and is on housing wait lists however, those lists are long. Client shared concerns about returning home to her mothers because her mother and step father do not support her transition and because her mother saw her in a mini skirt and wig last night and was crying she did not think they would accept her back. This clinician asked her about where else she could go and that there was nothing a facility could do to help her with her physical pain. This clinician requested the client outreach to her medical team for advice and treatment options. Client is dealing with a great deal of stress surrounding her housing issues, being accepted for who she identifies as and has no natural supports. She is already accepting case management and therapy at [facility] to assist with these. Resources Reosurces reviewed and given:: [facility] and [facility] Plan/Disposition Recommended Disposition: PCP/Office visit and Therapy. Plan: Client cleared from to return home. Her mother will pick her up when ready. Client will do daily check in calls with [facility] at 8pm daily through the weekend and then will utilize [id number] as needed. Person reported agreement to plan: Yes Reports/communication Outcome discussed with: ED/Personnel
--- NOTE | 2022-07-05 15:50 | CMPROGNOTE_ITS ---
- If Service Date Differs Date of service: 07/05/22 Time of Service: 13:00 Care Management Progress Note Diane was screened by [facility] Clinician and a safety plan is established. Diane is transported home via private vehicle with family. Diane will follow up with [facility], primary care and discharge plan of care as prescribed.
--- NOTE | 2022-07-05 15:50 | PDOC.ERCMPRO ---
- If Service Date Differs Date of service: 07/05/22 Time of Service: 13:00 Care Management Progress Note Diane was screened by [facility] Clinician and a safety plan is established. Diane is transported home via private vehicle with family. Diane will follow up with [facility], primary care and discharge plan of care as prescribed.
== END 2022-07-05 17:56 | disposition home or self-care (01) ==
PROVIDERS: Physician Assistant; Emergency Provider Student in an Organized Health Care Education/Training Program; PCP Nurse Practitioner Family
DX: T42.6X2A Poisoning by other antiepileptic and sedative-hypnotic drugs, intentional self-harm, initial encounter (principal); I12.9 Hypertensive chronic kidney disease with stage 1 through stage 4 chronic kidney disease, or unspecified chronic kidney disease; N18.9 Chronic kidney disease, unspecified; R74.8 Abnormal levels of other serum enzymes
CPT/HCPCS: 80053; 80307; 93005; 96361; 96365; 96366; 99285; 71045; 80320; 80329; 81003; 83735; 84484; 85025; 93010; J0131; J2270

== ENCOUNTER 2022-07-10 20:17 | Emergency (ER) | payer MEDICAID, SELFPAY ==
[2022-07-10 20:22] VITALS: BP 142/89; PULSE 73; RESP 16; TEMP 36.6; O2SAT 98
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
[2022-07-10] MEDS: LORazepam 1 MG TAB PO (20:46)
--- NOTE | 2022-07-10 21:06 | NUR.NOTE ---
Nursing Note: pT has a bag of valuable belongings in the Security office. VIDHYA LARSEN gave belongings to AT, peace officer around 21:00 on 07/10/2022
[2022-07-10] MEDS: Lidocaine 5% Patch 1 PATCH (23:30)
--- NOTE | 2022-07-11 00:44 | NUR.NOTE ---
Nursing Note: @ 2300 Pt requesting clothes and wants to leave. Discharge prepared, upon attempting to give discharge, pt stated I'm not leaving. Dr. Martel notified. @ 2320 Dr. Martel @ bedside@ 2330 Lidoderm patches applied to bilat feet, attempted again to discharge, pt refused. Dr. Martel notified. @ 2335 Dr. Martel @ bedside @ 2340 pt changed mind on discharge, will be staying
[2022-07-11] MEDS: Melatonin 3 MG TAB 15 MG PO (02:01)
--- NOTE | 2022-07-11 07:08 | W.EDPROG ---
Date of service: 07/11/22 Time of Service: 07:08 Medical Decision Making Patient was initially discharged by Dr. Bony Pettit. Please refer to his HPI, physical exam, assessment and plan. However shortly thereafter being discharged the patient refused to leave the emergency department and stated that I actually want to stay, I do not want to leave. I want to be admitted to a mental health facility. Patient still complaining of pain in her toes. I did apply Lidoderm patches to both feet which did give the patient some relief. We did discuss this with mental health, they will continue to look for placement for the patient. Discharge Plan Disposition Patient Disposition: Home Condition: Improving Discharge Details Clinical Impression: Depression Primary Care Provider: Jessica Garcia ED Provider: Rohan Martel Home Meds and New Rx's Prescriptions: No Action bimatoprost [Latisse] 0.03 % Drops With Applicator 1 drp TOPICAL HS amlodipine 5 mg tablet 5 mg PO DAILY Patient Comments: patient states they stopped taking it. Mavyret 100-40 mg tablet 3 tab PO .QHS lisinopril 20 mg tablet 20 mg PO DAILY folic acid 1 mg Tablet 1 mg PO QAM Qty: 0 0RF thiamine mononitrate (vit B1) [Vitamin B-1 (mononitrate)] 100 mg Tablet 100 mg PO QAM Qty: 0 0RF orphenadrine citrate 100 mg tablet extended release 100 mg PO BID Qty: 10 0RF Patient Comments: patient states took this only when back was bad. estradiol 0.1 mg/24 hr patch semiweekly See Rx Instructions .ROUTE .COMPLEX Patient Comments: CHANGE 2 PATCH ON THE SKIN TWICE WEEKLY Rx Instructions: 2 patch transdermally Q friday and Friday PM omeprazole 40 mg capsule,delayed release(DR/EC) 40 mg PO PRN PRN spironolactone 50 mg tablet 100 mg PO DAILY Patient Comments: TAKE TWO TABLETS BY MOUTH EVERY DAY.UNTIL 100MG TABLETS BECOME AVAILABLE AGAIN Discharge Instructions Instructions: Depression (ED) Additional Instructions: Please follow-up with the resources provided to you by [facility] [employer] services.
--- NOTE | 2022-07-11 08:10 | W.EDPROG ---
Date of service: 07/11/22 Time of Service: 08:00 Medical Decision Making 0800 --please see previous provider's notes for initial presentation, exam and plan. Case endorsed to continue to monitor while awaiting placement. 1899 --[facility] called to report they may have a bed available tomorrow - they are requesting labs and a UDS with her recent elevated creatinine. 1999 --patient's estradiol patch and spironolactone has been ordered today. No other events today. Case endorsed to Dr. Mratel to continue to monitor while awaiting placement. Medical Records Medical records reviewed: Yes I reviewed the patient's medical records. Sign Out Sign Out Data: Sign Out Comment: Pending placement to mental health facility, voluntary. Last updated by Rohan Martel DO at 07/11/22 07:09 Discharge Plan Disposition Patient Disposition: Home Condition: Improving Discharge Details Clinical Impression: Depression Primary Care Provider: Jessica Garcia ED Provider: Nieves Tsang Home Meds and New Rx's Prescriptions: No Action bimatoprost [Latisse] 0.03 % Drops With Applicator 1 drp TOPICAL HS amlodipine 5 mg tablet 5 mg PO DAILY Patient Comments: patient states they stopped taking it. Mavyret 100-40 mg tablet 3 tab PO .QHS lisinopril 20 mg tablet 20 mg PO DAILY folic acid 1 mg Tablet 1 mg PO QAM Qty: 0 0RF thiamine mononitrate (vit B1) [Vitamin B-1 (mononitrate)] 100 mg Tablet 100 mg PO QAM Qty: 0 0RF orphenadrine citrate 100 mg tablet extended release 100 mg PO BID Qty: 10 0RF Patient Comments: patient states took this only when back was bad. estradiol 0.1 mg/24 hr patch semiweekly See Rx Instructions .ROUTE .COMPLEX Patient Comments: CHANGE 2 PATCH ON THE SKIN TWICE WEEKLY Rx Instructions: 2 patch transdermally Q friday and Friday PM omeprazole 40 mg capsule,delayed release(DR/EC) 40 mg PO PRN PRN spironolactone 50 mg tablet 100 mg PO DAILY Patient Comments: TAKE TWO TABLETS BY MOUTH EVERY DAY.UNTIL 100MG TABLETS BECOME AVAILABLE AGAIN Discharge Instructions Instructions: Depression (ED) Additional Instructions: Please follow-up with the resources provided to you by [facility] human services.
--- NOTE | 2022-07-11 10:07 | CMSP_ITS ---
- If Service Date Differs Date of service: 07/11/22 Time of Service: 10:07 Care Management Safety Plan Status: Voluntary - Reason for Wait Reason for Wait: Inpatient Admission CHIEF COMPLAINT: Diane presents in the ED for suicidal ideation. She reports a number of stressors including a stressful living situation and conflict with her elderly parents, along with physical health issues. Diane was last seen in the ED approximately a week ago after ingesting an intentional overdose of medication. She subsequently discharged home on a safety plan created with [facility]. Last evening, Diane returned to [facility] seeking a voluntary psychiatric hospitalization. She was assessed by Fabian, [facility] crisis screener, and found to meet criteria for a voluntary placement. She will remain at [facility] and will be reassessed daily by [facility] until a psych bed can be secured for her. VOLUNTARY FOR INPATIENT PSYCHIATRIC STABILIZATION. Patient is appropriate in all interactions since arriving at [facility]; Pt has demonstrated appropriate coping and communication skills, has articulated his or her needs and concerns and is fully engaged during staff interactions. Safety plan has been established with patient, and care team, to adhere to patient goals, identify restrictions based on behavioral status, address nutrition, and determine allowed personal belongings, tools for hygiene and personal care. Determine level of activity including ambulation, level of supervision, visitors, and determine privileges based on behaviors and level of engagement by pt. SAFETY PLAN: 1. Will remain on suicide precautions. In Paper Clothes 2. Will remain in room under direct supervision of one-on-one staff at all times provided by [employer], BISTRO SERVER, ELECTRICIAN HELPER AUTOMOTIVE instrument calibrator. 3. May have paper cups, plates, finger foods as well as a cardboard spoon with which to eat meals. 4. Follow [facility] Management of the Admitted Behavioral Health Patient policy. 5. Comfort bath system only, shower permitted with escort at RN discretion. Razors are not permitted at this time. 6. No personal belongings-soft items permitted at RN discretion. 7. Visitors-none at this time. 8. Activities: soft cart items, music tablet, television is available and other activities at RN discretion. 9. Bathroom privileges with escort in the ED, available in room without limitation on M/S. 10. Phone: contact limited to family at this time, via [employer] hospital phone at RN discretion. 11. Due to VOLUNTARY status, if patient wishes to leave [facility], staff will contact [facility] Crisis Screener ([phone]) and On-Call Middle [employer] French Teacher ([phone]) as soon as possible. In the event of elopement, notify [facility] Police ([phone]). Patient is currently voluntarily at [facility] and seeking inpatient admission when a bed becomes available. [facility] Frontline Welding Machine Assembler will continue seeking placement. Please contact the Electronic Video Games Servicer Middle [employer] French Teacher ([phone]) and [facility] Welding Machine Assembler ([phone]) for any needed changes in the Safety Plan. Safety plan has been provided to interdepartmental care team.
--- NOTE | 2022-07-11 10:07 | PDOC.CMSAFED ---
- If Service Date Differs Date of service: 07/11/22 Time of Service: 10:07 Care Management Safety Plan Status: Voluntary - Reason for Wait Reason for Wait: Inpatient Admission CHIEF COMPLAINT: Diane presents in the ED for suicidal ideation. She reports a number of stressors including a stressful living situation and conflict with her elderly parents, along with physical health issues. Diane was last seen in the ED approximately a week ago after ingesting an intentional overdose of medication. She subsequently discharged home on a safety plan created with [facility]. Last evening, Diane returned to [facility] seeking a voluntary psychiatric hospitalization. She was assessed by Fabian, [facility] crisis screener, and found to meet criteria for a voluntary placement. She will remain at [facility] and will be reassessed daily by [facility] until a psych bed can be secured for her. VOLUNTARY FOR INPATIENT PSYCHIATRIC STABILIZATION. Patient is appropriate in all interactions since arriving at [facility]; Pt has demonstrated appropriate coping and communication skills, has articulated his or her needs and concerns and is fully engaged during staff interactions. Safety plan has been established with patient, and care team, to adhere to patient goals, identify restrictions based on behavioral status, address nutrition, and determine allowed personal belongings, tools for hygiene and personal care. Determine level of activity including ambulation, level of supervision, visitors, and determine privileges based on behaviors and level of engagement by pt. SAFETY PLAN: 1. Will remain on suicide precautions. In Paper Clothes 2. Will remain in room under direct supervision of one-on-one staff at all times provided by [employer], WHEEL PRESSER, CURRICULUM SUPERVISOR feather renovator. 3. May have paper cups, plates, finger foods as well as a cardboard spoon with which to eat meals. 4. Follow [facility] Management of the Admitted Behavioral Health Patient policy. 5. Comfort bath system only, shower permitted with escort at RN discretion. Razors are not permitted at this time. 6. No personal belongings-soft items permitted at RN discretion. 7. Visitors-none at this time. 8. Activities: soft cart items, music tablet, television is available and other activities at RN discretion. 9. Bathroom privileges with escort in the ED, available in room without limitation on M/S. 10. Phone: contact limited to family at this time, via [email or web address] hospital phone at RN discretion. 11. Due to VOLUNTARY status, if patient wishes to leave [facility], staff will contact [facility] Crisis Screener ([phone]) and On-Call Floor Space Allocator ([phone]) as soon as possible. In the event of elopement, notify [facility] Police ([phone]). Patient is currently voluntarily at [facility] and seeking inpatient admission when a bed becomes available. [facility] Frontline Outboard Technician will continue seeking placement. Please contact the Director Information Security Floor Space Allocator ([phone]) and [facility] Outboard Technician ([phone]) for any needed changes in the Safety Plan. Safety plan has been provided to interdepartmental care team.
--- NOTE | 2022-07-11 15:13 | NUR.NOTE ---
Nursing Note: Patient's own (home) spiralactone and estrogen patches are being held at pharmacy.
[2022-07-11] MEDS: Spironolactone 50 MG TAB 100 MG PO (15:48)
[2022-07-11 16:10] VITALS: BP 145/83; PULSE 62; RESP 16; TEMP 36.4; O2SAT 98
[2022-07-11] MEDS: Lidocaine 5% Patch 2 PATCH TP (19:44)
[2022-07-11 20:27] LABS: Abs Immature Grans 0.02 10^3/uL (0.0-0.06); Absolute Basophil Count 0.05 10^3/uL (0.0-0.2); Absolute Eosinophil Count 0.28 10^3/uL (0.0-0.7); Absolute Monocyte Count 0.57 10^3/uL (0.1-0.8); Absolute Neutrophil Count 4.02 10^3/uL (1.2-6.7); Basophils % 0.7; Eosinophils % 3.7; HCT 39.1 % (40.0-50.0); HGB 13.7 g/dL (13.5-17.5); Immature Grans % 0.3; Lymphocytes % 34.5; MCH 36.7 pg (27.0-33.0); MCV 105 fL (80-95); MPV 9.4 fL (8.0-11.0); Monocytes % 7.6; Neutrophils % 53.2; Platelet Count 118 10^3/uL (130-400); RBC 3.73 10^6/uL (4.36-5.78); RDW 13.2 % (11.8-14.1); RDW-SD 50.9 fL; WBC 7.54 10^3/uL (4.4-10.8)
[2022-07-11 21:00] LABS: ALT 96 U/L (16-63); AST 68 U/L (15-37); Albumin 3.6 g/dL (3.4-5.0); Alkaline Phosphatase 84 U/L (46-116); Anion Gap 5.7 mmol/L (3-11); BUN 14 mg/dL (7-18); Bilirubin, Total 0.6 mg/dL (0.2-1.0); CO2 31.3 mmol/L (21.0-32.0); CREATININE 1.4 mg/dL (0.70-1.30); Calcium 9.1 mg/dL (8.5-10.1); Chloride 101 mmol/L (98-107); Glucose 118 mg/dL (74-106); Potassium 4.4 mmol/L (3.5-5.1); Sodium 138 mmol/L (136-145); Total Protein 8.1 g/dL (6.4-8.2)
[2022-07-11 21:01] LABS: ETHANOL BLOOD < 3.0 mg/dL (<10)
[2022-07-11 21:29] LABS: *AMPHETAMINES SCREEN URINE Negative (Negative); *BARBITURATES SCREEN URINE Negative (Negative); *BENZODIAZEPINES SCREEN URINE Negative (Negative); Cannabinoids THC Positive (Negative); Cocaine Screen,Urine Negative (Negative); METHADONE URINE SCREEN Negative (Negative); OPIATES URINE SCREEN Negative (Negative); Tricyclic Antidepressants Negative (Negative)
[2022-07-12] MEDS: Ondansetron O.D.T. 4 MG TABEF PO (00:04)
[2022-07-12] MEDS: diphenhydrAMINE 25 MG CAP 50 MG PO (02:29)
--- NOTE | 2022-07-12 07:54 | NUR.NOTE ---
pt resting at this time, respirations even and unlabored. Sitter at bedside.
[2022-07-12 08:45] VITALS: BP 114/75; PULSE 56; RESP 18; TEMP 36.5; O2SAT 97
[2022-07-12] MEDS: Spironolactone 50 MG TAB 100 MG PO (08:46)
[2022-07-12] MEDS: Lidocaine 5% Patch 2 PATCH TP (08:46)
--- NOTE | 2022-07-12 09:13 | NUR.NOTE ---
pt provided with a breakfast tray
--- NOTE | 2022-07-12 09:31 | NUR.NOTE ---
pt changed into new paper scrubs and provided with toothbrush and toothpaste. items removed after pts use
--- NOTE | 2022-07-12 09:53 | CMPROGNOTE_ITS ---
- If Service Date Differs Date of service: 07/12/22 Time of Service: 09:53 Care Management Progress Note 9:30am- CM talked to ED staff regarding Diane. Per report, Diane has a stressful living situation and has regular conflicts with her elderly parents, whom she lives with. 9:40am- CM called [facility] to check in on plan for Diane. Vanessa, [facility], stated that [facility] is considering her for admission today on their LGBTQ unit, pending an anticipated discharge. CM will continue to follow. 10:30am- ED called CM to inform that the MD to MD has been completed between [facility] and [facility]. CM called [facility] to confirm that transport could be initiated. [facility] informed CM that they will provide transport, and will call the ED directly once they have a time that transport will arrive to pepper picker Diane. CM will continue to follow. 12:30pm- ED confirmed that transport coordinated by [facility] will arrive at 3pm to transport Diane to their facility.
--- NOTE | 2022-07-12 10:01 | NUR.NOTE ---
report called to [facility]. cindy SMALL at this time
[2022-07-12 15:08] VITALS: BP 149/95; PULSE 63; RESP 18; O2SAT 99
--- NOTE | 2022-07-12 15:22 | NUR.NOTE ---
pts belongings returned to pt including money, make up, and cigarettes along with a number of other belongings.
== END 2022-07-12 15:35 ==
PROVIDERS: Physician Assistant; Emergency Provider Emergency Medicine; PCP Nurse Practitioner Family
DX: F32.A Depression, unspecified (principal); Z79.899 Other long term (current) drug therapy
CPT/HCPCS: 80053; 80307; 99285; 80320; 85025